=== PATIENT | female | born 1940 | race Caucasian/White ===

== ENCOUNTER → 2017-08-24 15:14 | Outpatient (CLI) | payer MEDICARE, MEDICAID, SELFPAY ==
--- NOTE | 2017-08-24 | DI.MG.S_ITS ---
BILATERAL DIGITAL SCREENING MAMMOGRAM 3D/2D WITH CAD: 08/24/2017 CLINICAL: Routine screening. Family history of breast cancer. Comparison is made to exams dated: 01/12/2016 mammogram, 09/20/2014 mammogram, and 02/19/2013 mammogram - [facility]. The tissue of both breasts is heterogeneously dense. This may lower the sensitivity of mammography. Current study was also evaluated with a Computer Aided Detection (CAD) system. No significant masses, calcifications, or other findings are seen in either breast. There has been no significant interval change. IMPRESSION: NEGATIVE There is no mammographic evidence of malignancy. A 1 year screening mammogram is recommended. This exam was interpreted at Station ID: [id number]. NOTE: For mammograms, a report in lay terms will be sent to the patient. Approximately 15% of breast malignancies will not be visualized mammographically. In the management of a palpable breast mass, a negative mammogram must not discourage biopsy of a clinically suspicious lesion. Electronically Signed By: Griffin mathis/willow:08/24/2017 16:36:49 letter sent: Normal Exam ACR BI-RADS Category 1: Negative [id number]
== END ==
PROVIDERS: Family Provider Internal Medicine; PCP Internal Medicine; Visit Provider Internal Medicine
DX: Z12.31 Encounter for screening mammogram for malignant neoplasm of breast (principal); Z80.3 Family history of malignant neoplasm of breast
CPT/HCPCS: 77063; 77067

== ENCOUNTER → 2017-09-15 15:04 | Outpatient (CLI) | payer MEDICARE, MEDICAID, SELFPAY ==
--- NOTE | 2017-09-15 | DI.RAD.S_ITS ---
PROCEDURE: XR CHEST 2V INDICATIONS: RHEUMATOID ARTHRITIS TECHNIQUE: 2 views of the chest were acquired. COMPARISON: [facility], , CHEST 2 VIEW, 07/17/2012, 10:45. FINDINGS: Surgical changes and devices: Surgical clips right upper quadrant. Lungs and pleura: No pleural effusions or pneumothorax. Lungs are clear. Mediastinum: Mediastinal contours are normal. Heart size is normal. Aortic calcification and mild tortuosity. Bones and chest wall: No suspicious bony abnormalities. Soft tissues appear unremarkable. IMPRESSION: No acute cardiopulmonary abnormality Dictated by: Tunde Hutton M.D. on 09/15/2017 at 15:32 Approved by: Tunde Hutton M.D. on 09/15/2017 at 15:33
== END ==
PROVIDERS: PCP Internal Medicine; Visit Provider Nurse Practitioner
DX: R06.9 Unspecified abnormalities of breathing (principal); R06.02 Shortness of breath
CPT/HCPCS: 71046

== ENCOUNTER 2017-10-04 13:58 | Emergency (ER) | payer MEDICARE, MEDICAID, SELFPAY ==
--- NOTE | 2017-10-04 14:08 | ED.CHESTPAIN ---
HPI - Chest Pain <Magaly King PA-C - Last Filed: 10/04/17 22:14> General Chief Complaint: Chest Pain Stated Complaint: CHEST PRESSURE Time Seen by Provider: 10/04/17 14:08 Source: patient Mode of arrival: ambulatory Limitations: no limitations History of Present Illness HPI narrative: This 77-year-old female comes to the ED today due to chest discomfort, which mainly occurred last weekend. She states that she felt like she had ?a fold in the middle? across her central chest and shoulders areas which worsened when she stood up straight. She describes this as a pressure sensation that caused her to have to make a lot of effort to stand but then she would feel it if she straightened up. She felt slightly short of breath when she stood straight. She has rheumatoid arthritis and thought this was secondary from changing her pain medication abruptly back from morphine to [place]. She states this persisted over the weekend but is better now, not present today. She denies dyspnea or chest pressure currently. She states she has her usual back and rib pain. She states that she has not had any new cough, fever, chills, or sweats. She has not had any new nausea or vomiting. She does have some long-term bloating and poor appetite. She states that she was up last night with some increased urinary frequency which is now resolved. She states that does occur with her Lasix. She states that the chest discomfort stayed the same whether she was walking or resting generally, could be instigated by the position change. She felt it in her shoulder and left side of her neck but not into her lower extremity or other areas. She denies any new trauma. She states that currently, the chest discomfort has resolved. She states maybe her chest feels slightly heavier than usual in general. She states she has her normal level of chronic pain. She states she came in due to calling her PCP for appointment but not able to see her until November. She was concerned that she should have this evaluated sooner Related Data Home Medications Medication Instructions Recorded Confirmed levothyroxine 0.088 mg PO QDAY #0 07/15/12 10/04/17 ascorbic acid (vitamin C) 500 mg PO QDAY #0 09/23/12 10/04/17 cholecalciferol (vitamin D3) 1,000 unit PO QDAY #0 09/23/12 10/04/17 [Vitamin D3] furosemide 40 mg PO QDAY #0 09/23/12 10/04/17 nitroglycerin [Nitrostat] 0.4 mg SUBLINGUAL PRN #0 09/23/12 10/04/17 Probiotic 1 cap PO DAILY 10/04/17 10/04/17 calcium carbonate [Calcium 500] 2 tab PO BID 10/04/17 10/04/17 cranberry 405 mg PO DAILY 10/04/17 10/04/17 metoprolol tartrate 50 mg PO BID 10/04/17 10/04/17 morphine 15 mg PO Q12H 10/04/17 10/04/17 potassium chloride 1 cap PO BID 10/04/17 10/04/17 ramipril 1 cap PO DAILY 10/04/17 10/04/17 ranitidine HCl 1 tab PO BID 10/04/17 10/04/17 Allergies Allergy/AdvReac Type Severity Reaction Status Date / Time Sulfa (Sulfonamide Allergy Mild Rash, hives Unverified 07/06/17 13:06 Antibiotics) [SULFA (SULFONAMIDE ANTIBIOTICS)] cortisone [CORTISONE] AdvReac Mild 'Shot BP Unverified 07/06/17 13:06 up' meperidine [MEPERIDINE] AdvReac Mild Confusion, Unverified 07/06/17 13:06 I get a little nutsy from it. propoxyphene [PROPOXYPHENE] AdvReac Mild Confusion, Unverified 07/06/17 13:06 I get a little nutsy. Review of Systems <Magaly King PA-C - Last Filed: 10/04/17 22:14> Review of Systems All systems reviewed & are unremarkable except as noted in HPI and below Exam <Magaly King PA-C - Last Filed: 10/04/17 22:14> Narrative Exam Narrative: GENERAL APPEARANCE: Patient sitting comfortably, in no distress. NECK/THYROID: Neck supple, no JVD. LUNGS: Clear to auscultation bilaterally. HEART: Regular rate and rhythm without murmur, normal S1, S2, no S3 or S4. ABDOMEN: Soft, NT, ND, + BS x 4 quadrants EXTREMITIES: No cyanosis or edema. No calf tenderness NEUROLOGIC: Alert and oriented, normal speech, and coordination. DERM: No exanthem Initial Vital Signs Initial Vital Signs: Vital Signs Pulse Rate 55 L 10/04/17 14:11 Respiratory Rate 11 L 10/04/17 14:11 Blood Pressure 177/91 H 10/04/17 14:11 Pulse Oximetry 100 10/04/17 14:11 <DO Rodney James Last Filed: 10/06/17 07:22> Initial Vital Signs Initial Vital Signs: Vital Signs Pulse Rate 55 L 10/04/17 14:11 Respiratory Rate 11 L 10/04/17 14:11 Blood Pressure 177/91 H 10/04/17 14:11 Pulse Oximetry 100 10/04/17 14:11 Course <COLLIN Navarrete Last Filed: 10/04/17 22:14> Orders Ordered: Discontinued Medications Sodium Chloride (Normal Saline 0.9%) 1,000 mls @ 150 mls/hr IV CONT [facility] Vital Signs - 8 hr 10/04/17 14:11 10/04/17 14:12 10/04/17 14:45 Temperature 97.8 F Pulse Rate 55 L 55 L 58 L Respiratory Rate 11 L 11 L 13 Blood Pressure 177/91 H Blood Pressure [Left Arm] 177/91 H 182/89 H Pulse Oximetry 100 100 99 10/04/17 15:23 10/04/17 16:07 Temperature Pulse Rate 53 L 65 Respiratory Rate 15 14 Blood Pressure 161/82 H Blood Pressure [Left Arm] 159/81 H Pulse Oximetry 98 100 <DO Rodney James Last Filed: 10/06/17 07:22> Orders Ordered: Discontinued Medications Sodium Chloride (Normal Saline 0.9%) 1,000 mls @ 150 mls/hr IV CONT [facility] Vital Signs - 8 hr 10/04/17 14:11 10/04/17 14:12 10/04/17 14:45 Temperature 97.8 F Pulse Rate 55 L 55 L 58 L Respiratory Rate 11 L 11 L 13 Blood Pressure 177/91 H Blood Pressure [Left Arm] 177/91 H 182/89 H Pulse Oximetry 100 100 99 10/04/17 15:23 10/04/17 16:07 Temperature Pulse Rate 53 L 65 Respiratory Rate 15 14 Blood Pressure 161/82 H Blood Pressure [Left Arm] 159/81 H Pulse Oximetry 98 100 MDM - Chest Pain <COLLIN Navarrete Last Filed: 10/04/17 22:14> Lab Data Result diagrams: 10/04/17 14:42 10/04/17 14:42 Lab Results 10/04/17 10/04/17 Range/Units 14:42 14:42 WBC 6.2 (4.5-11.0) X10^3/uL RBC 3.94 L (4.0-5.2) X10^6/uL Hgb 12.2 (12.0-16.0) g/dL Hct 36.5 (36-46) % MCV 92.6 (80-100) fL MCH 30.8 (26-34) PG MCHC 33.3 (30-36) % RDW 13.2 (11.6-14.8) % Plt Count 293 (150-400) X10^3/uL Neut % (Auto) 63.0 (50-75) % Lymph % (Auto) 21.2 L (25-40) % [place] % (Auto) 12.8 (3-14) % Eos % (Auto) 2.7 (2-4) % Baso % (Auto) 0.3 (0-2) % Neut # (Auto) 3900 (8704-7933) /uL Sodium 143 (137-145) mmol/L Potassium 4.7 (3.4-5.1) mmol/L Chloride 106 (98-107) mmol/L Carbon Dioxide 28 (22-32) mmol/L BUN 17 (7-17) mg/dL Creatinine 0.80 (0.52-1.04) mg/dL Estimated GFR > 60.0 (>60) mL/min BUN/Creatinine Ratio 21.3 (6-22) Glucose 86 (80-110) mg/dL Calcium 9.8 (8.4-10.2) mg/dL Total Bilirubin 0.8 (0.2-1.3) mg/dL AST 37 H (14-36) IU/L ALT 24 (9-52) IU/L Alkaline Phosphatase 75 (38-126) U/L Total Creatine Kinase 103 (30-135) U/L Troponin I < 0.012 (0.01-0.034) ng/mL Total Protein 8.0 (6.3-8.2) g/dL Albumin 4.3 (3.5-5.0) g/dL Globulin 3.7 (1.7-4.1) g/dL Albumin/Globulin Ratio 1.2 (1.0-2.8) Lipase 252 (23-300) U/L ECG Data Attestation: I personally reviewed and interpreted this ECG as follows: (Sinus bradycardia with rate 57, first-degree AV block, and left axis deviation. No acute change) Prior ECG tracings: available for review <Daljit Son DO - Last Filed: 10/06/17 07:22> Lab Data Lab Results 10/04/17 10/04/17 Range/Units 14:42 14:42 WBC 6.2 (4.5-11.0) X10^3/uL RBC 3.94 L (4.0-5.2) X10^6/uL Hgb 12.2 (12.0-16.0) g/dL Hct 36.5 (36-46) % MCV 92.6 (80-100) fL MCH 30.8 (26-34) PG MCHC 33.3 (30-36) % RDW 13.2 (11.6-14.8) % Plt Count 293 (150-400) X10^3/uL Neut % (Auto) 63.0 (50-75) % Lymph % (Auto) 21.2 L (25-40) % [place] % (Auto) 12.8 (3-14) % Eos % (Auto) 2.7 (2-4) % Baso % (Auto) 0.3 (0-2) % Neut # (Auto) 3900 (2771-4527) /uL Sodium 143 (137-145) mmol/L Potassium 4.7 (3.4-5.1) mmol/L Chloride 106 (98-107) mmol/L Carbon Dioxide 28 (22-32) mmol/L BUN 17 (7-17) mg/dL Creatinine 0.80 (0.52-1.04) mg/dL Estimated GFR > 60.0 (>60) mL/min BUN/Creatinine Ratio 21.3 (6-22) Glucose 86 (80-110) mg/dL Calcium 9.8 (8.4-10.2) mg/dL Total Bilirubin 0.8 (0.2-1.3) mg/dL AST 37 H (14-36) IU/L ALT 24 (9-52) IU/L Alkaline Phosphatase 75 (38-126) U/L Total Creatine Kinase 103 (30-135) U/L Troponin I < 0.012 (0.01-0.034) ng/mL Total Protein 8.0 (6.3-8.2) g/dL Albumin 4.3 (3.5-5.0) g/dL Globulin 3.7 (1.7-4.1) g/dL Albumin/Globulin Ratio 1.2 (1.0-2.8) Lipase 252 (23-300) U/L Discharge Plan Departure Patient Disposition: Home, Self-Care Clinical Impression: Atypical chest pain Discharge Date/Time: 10/04/17 16:07 Interventions: ED Discharge Assessment Last Done: 10/04/17 16:07 Instructions: DI for Atypical Chest Pain Activity Restrictions/Additional Instructions: Please return as we talked about if you have acutely worsening symptoms again. Your testing including her heart markers are normal today, but if you start having the acute symptoms again like you had over the weekend, you should return. Otherwise, please call your PCP office and let them know you were seen in the ED for chest pain and we advised you to follow up in the next week to talk about whether any further testing such as a stress test should be done. Prescriptions: No Action levothyroxine 88 MCG tablet 0.088 mg PO QDAY Qty: 0 RF: 0 ascorbic acid (vitamin C) 500 MG tablet 500 mg PO QDAY Qty: 0 RF: 0 cholecalciferol (vitamin D3) [Vitamin D3] 1,000 unit Tablet 1,000 unit PO QDAY Qty: 0 RF: 0 nitroglycerin [Nitrostat] 0.4 MG tablet, sublingual 0.4 mg Sublingual PRN Qty: 0 RF: 0 furosemide 40 MG tablet 40 mg PO QDAY Qty: 0 RF: 0 potassium chloride 10 mEq capsule, extended release 1 cap PO BID RF: 0 calcium carbonate [Calcium 500] 500 mg calcium (1,250 mg) Tablet 2 tab PO BID RF: 0 ranitidine HCl 150 mg tablet 1 tab PO BID RF: 0 ramipril 2.5 mg capsule 1 cap PO DAILY RF: 0 cranberry 405 mg Capsule 405 mg PO DAILY RF: 0 metoprolol tartrate 50 mg tablet 50 mg PO BID RF: 0 morphine 15 mg tablet extended release 15 mg PO Q12H RF: 0 Probiotic 1 cap PO DAILY RF: 0 Referrals: Francoise Yanes MD [Primary Care Provider] - <Daljit Son DO - Last Filed: 10/06/17 07:22> Cosign ED Attending Bala Attestation: I was available for consultation during this patient's emergency department encounter
--- NOTE | 2017-10-04 14:09 | DI.RAD.S_ITS ---
PROCEDURE: XR CHEST 1V INDICATIONS: chest pain TECHNIQUE: One view of the chest was acquired. COMPARISON: [facility], CR, XR CHEST 2V, 09/15/2017, 14:54. FINDINGS: Surgical changes and devices: None. Lungs and pleura: No pleural effusions or pneumothorax. Lungs are clear. Mediastinum: Mediastinal contours appear normal. Heart size is normal. Bones and chest wall: No suspicious bony lesions. Overlying soft tissues appear unremarkable. IMPRESSION: 1. No acute cardiopulmonary disease. Dictated by: Vlad Hernandez M.D. on 10/04/2017 at 14:34 Approved by: Vlad Hernandez M.D. on 10/04/2017 at 14:34
[2017-10-04 14:11] VITALS: BP 177/91; PULSE 55; RESP 11; O2SAT 100
[2017-10-04 14:12] VITALS: BP 177/91; PULSE 55; RESP 11; TEMP 36.6; O2SAT 100
[2017-10-04 14:45] VITALS: BP 182/89; PULSE 58; RESP 13; O2SAT 99
[2017-10-04 14:48] LABS: Add Manual Diff / Slide Review NO; Basophils Percent Auto 0.3 % (0-2); Eosinophils Percent Auto 2.7 % (2-4); Hematocrit 36.5 % (36-46); Hemoglobin 12.2 g/dL (12.0-16.0); Lymphocytes Percent Auto 21.2 % (25-40); Mean Corpuscular HGB Conc 33.3 % (30-36); Mean Corpuscular Hemoglobin 30.8 PG (26-34); Mean Corpuscular Volume 92.6 fL (80-100); Monocytes Percent Auto 12.8 % (3-14); Neutrophils Absolute Auto 3900 /uL (3000-5900); Platelet Count 293 X10^3/uL (150-400); Red Blood Cell Count 3.94 X10^6/uL (4.0-5.2); Red Cell Distribution Width 13.2 % (11.6-14.8); White Blood Cell Count 6.2 X10^3/uL (4.5-11.0)
[2017-10-04 14:57] LABS: Alanine Aminotransferase 24 IU/L (9-52); Albumin 4.3 g/dL (3.5-5.0); Albumin Globulin Ratio 1.2 (1.0-2.8); Alkaline Phosphatase 75 U/L (38-126); Aspartate Aminotransferase 37 IU/L (14-36); BUN Creatinine Ratio 21.3 (6-22); Bilirubin Total 0.8 mg/dL (0.2-1.3); Blood Urea Nitrogen 17 mg/dL (7-17); Calcium 9.8 mg/dL (8.4-10.2); Carbon Dioxide 28 mmol/L (22-32); Chloride 106 mmol/L (98-107); Creatine Kinase 103 U/L (30-135); Estimated Glomerular Filt Rate > 60.0 mL/min (>60); Globulin 3.7 g/dL (1.7-4.1); Glucose 86 mg/dL (80-110); HEMOLYSIS 26 (0-50); Lipase 252 U/L (23-300); Potassium 4.7 mmol/L (3.4-5.1); Sodium 143 mmol/L (137-145)
[2017-10-04 15:12] LABS: Troponin I < 0.012 ng/mL (0.01-0.034)
[2017-10-04 15:23] VITALS: BP 159/81; PULSE 53; RESP 15; O2SAT 98
[2017-10-04 16:07] VITALS: BP 161/82; PULSE 65; RESP 14; O2SAT 100
== END 2017-10-04 16:07 | disposition home or self-care (01) ==
PROVIDERS: Emergency Provider Internal Medicine; Family Provider Internal Medicine; PCP Internal Medicine
DX: R07.89 Other chest pain (principal)
CPT/HCPCS: 36591; 71045; 80053; 82550; 82553; 83690; 84484; 85025; 93005; 99283; 99285

== ENCOUNTER 2017-10-22 05:32 | Emergency (ER) | payer MEDICARE, MEDICAID, SELFPAY ==
[2017-10-22 05:35] VITALS: BP 168/100; PULSE 78; RESP 19; O2SAT 98
[2017-10-22 05:56] VITALS: BP 154/91; PULSE 78; RESP 19; TEMP 36.7; O2SAT 98; BMI 28.1
--- NOTE | 2017-10-22 06:04 | PC.NURSE ---
pt presents to er reporting she may be withdrawing from opioids. she has been taking hydrocodene for [address] michelle has switched her medicaions from hydrocodene to morphine. also she has been switched from enbril to yadi. Her medication regiment changes have not been working for her. her pain is increasing and she is very uncomfortable. Dr michelle has since changed her back to hydrocodone but she is still on enbril. she has an appointment with rhumatologist on tuesday to hopefully switch her back to yadi. she now reports having some tremmors and high blood pressure and is concerned she is withdrawing.
[2017-10-22] MEDS: OXYCODONE/APAP 5/325 PREPACK 1 BOTTLE MISC (06:33)
--- NOTE | 2017-10-22 06:35 | ED_ITS ---
HPI - Recheck/Abnormal Lab/Rx General Chief Complaint: Recheck/Abnormal Lab/Rx Stated Complaint: withdraw form medication Time Seen by Provider: 10/22/17 05:38 Source: patient Mode of arrival: ambulatory Limitations: no limitations History of Present Illness HPI narrative: Patient is a 77-year-old female with severe rheumatoid arthritis and a longstanding history of chronic pain. She has been on hydrocodone for a number of years. A few months ago her primary tried to change her over to extended-release morphine. She said that did not fit her. The morphine was stopped and she was changed back over to her original dose of 5/325 [place] around 09/28/2017. She has noticed since then that it just isn't working like it use to work. She used to be on 7.5 she has taken a couple of 7.5 and still did not get much relief. She has been taking the same amount 4-6 tablets every day she took them yesterday but is not working. She also is changing her rheumatoid arthritis medication. She was on Enbrel for number of years however that was changed to Humira of back in July. She does not feel like Humira is working either so in the process of changing that over to ronna all. However she missed a dose of Humira and has not taken any Enbrel. She has an appointment with her exhibition specialist on October 31. She was does not have any complaints no fevers chills nausea vomiting diarrhea abdominal pain. She has her chronic ongoing all rheumatoid arthritis pain. complaint: medication refill request Related Data Home Medications Medication Instructions Recorded Confirmed levothyroxine 0.088 mg PO QDAY #0 07/15/12 10/22/17 ascorbic acid (vitamin C) 500 mg PO QDAY #0 09/23/12 10/22/17 cholecalciferol (vitamin D3) 1,000 unit PO QDAY #0 09/23/12 10/22/17 [Vitamin D3] furosemide 40 mg PO QDAY #0 09/23/12 10/22/17 nitroglycerin [Nitrostat] 0.4 mg SUBLINGUAL PRN #0 09/23/12 10/22/17 Probiotic 1 cap PO DAILY 10/04/17 10/22/17 calcium carbonate [Calcium 500] 2 tab PO BID 10/04/17 10/22/17 cranberry 405 mg PO DAILY 10/04/17 10/22/17 metoprolol tartrate 50 mg PO BID 10/04/17 10/22/17 potassium chloride 1 cap PO BID 10/04/17 10/22/17 ramipril 1 cap PO DAILY 10/04/17 10/22/17 ranitidine HCl 1 tab PO BID 10/04/17 10/22/17 hydrocodone-acetaminophen 1 tab PO Q4-6H PRN MDD N 10/22/17 10/22/17 Previous Rx's Medication Instructions Recorded oxycodone-acetaminophen [Percocet] 1 tab PO Q4-6H PRN #10 tab 10/22/17 Allergies Allergy/AdvReac Type Severity Reaction Status Date / Time Sulfa (Sulfonamide Allergy Mild Rash, hives Unverified 10/22/17 06:01 Antibiotics) [SULFA (SULFONAMIDE ANTIBIOTICS)] cortisone [CORTISONE] AdvReac Mild 'Shot BP Unverified 10/22/17 06:01 up' meperidine [MEPERIDINE] AdvReac Mild Confusion, Unverified 10/22/17 06:01 I get a little nutsy from it. propoxyphene [PROPOXYPHENE] AdvReac Mild Confusion, Unverified 10/22/17 06:01 I get a little nutsy. Review of Systems Review of Systems All systems reviewed & are unremarkable except as noted in HPI and below Cardiovascular Denies chest pain, Denies rapid heart rate, Denies lightheadedness, Denies dyspnea and Denies dyspnea on exertion Respiratory Denies cough, Denies dyspnea and Denies dyspnea on exertion Gastrointestinal Gastrointestinal: Denies abdominal pain, Denies diarrhea, Denies loose stools and Denies nausea Musculoskeletal Denies back pain, Denies muscle weakness, Denies numbness and Denies tingling Integumentary/Breasts Denies erythema, Denies rash and Denies wounds Neurologic Denies numbness and Denies tingling [facility] Medical History Diverticulosis (Chronic) Goiter (Chronic) Labile hypertension (Chronic) Lumbar degenerative disc disease (Chronic) Osteoporosis (Chronic) Rectal bleeding (Chronic) Rheumatoid arthritis (Chronic) Social History Smoking Status: Never smoker alcohol intake: never substance use type: does not use Exam Initial Vital Signs Initial Vital Signs: Vital Signs Pulse Rate 78 10/22/17 05:35 Respiratory Rate 19 10/22/17 05:35 Blood Pressure 168/100 H 10/22/17 05:35 Pulse Oximetry 98 10/22/17 05:35 GENERAL: [Well-appearing, well-nourished] and in [no acute] distress. HEENT: Head atraumatic,EOMI, pupils reactive CARDIOVASCULAR: Regular rate and rhythm without murmurs, rubs or gallops. RESPIRATORY: Breath sounds equal bilaterally, no wheezes rales or rhonchi. ABDOMEN: Soft, nontender. Normoactive bowel sounds all 4 quadrants. No guarding or rebound. EXTREMITIES: arthritic joints NEUROLOGICAL: Alert and oriented x4.Normal gait and speech. SKIN: Warm, dry, no laceration, no petechiae, no rashes or lesions. Course Orders Ordered: Discontinued Medications Oxycodone/Acetaminophen (Endocet 5/325 [place]) 1 bottle MISC SEEINSTR ONE Stop: 10/22/17 06:29 Last Admin: 10/22/17 06:33 Dose: 1 bottle Vital Signs - 8 hr 10/22/17 05:35 10/22/17 05:56 Temperature 98.1 F Pulse Rate 78 78 Respiratory Rate 19 19 Blood Pressure 154/91 H Blood Pressure [Left Arm] 168/100 H Pulse Oximetry 98 98 MDM - Recheck/Abnormal Lab/Rx MDM Narrative Medical decision making narrative: Patient does not have signs or symptoms of opiate withdrawal more of opiate tolerance. It sounds as though after taking morphine and going back to hydrocodone hydrocodone is no longer working. However she also missed a dose of her Humira which may be why she is having increased pain. She says this is been ongoing even with the Humira. She does not appear toxic or in a severe amount of pain. At this point discussed plan of changing her opiate medication to Percocet. She will try Percocet over the weekend. We discussed she may also need a short course of steroids to help with the pain. She is in the process of changing back to Enbrel. She has appointment with exhibition specialist October 31. She is point with her PCP in 2 days. I discussed all findings with the patient and brother/caregiver. Education has been performed regarding treatment plan, diagnosis, warning signs and symptoms and all concerns have been addressed. Verbally agree with and understood all of the above. Discharge Plan Departure Patient Disposition: Home, Self-Care Clinical Impression: Rheumatoid arthritis, Chronic pain Discharge Date/Time: 10/22/17 06:48 Interventions: ED Discharge Assessment Last Done: 10/22/17 06:47 Instructions: DI for Chronic Pain -- Adult Activity Restrictions/Additional Instructions: *You have been diagnosed with rheumatoid arthritis, chronic pain *What to do: Try Percocet over the weekend to see if it helps her pain. Stop taking hydrocodone DO NOT combine these 2 medications. -if you still do not have relief, discussed with her primary care physician on Tuesday. This may also be because you have missed a dose of Humira. You may need a short course of prednisone as well. Please discuss all these options with your doctor *Continue to take medications as directed Percocet 1 tablet every 4 hr or 2 tablets every 6 hr *Follow up with your primary care provider as scheduled for Tuesday *Return to ER if you should have any new, worsening or concerning symptoms CONTROLLED SUBSTANCE DISCHARGE (Narcotoic/benzodiazepine/Flexeril/Phenergan) 1. You have been prescribed narcotic medications, it does have acetaminophen/ Tylenol/paracetamol in it so do not take extra Tylenol or Tylenol containing products 2. Please understand that we cannot provide further refills of narcotics, benzodiazepines or controlled substances through the ED and her pain management will need to be through your provider. 3. While on these medications you cannot drive or operate heavy machinery. 4. You cannot sign legal documents or perform any duties such as this. 5. As long as you're taking opiate pain medications he should also be taking a stool softener such as Colace, Dulcolax, MiraLAX or prune juice, to help avoid constipation. Prescriptions: New oxycodone-acetaminophen [Percocet] 5-325 mg tablet 1 tab PO Q4-6H PRN (Reason: pain) Qty: 10 RF: 0 No Action levothyroxine 88 MCG tablet 0.088 mg PO QDAY Qty: 0 RF: 0 ascorbic acid (vitamin C) 500 MG tablet 500 mg PO QDAY Qty: 0 RF: 0 cholecalciferol (vitamin D3) [Vitamin D3] 1,000 unit Tablet 1,000 unit PO QDAY Qty: 0 RF: 0 nitroglycerin [Nitrostat] 0.4 MG tablet, sublingual 0.4 mg Sublingual PRN Qty: 0 RF: 0 furosemide 40 MG tablet 40 mg PO QDAY Qty: 0 RF: 0 potassium chloride 10 mEq capsule, extended release 1 cap PO BID RF: 0 calcium carbonate [Calcium 500] 500 mg calcium (1,250 mg) Tablet 2 tab PO BID RF: 0 ranitidine HCl 150 mg tablet 1 tab PO BID RF: 0 ramipril 2.5 mg capsule 1 cap PO DAILY RF: 0 cranberry 405 mg Capsule 405 mg PO DAILY RF: 0 metoprolol tartrate 50 mg tablet 50 mg PO BID RF: 0 Probiotic 1 cap PO DAILY RF: 0 hydrocodone-acetaminophen 5-325 mg tablet 1 tab PO Q4-6H MDD N PRN (Reason: Pain, Moderate) RF: 0
[2017-10-22 06:47] VITALS: BP 138/87; PULSE 62; RESP 14; O2SAT 98
== END 2017-10-22 06:48 | disposition home or self-care (01) ==
PROVIDERS: Emergency Provider Emergency Medicine; Family Provider Internal Medicine; PCP Internal Medicine
DX: M06.9 Rheumatoid arthritis, unspecified (principal); G89.29 Other chronic pain
CPT/HCPCS: 99282; 99291

== ENCOUNTER 2017-11-24 00:58 | Emergency (ER) | payer MEDICARE, MEDICAID, SELFPAY ==
[2017-11-24 01:12] VITALS: BP 140/125; PULSE 66; RESP 16; TEMP 36.4; O2SAT 100; BMI 27.4
--- NOTE | 2017-11-24 01:54 | ED.CHESTPAIN ---
HPI - Chest Pain General Chief Complaint: Chest Pain Stated Complaint: CHEST HURTS, SQUEEZING Time Seen by Provider: 11/24/17 00:59 Source: patient and family Mode of arrival: ambulatory Limitations: no limitations History of Present Illness HPI narrative: 77-year-old female with many years of chronic chest pain presents to the emergency department with her in the chief complaint of chest pain not on like which she has dealt with for many years. For quite some time the patient's pain had been under control until few years ago when she was taken off opioids input on Neurontin. Since then her difficulty in controlling pain has been present if not increasing. She initially had been controlled well with hydrocodone and has gone through various trials of enbrel and Humira. She denies new pain, new symptoms such as SOB, fever, chills, or other MD complaint: chest pain Duration: constant Onset: during rest Pain location: substernal Severity: moderate Quality: tightness and aching Pain radiation: RUE and LUE Relieving factors: nothing Exacerbating factors: nothing Related Data Home Medications Medication Instructions Recorded Confirmed levothyroxine 0.088 mg PO QDAY #0 07/15/12 10/22/17 ascorbic acid (vitamin C) 500 mg PO QDAY #0 09/23/12 10/22/17 cholecalciferol (vitamin D3) 1,000 unit PO QDAY #0 09/23/12 10/22/17 [Vitamin D3] furosemide 40 mg PO QDAY #0 09/23/12 10/22/17 nitroglycerin [Nitrostat] 0.4 mg SUBLINGUAL PRN #0 09/23/12 10/22/17 Probiotic 1 cap PO DAILY 10/04/17 10/22/17 calcium carbonate [Calcium 500] 2 tab PO BID 10/04/17 10/22/17 cranberry 405 mg PO DAILY 10/04/17 10/22/17 metoprolol tartrate 50 mg PO BID 10/04/17 10/22/17 potassium chloride 1 cap PO BID 10/04/17 10/22/17 ramipril 1 cap PO DAILY 10/04/17 10/22/17 ranitidine HCl 1 tab PO BID 10/04/17 10/22/17 hydrocodone-acetaminophen 1 tab PO Q4-6H PRN MDD N 10/22/17 10/22/17 Previous Rx's Medication Instructions Recorded oxycodone-acetaminophen [Percocet] 1 tab PO Q4-6H PRN #10 tab 10/22/17 hydromorphone [Dilaudid] 2 mg PO Q6H PRN #14 tab 11/24/17 Allergies Allergy/AdvReac Type Severity Reaction Status Date / Time Sulfa (Sulfonamide Allergy Mild Rash, hives Unverified 10/22/17 06:01 Antibiotics) [SULFA (SULFONAMIDE ANTIBIOTICS)] cortisone [CORTISONE] AdvReac Mild 'Shot BP Unverified 10/22/17 06:01 up' meperidine [MEPERIDINE] AdvReac Mild Confusion, Unverified 10/22/17 06:01 I get a little nutsy from it. propoxyphene [PROPOXYPHENE] AdvReac Mild Confusion, Unverified 10/22/17 06:01 I get a little nutsy. Review of Systems Review of Systems All systems reviewed & are unremarkable except as noted in HPI and below Constitutional Denies chills, Denies fever(s), Denies lethargy and Denies weakness Eyes Denies change in vision, Denies eye discharge, Denies irritation and Denies loss of vision ENT Ears, Nose, Mouth, and Throat: Denies change in voice, Denies neck pain and Denies sore throat Cardiovascular Reports chest pain, Denies irregular heart rhythm, Denies lightheadedness, Denies palpitations, Denies dyspnea, Denies dyspnea on exertion and Denies orthopnea Respiratory Denies cough, Denies dyspnea, Denies dyspnea on exertion and Denies wheezing Gastrointestinal Gastrointestinal: Denies abdominal pain, Denies change in bowel habits, Denies diarrhea, Denies nausea and Denies vomiting Genitourinary Denies hematuria, Denies flank pain, Denies urinary incontinence and Denies urinary urgency Musculoskeletal Denies neck pain Integumentary/Breasts Denies pruritus, Denies erythema, Denies rash and Denies wounds Neurologic Denies confusion, Denies loss of vision and Denies weakness Psychiatric Denies anxiety, Denies confusion, Denies depression, Denies homicidal ideation and Denies suicidal ideation Endocrine Denies palpitations Hematologic/Lymphatic Denies easy bruising Allergic/Immunologic Denies wheezing [facility] Medical History Diverticulosis (Chronic) Goiter (Chronic) Labile hypertension (Chronic) Lumbar degenerative disc disease (Chronic) Osteoporosis (Chronic) Rectal bleeding (Chronic) Rheumatoid arthritis (Chronic) Social History Smoking Status: Never smoker alcohol intake: never substance use type: does not use Exam Narrative Exam Narrative: GENERAL: Patient is obviously uncomfortable but resting HEAD: Atraumatic. Normocephalic. No temporal or scalp tenderness. EYES: Pupils equal round and reactive. Extraocular motions intact. No scleral icterus. No injection or drainage. ENT: Nose without bleeding, purulent drainage or septal hematoma. Throat without erythema, tonsillar hypertrophy or exudate. Uvula midline. Airway patent. NECK: Trachea midline. No JVD or lymphadenopathy. Supple, nontender, no meningeal signs. CARDIOVASCULAR: Regular rate and rhythm without murmurs, gallops, or rubs. RESPIRATORY: Clear to auscultation. Breath sounds equal bilaterally. No wheezes, rales, or rhonchi. GASTROINTESTINAL: Abdomen soft, non-tender, nondistended. No hepato-splenomegaly, or palpable masses. No guarding. EXTREMITIES: No clubbing, cyanosis, or edema. No joint tenderness, effusion, or edema noted. BACK: Nontender without deformity or crepitance. No flank tenderness. NEURO: AOx3. SKIN: No rash or erythema. Initial Vital Signs Initial Vital Signs: Vital Signs Temperature 97.6 F 11/24/17 01:12 Pulse Rate 66 11/24/17 01:12 Respiratory Rate 16 11/24/17 01:12 Blood Pressure 140/125 H 11/24/17 01:12 Pulse Oximetry 100 11/24/17 01:12 Course Orders Ordered: ED Orders 11/24/17 EKG-12 Lead Stat 11/24/17 01:40 Basic Metabolic Panel Stat Complete Blood Count AUTO DIFF Stat Troponin I Stat Discontinued Medications Hydromorphone HCl (Dilaudid) 1 mg IV NOW ONE Stop: 11/24/17 03:16 Last Admin: 11/24/17 03:21 Dose: 1 mg Vital Signs - 8 hr 11/24/17 01:12 Temperature 97.6 F Pulse Rate 66 Respiratory Rate 16 Blood Pressure 140/125 H Pulse Oximetry 100 MDM - Chest Pain Lab Data Result diagrams: 11/24/17 01:40 11/24/17 01:40 Lab Results 11/24/17 11/24/17 11/24/17 Range/Units 01:40 01:40 01:40 WBC 7.4 (4.5-11.0) X10^3/uL RBC 3.92 L (4.0-5.2) X10^6/uL Hgb 12.4 (12.0-16.0) g/dL Hct 36.8 (36-46) % MCV 93.8 (80-100) fL MCH 31.5 (26-34) PG MCHC 33.6 (30-36) % RDW 14.4 (11.6-14.8) % Plt Count 278 (150-400) X10^3/uL Neut % (Auto) 58.9 (50-75) % Lymph % (Auto) 23.5 L (25-40) % Letcher % (Auto) 13.7 (3-14) % Eos % (Auto) 3.3 (2-4) % Baso % (Auto) 0.6 (0-2) % Neut # (Auto) 4300 (5077-2050) /uL Sodium 146 H (137-145) mmol/L Potassium 4.4 (3.4-5.1) mmol/L Chloride 108 H (98-107) mmol/L Carbon Dioxide 28 (22-32) mmol/L BUN 18 H (7-17) mg/dL Creatinine 0.80 (0.52-1.04) mg/dL Estimated GFR > 60.0 (>60) mL/min BUN/Creatinine Ratio 22.5 H (6-22) Glucose 109 (80-110) mg/dL Calcium 9.9 (8.4-10.2) mg/dL Troponin I < 0.012 (0.01-0.034) ng/mL Discharge Plan Departure Patient Disposition: Home Clinical Impression: Chest pain Instructions: DI for Chest Pain Activity Restrictions/Additional Instructions: *You have been diagnosed with [ chronic chest pain ] *What to do: *Take medications as directed *Follow up with your primary care provider in 2-3 days, call for an appointment. Let them know you were seen in the Emergency Department and that we ask that you be seen in follow up *Return to ER if you should have any new, worsening or concerning symptoms Prescriptions: New hydromorphone [Dilaudid] 2 mg tablet 2 mg PO Q6H PRN (Reason: pain) Qty: 14 RF: 0 No Action levothyroxine 88 MCG tablet 0.088 mg PO QDAY Qty: 0 RF: 0 ascorbic acid (vitamin C) 500 MG tablet 500 mg PO QDAY Qty: 0 RF: 0 cholecalciferol (vitamin D3) [Vitamin D3] 1,000 unit Tablet 1,000 unit PO QDAY Qty: 0 RF: 0 nitroglycerin [Nitrostat] 0.4 MG tablet, sublingual 0.4 mg Sublingual PRN Qty: 0 RF: 0 furosemide 40 MG tablet 40 mg PO QDAY Qty: 0 RF: 0 potassium chloride 10 mEq capsule, extended release 1 cap PO BID RF: 0 calcium carbonate [Calcium 500] 500 mg calcium (1,250 mg) Tablet 2 tab PO BID RF: 0 ranitidine HCl 150 mg tablet 1 tab PO BID RF: 0 ramipril 2.5 mg capsule 1 cap PO DAILY RF: 0 cranberry 405 mg Capsule 405 mg PO DAILY RF: 0 metoprolol tartrate 50 mg tablet 50 mg PO BID RF: 0 Probiotic 1 cap PO DAILY RF: 0 hydrocodone-acetaminophen 5-325 mg tablet 1 tab PO Q4-6H MDD N PRN (Reason: Pain, Moderate) RF: 0 oxycodone-acetaminophen [Percocet] 5-325 mg tablet 1 tab PO Q4-6H PRN (Reason: pain) Qty: 10 RF: 0
[2017-11-24 02:00] VITALS: BP 140/125; PULSE 66; RESP 16; TEMP 36.4; O2SAT 100; BMI 27.4
[2017-11-24 02:37] LABS: Add Manual Diff / Slide Review NO; Basophils Percent Auto 0.6 % (0-2); Eosinophils Percent Auto 3.3 % (2-4); Hematocrit 36.8 % (36-46); Hemoglobin 12.4 g/dL (12.0-16.0); Lymphocytes Percent Auto 23.5 % (25-40); Mean Corpuscular HGB Conc 33.6 % (30-36); Mean Corpuscular Hemoglobin 31.5 PG (26-34); Mean Corpuscular Volume 93.8 fL (80-100); Monocytes Percent Auto 13.7 % (3-14); Neutrophils Absolute Auto 4300 /uL (3000-5900); Neutrophils Percent Auto 58.9 % (50-75); Platelet Count 278 X10^3/uL (150-400); Red Blood Cell Count 3.92 X10^6/uL (4.0-5.2); Red Cell Distribution Width 14.4 % (11.6-14.8); White Blood Cell Count 7.4 X10^3/uL (4.5-11.0)
[2017-11-24 02:41] LABS: BUN Creatinine Ratio 22.5 (6-22); Blood Urea Nitrogen 18 mg/dL (7-17); Calcium 9.9 mg/dL (8.4-10.2); Carbon Dioxide 28 mmol/L (22-32); Chloride 108 mmol/L (98-107); Estimated Glomerular Filt Rate > 60.0 mL/min (>60); Glucose 109 mg/dL (80-110); HEMOLYSIS 30 (0-50); Potassium 4.4 mmol/L (3.4-5.1); Sodium 146 mmol/L (137-145)
[2017-11-24 02:54] LABS: Troponin I < 0.012 ng/mL (0.01-0.034)
[2017-11-24] MEDS: HYDROMORPHONE 1 MG INJ IV (03:21)
[2017-11-24 04:53] VITALS: BP 179/71; PULSE 56; RESP 14; O2SAT 97
== END 2017-11-24 04:56 | disposition home or self-care (01) ==
PROVIDERS: Emergency Provider Emergency Medicine; Family Provider Internal Medicine; PCP Internal Medicine
DX: R07.89 Other chest pain (principal)
CPT/HCPCS: 80048; 84484; 85025; 93005; 93010; 96374; 99282; 99284; J1170

== ENCOUNTER → 2017-12-02 15:14 | Outpatient (REF) | payer MEDICARE, MEDICAID, SELFPAY ==
[2017-12-02 15:22] LABS: Add Manual Diff / Slide Review NO; Basophils Percent Auto 0.5 % (0-2); Hematocrit 38.5 % (36-46); Lymphocytes Percent Auto 18.5 % (25-40); Mean Corpuscular HGB Conc 33.6 % (30-36); Mean Corpuscular Hemoglobin 31.9 PG (26-34); Mean Corpuscular Volume 94.7 fL (80-100); Monocytes Percent Auto 10.6 % (3-14); Neutrophils Absolute Auto 4800 /uL (3000-5900); Neutrophils Percent Auto 69.4 % (50-75); Platelet Count 301 X10^3/uL (150-400); Red Blood Cell Count 4.07 X10^6/uL (4.0-5.2); Red Cell Distribution Width 14.6 % (11.6-14.8); White Blood Cell Count 6.9 X10^3/uL (4.5-11.0)
[2017-12-02 15:26] LABS: Alanine Aminotransferase 40 IU/L (9-52); Albumin 4.2 g/dL (3.5-5.0); Albumin Globulin Ratio 1.2 (1.0-2.8); Alkaline Phosphatase 67 U/L (38-126); Aspartate Aminotransferase 31 IU/L (14-36); BUN Creatinine Ratio 22.5 (6-22); Bilirubin Total 0.8 mg/dL (0.2-1.3); Blood Urea Nitrogen 18 mg/dL (7-17); Calcium 9.9 mg/dL (8.4-10.2); Carbon Dioxide 27 mmol/L (22-32); Chloride 107 mmol/L (98-107); Estimated Glomerular Filt Rate > 60.0 mL/min (>60); Globulin 3.4 g/dL (1.7-4.1); Glucose 94 mg/dL (80-110); HEMOLYSIS < 15 (0-50); Lipase 148 U/L (23-300); Potassium 4.3 mmol/L (3.4-5.1); Sodium 144 mmol/L (137-145); Total Protein 7.6 g/dL (6.3-8.2)
== END ==
LOC: LAB 15:14
PROVIDERS: Family Provider Internal Medicine; PCP Internal Medicine; Visit Provider Internal Medicine
DX: R10.13 Epigastric pain (principal)
CPT/HCPCS: 80053; 83690; 85025

== ENCOUNTER → 2017-12-05 13:34 | Outpatient (CLI) | payer MEDICARE, MEDICAID, SELFPAY ==
--- NOTE | 2017-12-05 | DI.NM.S_ITS ---
PROCEDURE: NM TORSTEN PERF SPECT R&S PHARM Rest and pharmacological stress myocardial perfusion SPECT with gated imaging and ejection fraction RADIOPHARMACEUTICAL: 26.7 mCi Tc-99m tetrafosmin IV at rest and 25.7 mCi Tc-99m tetrafosmin IV at peak effect of pharmacological stress. [id number] was performed. INDICATIONS: CHEST PAIN TECHNIQUE: Radiopharmaceutical was injected at peak stress test, and also at rest. SPECT images were obtained. SPECT myocardial perfusion images were displayed in short axis, horizontal long axis, and vertical long axis views. Gated images were reviewed using TransferWise software. COMPARISON: None. CARDIAC STRESS: A pharmacologic stress test was performed under the supervision of an attending staff, using an infusion of lexiscan 0.4mg IV X1. Hemodynamic data: There is normal blood pressure and heart rate response to pharmacologic stress. Symptoms: The patient denied anginal chest pain. Aminophylline: none EKG: Resting ECG shows sinus rhythm with left axis deviation. No diagnostic changes of ischemia with lexiscan; no ectopy. FINDINGS: Raw data: There is good myocardial uptake of radiotracer. No significant motion artifacts. Left ventricle function: Gated images demonstrate normal left ventricular wall thickening. No segmental wall motion abnormalities. No transient ischemic dilation. Left ventricle resting end diastolic volume is 98 mL. Left ventricle stress ejection fraction is 80%; normal range is above 45%. Myocardial perfusion: There is normal distribution of activity in the right and left ventricular myocardium. No fixed or reversible perfusion defects. IMPRESSION: normal, low risk pharmaceutical nuclear stress test 1) Normal perfusion images, with no ischemia and no infarction. 2) Normal left ventricular size, wall motion, and systolic function (post stress EF 80%). 3) No ECG evidence of ischemia with lexiscan. 4) No angina during the study. 5) Compared to the prior nuclear stress test done 07/31/2012, no significant change. Dictated by: Eugene Sidhu MD on 12/06/2017 at 13:13 on 12/06/2017 Approved by: Eugene Sidhu MD on 12/06/2017 at 13:13
--- NOTE | 2017-12-05 14:50 | PM.TREADMILL ---
Cardiac Stress Test Report Referral & Results Date Patient Seen: 12/05/17 Requesting provider: Francoise Yanes Rest ECG: Unremarkable Procedure Note: After both written and verbal informed consent the patient had an IV started by the diagnostic imaging RN and then was hooked up to the treadmill monitoring system. The patient was then injected with the Charlene scan material. The Cardiolite was then immediately administered. Patient was monitored for additional 2-3 minutes The patient had a normal response to all infused materials. Impression: Normal response to materials Perfusion imaging will be reported separately Please note: Actual ECG tracings can be found in the PACS system.
== END ==
PROVIDERS: Family Provider Internal Medicine; PCP Internal Medicine; Visit Provider Internal Medicine
DX: R07.9 Chest pain, unspecified (principal)
CPT/HCPCS: 78452; 93016; 93017; 93018; A9502; J2785

== ENCOUNTER → 2017-12-08 16:16 | Outpatient (CLI) | payer MEDICARE, MEDICAID, SELFPAY ==
[2017-12-08 18:04] LABS: Adenovirus F 40/41 Not Detected (Not Detect); Astrovirus Not Detected (Not Detect); Campylobacter Not Detected (Not Detect); Clostridium difficile toxin AB Not Detected (Not Detect); Cryptosporidium Not Detected (Not Detect); Cyclospora cayetanensis Not Detected (Not Detect); Entamoeba histolytica Not Detected (Not Detect); Enteroaggregative E.coli Not Detected (Not Detect); Enteropathogenic E.coli Not Detected (Not Detect); Enterotoxigenic E.coli It/st Not Detected (Not Detect); Giardia lamblia Not Detected (Not Detect); Norovirus GI/GII Not Detected (Not Detect); Plesiomonsa shigelloides Not Detected (Not Detect); Rotavirus A Not Detected (Not Detect); Salmonella Not Detected (Not Detect); Shiga-like toxin-prod E.coli Not Detected (Not Detect); Shigella/Enteroinvasive E.coli Not Detected (Not Detect); Vibrio Not Detected (Not Detect); Vibrio cholerae Not Detected (Not Detect); Yersinia enterocolitica Not Detected (Not Detect)
== END ==
PROVIDERS: Family Provider Internal Medicine; PCP Internal Medicine; Visit Provider Internal Medicine
DX: R10.13 Epigastric pain (principal)
CPT/HCPCS: 87507

== ENCOUNTER → 2017-12-12 10:55 | Outpatient (CLI) | payer MEDICARE, MEDICAID, SELFPAY ==
--- NOTE | 2017-12-12 | DI.CT.S_ITS ---
PROCEDURE: CT ABDOMEN PELVIS W CON INDICATIONS: ABDOMINAL PAIN TECHNIQUE: After the administration of oral and intravenous contrast, 5 mm thick sections acquired from the diaphragms to the symphysis. 5 mm thick coronal and sagittal reformats were performed. For radiation dose reduction, the following was used: automated exposure control, adjustment of mA and/or kV according to patient size. COMPARISON: [facility], [place], ABDOMEN/PELVIS WITH CONTRAST, 09/27/2012, 13:28. FINDINGS: Image quality: Excellent. ABDOMEN: Lung bases: Lung bases are clear. Heart size is normal. Solid organs: Liver is normal in size and enhancement. Within the mid anterior liver, there is a water density cyst seen that measures 2.5 cm. Gallbladder has been removed. Biliary system is non-dilated for a post cholecystectomy patient. Pancreas enhances normally. Spleen is normal in size and enhancement. No adrenal nodules. Kidneys are normal in size and enhancement, without hydronephrosis. Peritoneum and bowel: There is thickening and irregularity seen involving the wall of the distal colon. Inflammatory changes are seen. No dilated loops of small bowel are seen. No free air or significant free fluid can be seen. Nodes and vessels: No retroperitoneal or mesenteric adenopathy. Aorta and inferior vena cava are normal in caliber. Miscellaneous: A mild periumbilical hernia is seen, containing fat. PELVIS: Genitourinary: Bladder wall thickness is normal. A 3.4 cm exophytic uterine fibroid is seen on the left. Miscellaneous: No inguinal hernias or adenopathy. Bones: No suspicious bony lesions. There is a stable remote compression deformity seen involving the right aspect of L2. No acute vertebral body compression fractures. IMPRESSION: Distal colitis, which is nonspecific. Please correlate with infectious inflammatory causes. Ischemic colitis is considered to be much less likely. No findings of perforation or abscess are seen. Incidental note is made of: Cholecystectomy Liver cyst Fat containing periumbilical hernia Exophytic left uterine fibroid. Remote L2 compression deformity on the right Dictated by: Anant Peña M.D. on 12/12/2017 at 13:24 Approved by: Anant Peña M.D. on 12/12/2017 at 13:29
== END ==
PROVIDERS: Family Provider Internal Medicine; PCP Internal Medicine; Visit Provider Internal Medicine
DX: R10.9 Unspecified abdominal pain (principal); K52.9 Noninfective gastroenteritis and colitis, unspecified
CPT/HCPCS: 74177; Q9967

== ENCOUNTER 2018-02-14 10:36 | Day surgery (SDC) | payer MEDICARE, MEDICAID, SELFPAY ==
--- NOTE | 2018-02-14 | PATH_ITS ---
[facility] Accession Number: [id number] . 01 Material submitted: . FUNDAL POLYPS . 02 Diagnosis: Fundal Polyps, Biopsies: Fragment of gastric oxyntic mucosa with features compatible with fundic gland polyp. Background gastric mucosa with chronic gastritis and features of reactive gastropathy. Negative for Helicobacter organisms by immunohistochemistry. Negative for intestinal metaplasia, dysplasia or malignancy. MRV/02/20/2018 . 02 Electronically signed: . Esau Martinez MD, PhD, Pathologist NPI- [id number] . 01 Gross description: . FUNDAL POLYPS: Received in formalin are multiple fragment(s) of hernandez, soft tissue measuring 0.7 x 0.6 x 0.2 cm in aggregate submitted entirely in 1 cassette(s) /CKI /CKI . 02 Microscopic: . An immunohistochemical stain was performed to evaluate for Helicobacter organisms and is negative. The control stain showed appropriate reactivity. . * This test was developed and its performance characteristics determined by [facility]. It has not been cleared or approved by the U.S. Food and Drug Administration. The FDA has determined that such clearance or approval is not necessary. This test is used for clinical purposes. It should not be regarded as investigational or for research. . 02 Pathologist provided ICD-10: K31.7, K29.70 . 02 CPT . 963490, Q11251 Performed at: 01 [facility] [address], [place], [place] [id number] MD Vlad Ferro MD Phone: [phone] Performed at: 02 [facility] [place] [address] [place], [place] [id number] MD Angelique Casas MD Phone: [phone]
--- NOTE | 2018-02-14 09:52 | PM.OP.ENDO ---
Operative Date/Time/Diagnoses Date of procedure: 02/14/18 Time of procedure: 09:53 Pre-op diagnosis: Screening examination. Last exam 16 years ago. Post-op diagnosis: same (Five polyps removed. Internal hemorrhoids.) Procedure & Clinicians Study performed: Colonoscopy with hot snare polypectomy, cold snare polypectomy and cold biopsy Same procedure as scheduled: Yes Indications: Screening Surgeon: Hugh Vasquez Procedure Notes SCOAP/Timeout: Performed Procedure in detail: The patient was placed in the left lateral decubitus position and underwent IV sedation directed by the surgeon consisting of fentanyl and Versed. Digital exam was remarkable for surgically absent prostate. The scope was inserted. There were 2 polyps at 15 cm from the anal verge which were biopsied and removed. The scope was then advanced through the rectum into the sigmoid, descending, transverse, and ascending colon. A stiffener was inserted in the scope reached the cecum.. The cecum was reached identified by the ileocecal valve the appendiceal opening. Two larger polyps both under cm and 1 small 1 were identified within the cecum. The largest of them will had a hot snare applied and was removed. The 2nd when the snare sliced right through the polyp and the 3rd 1 was removed with cold biopsy forcep. I cauterized the base of the larger two. The terminal ileum was normal in appearance. The scope was gradually brought out. No other Polyps were found. The scope ultimately was retroflexed in the rectum. The appearance was remarkable for internal hemorrhoids without ulceration. The scope was removed and the patient tolerated the procedure well Scope withdrawal time: Just over 7 min Sedation minutes: 29 Findings: internal hemorrhoids and polyp (Five removed) Specimen(s): none sent Complications: none Recommendations: Colonscopy in 5 years Follow up: as needed Disposition: PACU
[2018-02-14 10:53] VITALS: BP 162/82; PULSE 61; RESP 15; TEMP 36.2; O2SAT 98; BMI 27.0
[2018-02-14] MEDS: SODIUM CHLORIDE 0.9% 1,000 ML 200 ML IV (11:10)
--- NOTE | 2018-02-14 12:41 | PM.PREOP ---
Pre-operative Note Interval Note Pre-op Check: Yes History & Physical Reviewed by Physician and Yes Exam Performed Changes: No ASA Class (for procedural sedation): I
[2018-02-14] MEDS: fentaNYL 250 MCG/5 ML INJ IV (13:04)
[2018-02-14] MEDS: MIDAZOLAM 5 MG/5 ML VIAL IV (13:06)
--- NOTE | 2018-02-14 13:06 | PM.OP.ENDO ---
Operative Date/Time/Diagnoses Date of procedure: 02/14/18 Time of procedure: 13:07 Pre-op diagnosis: History H pylori. History of epigastric pain. Post-op diagnosis: same Procedure & Clinicians Study performed: EGD with cold biopsy Same procedure as scheduled: Yes Indications: Symptoms Surgeon: Hugh Vasquez Procedure Notes SCOAP/Timeout: Perform Procedure in detail: The patient had topical anesthetic applied to oropharynx. She was placed in left lateral decubitus position and underwent IV sedation directed by the surgeon consisting of fentanyl and Versed. A bite block was inserted and the scope was advanced through it into the esophagus. The cords were noted to be normal. The esophagus was unremarkable. GE junction was noted at 37 cm from the incisors. The stomach insufflated well. There were no lesions seen in the body, antrum or at the incisura. The pyloric channel was patent. There was no evidence of inflammation or edema.. The duodenum was unremarkable to the 4th part. The scope was brought back into the stomach and retroflexed. The proximal stomach had the appearance of a carpet of the small polyps suggesting a large number of gastric fundic polyps. Because of the patient's history of H pylori I took random biopsies throughout the stomach including the proximal part. The scope was then straightened and brought out through the esophagus again. No lesions were seen. The scope was removed and the patient tolerated the procedure well. Scope withdrawal time: Not applicable Sedation minutes: 13 Findings: other findings (Possible gastric fundic polyps) Specimen(s): other (Random gastric biopsies performed) Complications: none Recommendations: Other recommendation (Depends upon pathology) Follow up: as needed Disposition: same day surgery
[2018-02-14] MEDS: TETRACAINE/BENZOCAINE/BUTAMBEN (CETACAINE) BOTTLE 1 SPRAY TOP (13:07)
[2018-02-14] MEDS: LIDOCAINE 4% SOLN 50 ML 20 ML TOP (13:08)
[2018-02-14 13:16] VITALS: BP 170/86; PULSE 67; RESP 15; TEMP 36.6; O2SAT 98
[2018-02-14 13:32] VITALS: BP 150/83; PULSE 64; RESP 15; TEMP 36.3; O2SAT 95
[2018-02-14 13:49] VITALS: BP 161/90; PULSE 68; RESP 15; TEMP 36.4; O2SAT 96
--- NOTE | 2018-02-14 13:55 | SUR.PHASEII ---
pt observed to have no difficultly swallowing ice chips prior to discharge.
== END 2018-02-14 13:55 | disposition home or self-care (01) ==
PROVIDERS: Family Provider Internal Medicine; PCP Internal Medicine; Visit Provider Specialist
PROC: 0DJ08ZZ Inspection of Upper Intestinal Tract, Via Natural or Artificial Opening Endoscopic (ICD-10-PCS; CPT 43235; principal; 2018-02-14 11:45)
DX: K29.70 Gastritis, unspecified, without bleeding (principal); Z87.19 Personal history of other diseases of the digestive system; M06.9 Rheumatoid arthritis, unspecified; K31.7 Polyp of stomach and duodenum
CPT/HCPCS: 43239; 88305; 88342; 99152; J2250; J3010

== ENCOUNTER → 2018-02-28 15:45 | Outpatient (CLI) | payer MEDICARE, MEDICAID, SELFPAY ==
[2018-02-28 16:58] LABS: HEMOLYSIS < 15 (0-50); Potassium 4.9 mmol/L (3.4-5.1)
[2018-02-28 16:59] LABS: Blood Urea Nitrogen 21 mg/dL (7-17); Carbon Dioxide 28 mmol/L (22-32); Chloride 105 mmol/L (98-107); Cholesterol 171 mg/dL (140-199); Estimated Glomerular Filt Rate 53.8 mL/min (>60); Glucose 72 mg/dL (80-110); HDL Cholesterol 63 mg/dL (40-60); LDL Cholesterol Calculated 83 mg/dL (<100); Sodium 144 mmol/L (137-145); Triglycerides 126 mg/dL (35-150)
[2018-02-28 17:30] LABS: TSH w/ Reflex to FT4 0.96 uIU/mL (0.47-4.68)
== END ==
PROVIDERS: Family Provider Internal Medicine; PCP Internal Medicine; Visit Provider Internal Medicine
DX: I10 Essential (primary) hypertension (principal); E03.9 Hypothyroidism, unspecified; Z00.00 Encounter for general adult medical examination without abnormal findings
CPT/HCPCS: 36415; 80048; 80061; 84443

== ENCOUNTER → 2018-07-21 16:45 | Outpatient (CLI) | payer MEDICARE, MEDICAID, SELFPAY ==
[2018-07-21 18:44] LABS: HEMOLYSIS < 15 (0-50); Iron 126 ug/dL (37-170)
[2018-07-21 18:54] LABS: Percent Iron Saturation 39 % (15-50); Total Iron Binding Capacity 327 ug/dL (265-497); Transferrin 263 mg/dL (206-381)
[2018-07-21 19:02] LABS: Free T4, Direct Thyroxine 1.52 ng/dL (0.78-2.19)
[2018-07-21 19:03] LABS: Vitamin D 25 Hydroxy (D3) 53.4 ng/mL (30.0-100.0)
[2018-07-21 19:21] LABS: Ferritin 48.8 ng/mL (11.1-264)
[2018-07-26 14:17] LABS: Triiodothyronine T3 Total 87 ng/dL (76-181)
== END ==
PROVIDERS: PCP Internal Medicine; Visit Provider Internal Medicine
DX: L65.9 Nonscarring hair loss, unspecified (principal); E03.9 Hypothyroidism, unspecified
CPT/HCPCS: 36415; 82306; 82728; 83540; 83550; 84439; 84480

== ENCOUNTER → 2018-09-02 12:37 | Outpatient (CLI) | payer MEDICARE, MEDICAID, SELFPAY ==
--- NOTE | 2018-09-02 12:40 | DI.MRI.S_ITS ---
PROCEDURE: MR CERVICAL SPINE WO CON INDICATIONS: INCONTINENCE OF URINE TECHNIQUE: Noncontrast sagittal T1 spin echo and T2 fast spin echo, sagittal STIR, foraminal oblique sagittal T2 fast spin echo, and axial gradient echo or T2 fast spin echo through the cervical spine. COMPARISON: [facility], CERVICAL SPINE 2 OR 3 VIEWS, 04/11/2013, 13:31. FINDINGS: Image quality: Excellent. Alignment and Curvature: There is normal bony alignment. Bone Marrow: Marrow demonstrates normal overall signal. Spinal Cord: Visualized spinal cord has normal size and signal. No cerebellar tonsillar herniation. Paraspinous Soft Tissues: No paravertebral masses. Prevertebral soft tissues are normal in thickness. C2-C3: Normal appearance. C3-C4: Normal appearance. C4-C5: Normal appearance for a slight degree of disc desiccation and facet osteoarthritis that is mild to moderate on the right but absent on the left with potential for asymmetric C5 right-sided nerve root impingement. C5-C6: Moderate to moderately severe degenerative disc disease at this level with a broad-based transverse disc bulge, and facet osteoarthritis is symmetric, with a mild to moderate degree of foraminal stenosis. There is a mild anterior spinal stenosis as a result, effacing CSF from the anterior thecal sac at this level. C6-C7: Moderate to moderately severe degenerative disc disease with disc height reduction, disc desiccation and a broad-based posterior transverse disc bulge which effaces CSF from the anterior thecal sac to a slightly greater degree on the left than the right. Facet osteoarthritis results in mild to moderate left and mild right foraminal stenosis with potential for asymmetric left greater than right nerve root impingement on C7. C7-T1: Normal appearance except for a slight posterior disc bulge which does not significantly efface CSF from the anterior thecal sac. IMPRESSION: Mild to moderate degenerative disc disease most prominent at C5-6 and C6-7 with foraminal stenosis that is relatively mild overall, both symmetric and asymmetric as discussed in detail by level in the body of the report above. No disc herniation or recent trauma is found. Source of urinary incontinence at the level of the cervical spine is not present. Dictated by: Teodoro Oshea M.D. on 09/04/2018 at 12:58 Approved by: Teodoro Oshea M.D. on 09/04/2018 at 13:17
== END ==
PROVIDERS: PCP Internal Medicine; Visit Provider Internal Medicine
DX: N39.41 Urge incontinence (principal); M50.322 Other cervical disc degeneration at C5-C6 level; M48.02 Spinal stenosis, cervical region
CPT/HCPCS: 72141

== ENCOUNTER → 2018-10-19 14:07 | Outpatient (CLI) | payer MEDICARE, MEDICAID, SELFPAY ==
[2018-10-19 15:53] LABS: Blood Urea Nitrogen 32 mg/dL (7-17); Carbon Dioxide 30 mmol/L (22-32); Chloride 103 mmol/L (98-107); Estimated Glomerular Filt Rate 53.8 mL/min (>60); Glucose 76 mg/dL (80-110); HEMOLYSIS < 15 (0-50); Potassium 4.2 mmol/L (3.4-5.1); Sodium 142 mmol/L (137-145)
== END ==
PROVIDERS: PCP Internal Medicine; Visit Provider Internal Medicine
DX: I10 Essential (primary) hypertension (principal)
CPT/HCPCS: 36415; 80048

== ENCOUNTER → 2018-12-05 16:03 | Outpatient (CLI) | payer MEDICARE, MEDICAID, SELFPAY ==
[2018-12-05 17:15] LABS: BUN Creatinine Ratio 31.1 (6-22); Blood Urea Nitrogen 28 mg/dL (7-17); Calcium 9.8 mg/dL (8.4-10.2); Carbon Dioxide 27 mmol/L (22-32); Chloride 103 mmol/L (98-107); Estimated Glomerular Filt Rate > 60.0 mL/min (>60); Glucose 81 mg/dL (80-110); HEMOLYSIS < 15 (0-50); Potassium 4.3 mmol/L (3.4-5.1); Sodium 141 mmol/L (137-145)
== END ==
PROVIDERS: PCP Internal Medicine; Visit Provider Internal Medicine
DX: I10 Essential (primary) hypertension (principal)
CPT/HCPCS: 36415; 80048

== ENCOUNTER → 2019-01-12 12:43 | Outpatient (CLI) | payer MEDICARE, MEDICAID, SELFPAY ==
--- NOTE | 2019-01-12 | DI.MG.S_ITS ---
BILATERAL DIGITAL SCREENING MAMMOGRAM 3D/2D WITH CAD: 01/12/2019 CLINICAL: Routine screening. Comparison is made to exams dated: 08/24/2017 mammogram, 01/12/2016 mammogram, and 09/20/2014 mammogram - [facility]. The tissue of both breasts is heterogeneously dense. This may lower the sensitivity of mammography. Current study was also evaluated with a Computer Aided Detection (CAD) system. No significant masses, calcifications, or other findings are seen in either breast. There has been no significant interval change. IMPRESSION: NEGATIVE There is no mammographic evidence of malignancy. A 1 year screening mammogram is recommended. This exam was interpreted at Station ID: [id number]. NOTE: For mammograms, a report in lay terms will be sent to the patient. Approximately 15% of breast malignancies will not be visualized mammographically. In the management of a palpable breast mass, a negative mammogram must not discourage biopsy of a clinically suspicious lesion. Electronically Signed By: Brielle james/willow:01/12/2019 13:34:38 letter sent: Normal Exam ACR BI-RADS Category 1: Negative [id number]
== END ==
PROVIDERS: PCP Internal Medicine; Visit Provider Internal Medicine
DX: Z12.31 Encounter for screening mammogram for malignant neoplasm of breast (principal)
CPT/HCPCS: 77063; 77067

== ENCOUNTER 2019-02-07 07:37 | Day surgery (SDC) | payer MEDICARE, MEDICAID, SELFPAY ==
--- NOTE | 2019-02-02 18:38 | PM.PREOP ---
Pre-operative Note Interval Note History & Physical reviewed/Exam performed by Physician: Yes Changes to H&P: No
--- NOTE | 2019-02-07 07:40 | P.OP_ITS ---
Operative Date/Time/Diagnoses Date of procedure: 02/07/19 Time of procedure: 08:45 Procedure & Clinicians Procedure: Preoperative diagnoses: 1. Left complex surgery with use of capsular dye. 2. Mature or advanced nuclear sclerotic and cortical cataract with poor visibility of the anterior capsule increasing surgical risks of complications. 3. High risk due to ongoing intravitreal injections and rheumatoid arthritis. 4. Rheumatoid arthritis Enbrel dependent. 5. 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 6. Recent intravitreal Avastin left. 7. Arrhythmia Postoperative diagnoses: 1. Left complex surgery with use of capsular dye, 2. Placement of a posterior chamber intraocular lens implant. Surgeon: Ann Pena MD Complications: none Specimen: None Implant: ZCBOO+21.5 Blood loss: None Anesthesia: Retrobulbar with monitored standby. Description of procedure: Dictated by: Ann Pena MD Copy to: [facility] Post operative diagnoses: 1. Left complex cataract removed with use of capsular dye with placement of a posterior chamber intraocular lens. 2. Rheumatoid arthritis with severe joint deformity on Enbrel. 3. Arrhythmia Procedure: Phacoemulsification with posterior chamber intraocular lens implant IOL:ZCBOO +21.5 Surgeon: Ann Pena MD Blood loss: None Anesthesia: Retrobulbar with monitored standby Description of procedure: Patient has presented with decreased vision due to cataract which is affecting activities of daily living. The patient wants surgery to improve vision. She has higher risk due to central retinal vein occlusion with macular edema stabilized with intravitreal Avastin prior to surgery as well as rheumatoid arthritis with higher risk of corneal melt. She has severe joint deformities. The patient was taken to the operating room and given IV sedation. A retrobulbar block consisting of 6 cc of 2% xylocaine without epinephrine mixed half and half with 0.5% Marcaine with 1 cc of hyaluronidase added is placed between the medial and lateral 1/3 of the inferior orbital rim. Lid akinesia is obtain with 1% xylocaine with epinephrine infiltrated along the lid margin. The eye is manually massaged for 30 sec, prepped using Betadine solution, and draped in the usual sterile fashion. Temporal approach was made, a 1 mm side-port incision was performed 90 degrees from the planned corneal wound. Phenylephrine 1.5% mixed with 1% xylocaine 0.2 cc was placed into the anterior chamber. [An air bubble was placed and Visudyne dye was placed to improve visibility of the anterior capsule. The dye was irrigated out to reduce bubbles.] Viscoat followed by Healon was then placed. A 2.6 mm clear incision with a 2.6 mm blade was placed. A 360 degree capsulorrhexis style capsulotomy was then performed with a cystitome needle on a Healon. Hydrodelineation and hydrodissection were performed. The phacoemulsification unit is introduced, and sculpting used to groove the central lens. It is then removed in chopping mode. Epi nucleus is removed with epinuclear mode and irrigation aspiration was used to remove the peripheral cortex. Due to slight zonular weakness a small amount of subincisional cortex was left for after intra-ocular lens insertion when it was then totally removed. The posterior capsule was polished. The intraocular lens is selected, inspected, power confirmed, and placed in the posterior chamber. The zonules were slightly loose inferiorly but held during the procedure. The pupil was constricted with Miostat. The wound was stromally hydrated and tested for leaks, there was none and was left sutureless. Vigamox 0.1 cc was placed into the anterior chamber. Kenalog 0.2 cc was placed in the superior subconjunctival space. A drop of antibiotic and was placed and the eye was patched and sh ielded. The patient was stable and returned to the recovery room in excellent condition. Dictated by: Ann Pena MD Copy to: [facility]
[2019-02-07 08:00] VITALS: BP 143/77; PULSE 49; RESP 18; TEMP 36.6; O2SAT 98
[2019-02-07] MEDS: PROPARACAINE 0.5% OPHTH SOL 2 DROPS EYE-OP (08:08)
[2019-02-07] MEDS: CATARACT EYE COMPOUND (10 DROPS/SYRINGE) 3 DROPS EYE-OP (08:12)
[2019-02-07 08:22] VITALS: BMI 27.8
[2019-02-07] MEDS: HYALURONATE SODIUM 10 MG/ML SYRINGE INJ (09:11)
[2019-02-07] MEDS: ERYTHROMYCIN OPHTH 1 GM OINT 1 APPLIC EYE-LEFT (09:11)
[2019-02-07] MEDS: MOXIFLOXACIN INJ 5 MG/ML VIAL EYE-OP (09:12)
[2019-02-07] MEDS: TRIAMCINOLONE 50 MG/5 ML VIAL INJ (09:12)
[2019-02-07] MEDS: TRYPAN BLUE 0.5 ML SYRINGE INJ (09:12)
[2019-02-07] MEDS: PHENYLEPHRINE/LIDOCAINE VIAL (OR) 0.2 ML EYE-OP (09:12)
[2019-02-07] MEDS: LIDOCAINE 2% 4 ML, BUPIVACAINE 0.5% (PF) 4 ML, HYALURONIDASE 150 UNIT INJ (09:13)
[2019-02-07] MEDS: CHONDROIDTIN/SOD HYALURONATE 1.05 ML SYRINGE INTRAOCULA (09:14)
[2019-02-07] MEDS: BALANCED SALT IRRIG SOLN NO.2 500 ML, EPINEPHrine 1 MG IRR (09:17)
[2019-02-07 09:40] VITALS: BP 138/82; PULSE 55; RESP 15; TEMP 36.1; O2SAT 99
--- NOTE | 2019-02-07 09:56 | SUR.PHASEII ---
Post procedure arrival note: patient arrived to Phase II. AA/O x 3. VSS, O2 Sat WNL on RA. No complaints of pain. Tolerating po without nausea. Discharge instructions reviewed with good understanding. Stable for discharge to home.
== END 2019-02-07 10:00 | disposition home or self-care (01) ==
LOC: OR 07:39
PROVIDERS: PCP Internal Medicine; Visit Provider Ophthalmology
PROC: (CPT 66982; principal; 2019-02-07 08:45)
DX: H25.812 Combined forms of age-related cataract, left eye (principal); H35.81 Retinal edema; H34.8122 Central retinal vein occlusion, left eye, stable; M06.9 Rheumatoid arthritis, unspecified
CPT/HCPCS: 66982; J0171; J2704; J3301; J3470

== ENCOUNTER → 2019-03-08 11:34 | Outpatient (CLI) | payer MEDICARE, MEDICAID, SELFPAY ==
[2019-03-08 11:58] LABS: Add Manual Diff / Slide Review NO; Basophils Absolute Auto 100 /uL (0-100); Eosinophils Absolute Auto 400 /uL (0-450); Eosinophils Percent Auto 6.8 % (2-4); Hematocrit 39.2 % (36-46); Hemoglobin 13.3 g/dL (12.0-16.0); Lymphocytes Absolute Auto 1700 /uL (1100-4500); Lymphocytes Percent Auto 27.3 % (25-40); Mean Corpuscular HGB Conc 33.8 % (30-36); Mean Corpuscular Hemoglobin 31.6 PG (26-34); Mean Corpuscular Volume 93.4 fL (80-100); Monocytes Absolute Auto 800 /uL (0-900); Monocytes Percent Auto 12.4 % (3-14); Neutrophils Absolute Auto 3200 /uL (1500-7000); Neutrophils Percent Auto 52.5 % (50-75); Platelet Count 292 X10^3/uL (150-400); Red Blood Cell Count 4.19 X10^6/uL (4.0-5.2); Red Cell Distribution Width 13.2 % (11.6-14.8); White Blood Cell Count 6.1 X10^3/uL (4.5-11.0)
[2019-03-08 12:25] LABS: Erythrocyte Sedimentation Rate 33 MM/HR (0-20)
[2019-03-08 12:35] LABS: Alanine Aminotransferase 16 IU/L (<35); Albumin 4.5 g/dL (3.5-5.0); Albumin Globulin Ratio 1.3 (1.0-2.8); Alkaline Phosphatase 68 U/L (38-126); Aspartate Aminotransferase 30 IU/L (14-36); BUN Creatinine Ratio 28.9 (6-22); Bilirubin Total 0.8 mg/dL (0.2-1.3); Blood Urea Nitrogen 26 mg/dL (7-17); Calcium 10.3 mg/dL (8.4-10.2); Carbon Dioxide 30 mmol/L (22-32); Chloride 103 mmol/L (98-107); Estimated Glomerular Filt Rate > 60.0 mL/min (>60); Globulin 3.6 g/dL (1.7-4.1); Glucose 83 mg/dL (80-110); HEMOLYSIS < 15 (0-50); Sodium 143 mmol/L (137-145); Total Protein 8.1 g/dL (6.3-8.2)
[2019-03-08 12:38] LABS: C-Reactive Protein Quant < 0.5 mg/dL (<1.0)
== END ==
PROVIDERS: PCP Internal Medicine; Visit Provider Nurse Practitioner
DX: M05.79 Rheumatoid arthritis with rheumatoid factor of multiple sites without organ or systems involvement (principal)
CPT/HCPCS: 36415; 80053; 85025; 85651; 86140

== ENCOUNTER → 2019-04-03 13:31 | Outpatient (CLI) | payer MEDICARE, MEDICAID, SELFPAY ==
--- NOTE | 2019-04-03 | DI.ECHO.S_ITS ---
[facility] +---------+ [facility] +---------+ : : [address] : : : [place], [place] : : : : [phone] : : : : Phone: [phone]+ Echocardiogram Report + + :Name: FLORENTIN BUCK Study Date: 04/03/2019 Height: 62 in : :[facility] Weight: 152 lb : : Gender: Female BSA: 1.7 m2 : :: 1940 Age: 79 yrs BP: 152/84 mmHg: :Reason For Study: Hypertension : : Performed By: Reginald Patel : :Referring: TYRONE MAE L : + + Interpretation Summary The left ventricle is normal in size. The ejection fraction is estimated to be 55-60%. There is septal wall hypokinesis. Septal motion is consistent with conduction abnormality. Compared to the prior exam, the septal wall motion abnormality has increased in severity. The right ventricle is normal in size and function. There is mild to moderate aortic regurgitation. Compared to the prior echo study, there has been an increase in the severity of aortic regurgitation. The ascending aorta is mildly enlarged. Procedure: A two-dimensional transthoracic echocardiogram with color flow and Doppler was performed. The study quality was technically adequate. Prior echo performed on 03/12/09. The patient was in normal sinus rhythm during the exam. The patient had a bundle branch block rhythm during the exam. Left Ventricle: The left ventricle is normal in size. Left ventricular wall thickness is mildly increased. There is no thrombus. The ejection fraction is estimated to be 55-60%. There is septal wall hypokinesis. Compared to the prior exam, the septal wall motion abnormality has increased in severity. Septal motion is consistent with conduction abnormality. MV E/A: 0.67 Med [place] E' Francis: 5.3 cm/sec E/E' med: 15.1. Right Ventricle: The right ventricle is normal in size and function. Atria: The left atrium is severely dilated. The left atrium has significantly increased in size since the prior echo exam. Right atrial size is normal. The interatrial septum is intact with no evidence for an atrial septal defect. Mitral Valve: The mitral valve leaflets appear mildly thickened, but open well. The mitral valve leaflets are mildly calcified. There is mild mitral annular calcification. Redundant elongated chordae are noted. There is trace mitral regurgitation. Aortic Valve: The aortic valve is trileaflet. The aortic valve opens well. The aortic valve is mildly calcified. There is no aortic valve stenosis. There is mild to moderate aortic regurgitation. Compared to the prior echo study, there has been an increase in the severity of aortic regurgitation. Tricuspid Valve: The tricuspid valve is normal in structure and function. There is trace tricuspid regurgitation. Pulmonary artery pressures cannot be estimated because of the lack of a measurable TR jet velocity. Pulmonic Valve: The pulmonic valve is not well visualized. There is trace pulmonic regurgitation. Great Vessels: The aortic root is normal size. The ascending aorta is mildly enlarged. The pulmonary artery is normal size. The IVC is of normal diameter and collapses less than 50% with a sniff. This suggests a right atrial pressure of 8 mm Hg. Pericardium/ Pleura There is a trivial pericardial effusion noted. There are no echocardiographic indications of cardiac tamponade. There is no pleural effusion. MMode/2D Measurements & Calculations LVIDd: 4.2 cm LVOT diam: 2.0 cm LVIDs: 2.8 cm Ao root diam: 3.1 cm FS: 33.9 % Aortic Jxn: 2.7 cm EPSS: 0.70 cm asc Aorta Diam: 3.7 cm IVSd: 1.0 cm LVPWd: 1.1 cm LV astorga. diameter/BSA (cm/m^2): 2.5 LV sys. diameter/BSA (cm/m^2): 1.6 LA A2 area: 26.0 cm2 RA long axis: 5.6 cm LA A4 area: 22.6 cm2 RA area: 14.6 cm2 LA length (vol): 5.3 cm RA vol: 32.0 ml LA vol: 93.9 ml RA : 18.8 ml/m2 LA vol index: 55.2 ml/m2 TAPSE: 2.0 cm Doppler Measurements & Calculations Ao V2 max: 116.8 cm/sec LVOT Max Francis: 117.1 cm/sec Ao V2 mean: 88.4 cm/sec LV V1 max P.5 mmHg Ao max P.5 mmHg LV V1 VTI: 28.7 cm Ao mean P.4 mmHg UMESH(I,D): 3.3 cm2 Ao V2 VTI: 27.4 cm UMESH(V,D): 3.2 cm2 sev ratio: 1.0 UMESH indexed to BSA (cm^2/m^2): 1.9 AI P1/2t: 558.9 msec AI dec slope: 223.3 cm/sec2 MV E max francis: 79.4 cm/sec SV(LVOT): 90.5 ml MV A max francis: 119.0 cm/sec MV E/A: 0.67 Med [place] E' Francis: 5.3 cm/sec E/E' med: 15.1 Lat [place] E' Francis: 6.6 cm/sec E/E' lat: 12.0 E/e' average: 13.5 MV dec time: 0.23 sec Reading Physician:03:57 PM
== END ==
PROVIDERS: PCP Internal Medicine; Visit Provider Internal Medicine
DX: I35.1 Nonrheumatic aortic (valve) insufficiency (principal); I77.89 Other specified disorders of arteries and arterioles; I10 Essential (primary) hypertension
CPT/HCPCS: 93306

== ENCOUNTER → 2019-08-30 15:56 | Outpatient (CLI) | payer MEDICARE, MEDICAID, SELFPAY ==
[2019-08-30 16:44] LABS: Add Manual Diff / Slide Review NO; Basophils Absolute Auto 100 /uL (0-100); Basophils Percent Auto 1.2 % (0-2); Eosinophils Absolute Auto 200 /uL (0-450); Eosinophils Percent Auto 3.5 % (2-4); Hematocrit 37.8 % (36-46); Hemoglobin 12.8 g/dL (12.0-16.0); Lymphocytes Absolute Auto 1100 /uL (1100-4500); Lymphocytes Percent Auto 16.6 % (25-40); Mean Corpuscular HGB Conc 33.8 % (30-36); Mean Corpuscular Hemoglobin 31.5 PG (26-34); Mean Corpuscular Volume 93.2 fL (80-100); Monocytes Absolute Auto 900 /uL (0-900); Monocytes Percent Auto 12.8 % (3-14); Neutrophils Absolute Auto 4400 /uL (1500-7000); Neutrophils Percent Auto 65.9 % (50-75); Platelet Count 254 X10^3/uL (150-400); Red Blood Cell Count 4.06 X10^6/uL (4.0-5.2); Red Cell Distribution Width 13.6 % (11.6-14.8); White Blood Cell Count 6.7 X10^3/uL (4.5-11.0)
[2019-08-30 17:00] LABS: BUN Creatinine Ratio 24.8 (6-22); Blood Urea Nitrogen 27 mg/dL (7-17); Calcium 10.1 mg/dL (8.4-10.2); Carbon Dioxide 25 mmol/L (22-32); Chloride 105 mmol/L (98-107); Cholesterol 183 mg/dL (140-199); Estimated Glomerular Filt Rate 48.5 mL/min (>60); Glucose 93 mg/dL (80-110); HDL Cholesterol 55 mg/dL (40-60); HEMOLYSIS < 15 (0-50); LDL Cholesterol Calculated 101 mg/dL (<100); Sodium 140 mmol/L (137-145); Triglycerides 134 mg/dL (35-150)
== END ==
PROVIDERS: PCP Internal Medicine; Referring Provider Internal Medicine Cardiovascular Disease; Visit Provider Internal Medicine Cardiovascular Disease
DX: I10 Essential (primary) hypertension (principal)
CPT/HCPCS: 36415; 80048; 80061; 85025

== ENCOUNTER → 2020-04-23 14:07 | Outpatient (CLI) | payer MEDICARE, MEDICAID, SELFPAY ==
[2020-04-23] MEDS: COVID-19 VACC #1, MRNA(MOD) 100 MCG/0.5 ML VIAL IM (14:16)
== END ==
PROVIDERS: PCP Internal Medicine; Visit Provider Internal Medicine
DX: Z23 Encounter for immunization (principal)
CPT/HCPCS: 0011A; 91301

== ENCOUNTER → 2020-05-21 14:12 | Outpatient (CLI) | payer MEDICARE, MEDICAID, SELFPAY ==
[2020-05-21] MEDS: COVID-19 VACC #2, MRNA(MOD) 100 MCG/0.5 ML VIAL IM (14:19)
== END ==
PROVIDERS: PCP Internal Medicine; Visit Provider Internal Medicine
DX: Z23 Encounter for immunization (principal)
CPT/HCPCS: 0012A; 91301

== ENCOUNTER → 2020-06-11 19:36 | Outpatient (ROUT) | payer MEDICARE, MEDICAID, SELFPAY ==
[2020-06-11 20:01] LABS: Alanine Aminotransferase 20 IU/L (<35); Albumin Globulin Ratio 1.3 (1.0-2.8); Alkaline Phosphatase 69 U/L (38-126); Aspartate Aminotransferase 29 IU/L (14-36); BUN Creatinine Ratio 27.1 (6-22); Bilirubin Total 0.5 mg/dL (0.2-1.3); Blood Urea Nitrogen 26 mg/dL (7-17); Calcium 9.9 mg/dL (8.4-10.2); Carbon Dioxide 31 mmol/L (22-32); Chloride 107 mmol/L (98-107); Cholesterol 168 mg/dL (140-199); Estimated Glomerular Filt Rate 56.1 mL/min (>60); Globulin 3.2 g/dL (1.7-4.1); Glucose 90 mg/dL (80-110); HDL Cholesterol 56 mg/dL (40-60); HEMOLYSIS < 15 (0-50); LDL Cholesterol Calculated 91 mg/dL (<100); Potassium 4.1 mmol/L (3.4-5.1); Sodium 141 mmol/L (137-145); Total Protein 7.2 g/dL (6.3-8.2); Triglycerides 105 mg/dL (35-150)
[2020-06-11 20:31] LABS: TSH w/ Reflex to FT4 2.14 uIU/mL (0.47-4.68)
== END ==
PROVIDERS: PCP Internal Medicine; Visit Provider Internal Medicine
DX: E03.9 Hypothyroidism, unspecified (principal); I10 Essential (primary) hypertension; E78.2 Mixed hyperlipidemia
CPT/HCPCS: 80053; 80061; 84443

== ENCOUNTER → 2020-07-03 14:55 | Outpatient (CLI) | payer MEDICARE, MEDICAID, SELFPAY ==
--- NOTE | 2020-07-03 14:57 | DI.MG.S_ITS ---
BILATERAL DIGITAL SCREENING MAMMOGRAM 3D/2D WITH CAD: 07/03/2020 CLINICAL: Routine screening. Comparison is made to exams dated: 01/12/2019 mammogram, 08/24/2017 mammogram, and 01/12/2016 mammogram - [facility]. The tissue of both breasts is heterogeneously dense. This may lower the sensitivity of mammography. Current study was also evaluated with a Computer Aided Detection (CAD) system. No significant masses, calcifications, or other findings are seen in either breast. There has been no significant interval change. IMPRESSION: NEGATIVE There is no mammographic evidence of malignancy. A 1 year screening mammogram is recommended. This exam was interpreted at Station ID: [id number]. NOTE: For mammograms, a report in lay terms will be sent to the patient. Approximately 15% of breast malignancies will not be visualized mammographically. In the management of a palpable breast mass, a negative mammogram must not discourage biopsy of a clinically suspicious lesion. Electronically Signed By: Vlad frederick/willow:07/03/2020 15:43:52 letter sent: Normal Exam ACR BI-RADS Category 1: Negative [id number]
== END ==
PROVIDERS: PCP Internal Medicine; Referring Provider Internal Medicine; Visit Provider Internal Medicine
DX: Z12.31 Encounter for screening mammogram for malignant neoplasm of breast (principal)
CPT/HCPCS: 77063; 77067

== ENCOUNTER → 2020-07-11 14:02 | Outpatient (CLI) | payer MEDICARE, MEDICAID, SELFPAY | PROVIDERS: PCP Internal Medicine; Referring Provider Internal Medicine; Visit Provider Internal Medicine | DX: M81.0 Age-related osteoporosis without current pathological fracture (principal); Z78.0 Asymptomatic menopausal state; M06.9 Rheumatoid arthritis, unspecified; E07.9 Disorder of thyroid, unspecified; E21.3 Hyperparathyroidism, unspecified; Z82.62 Family history of osteoporosis | CPT/HCPCS: 77080 ==

== ENCOUNTER → 2020-08-01 14:56 | Outpatient (CLI) | payer MEDICARE, MEDICAID, SELFPAY ==
[2020-08-01 15:35] LABS: Add Manual Diff / Slide Review NO; Basophils Absolute Auto 100 /uL (0-100); Basophils Percent Auto 1.1 % (0-2); Eosinophils Absolute Auto 300 /uL (0-450); Hematocrit 37.5 % (36-46); Hemoglobin 12.6 g/dL (12.0-16.0); Lymphocytes Absolute Auto 1300 /uL (1100-4500); Lymphocytes Percent Auto 22.8 % (25-40); Mean Corpuscular HGB Conc 33.7 % (30-36); Mean Corpuscular Hemoglobin 31.2 PG (26-34); Mean Corpuscular Volume 92.7 fL (80-100); Monocytes Absolute Auto 600 /uL (0-900); Monocytes Percent Auto 10.3 % (3-14); Neutrophils Absolute Auto 3600 /uL (1500-7000); Neutrophils Percent Auto 60.8 % (50-75); Platelet Count 252 X10^3/uL (150-400); Red Blood Cell Count 4.05 X10^6/uL (4.0-5.2); White Blood Cell Count 5.9 X10^3/uL (4.5-11.0)
[2020-08-01 15:48] LABS: Erythrocyte Sedimentation Rate 24 MM/HR (0-20)
[2020-08-01 15:52] LABS: Alanine Aminotransferase 15 IU/L (<35); Alkaline Phosphatase 58 U/L (38-126); Aspartate Aminotransferase 29 IU/L (14-36); BUN Creatinine Ratio 25.2 (6-22); Bilirubin Total 0.6 mg/dL (0.2-1.3); Blood Urea Nitrogen 30 mg/dL (7-17); C-Reactive Protein Quant < 0.5 mg/dL (<1.0); Calcium 9.8 mg/dL (8.4-10.2); Carbon Dioxide 28 mmol/L (22-32); Chloride 106 mmol/L (98-107); Estimated Glomerular Filt Rate 43.8 mL/min (>60); Globulin 3.9 g/dL (1.7-4.1); Glucose 93 mg/dL (80-110); HEMOLYSIS < 15 (0-50); Potassium 4.1 mmol/L (3.4-5.1); Sodium 141 mmol/L (137-145); Total Protein 7.9 g/dL (6.3-8.2)
== END ==
PROVIDERS: PCP Internal Medicine; Referring Provider Physician Assistant Medical; Visit Provider Physician Assistant Medical
DX: M05.79 Rheumatoid arthritis with rheumatoid factor of multiple sites without organ or systems involvement (principal)
CPT/HCPCS: 36415; 80053; 85025; 85651; 86140

== ENCOUNTER → 2020-08-13 15:41 | Outpatient (CLI) | payer MEDICARE, MEDICAID, SELFPAY ==
[2020-08-13 18:20] LABS: Vitamin D 25 Hydroxy (D3) 42.7 ng/mL (30.0-100.0)
== END ==
PROVIDERS: PCP Internal Medicine; Referring Provider Internal Medicine; Visit Provider Internal Medicine
DX: M81.0 Age-related osteoporosis without current pathological fracture (principal)
CPT/HCPCS: 36415; 82306

== ENCOUNTER → 2020-11-24 12:22 | Outpatient (CLI) | payer MEDICARE, MEDICAID, SELFPAY ==
--- NOTE | 2020-11-24 | DI.ECHO.S_ITS ---
[facility] +---------+ [facility] +---------+ : : [address] : : [place] : : : : [phone] : : : : Phone: [phone]---------+ Echocardiogram Report + + :Name: FLORENTIN BUCK Study Date: 11/24/2020 Height: 62 in : :[facility] ReadingLocation: Weight: 158 lb : : Gender: Female BSA: 1.7 m2 : :: 1940 Age: 80 yrs BP: 159/97 mmHg: :Reason For Study: Aortic, Ascending Aneurysm : :Ordering Physician: Katelynn : :Thomas Sihdu Performed By: Elvis Guardado : :Referring: KATELYNN SIDHU : + + Interpretation Summary 1) Normal left ventricular thickness, size, and systolic function (EF 55-60%). 2) Normal right ventricular size with low normal function. 3) Mild aortic regurgitation present. 4) The ascending aorta is mildly enlarged at 4.1cm. 5) Trace/physiological pericardial effusion present. 6) Hypertension present during the study (BP 159/97mmHg). 7) Compared to the Echo done 04/03/2019, no significant change. Procedure: A two-dimensional transthoracic echocardiogram with color flow and Doppler was performed. The study quality was technically adequate. Comparison is made with the echocardiogram of 04/03/2019. The patient was in sinus rhythm with heart rates between 50-58 bpm during the exam. Left Ventricle: The left ventricle is normal in size and wall thickness. Left ventricular systolic function is normal. The ejection fraction is estimated to be 55-60%. There are no focal wall motion abnormalities. Septal motion is consistent with conduction abnormality. Diastolic function could not be accurately assessed due to unobtainable data. Right Ventricle: The right ventricle is normal size. Right ventricular systolic function is at the lower limits of normal. Atria: Both atria are normal in size. There is no Doppler evidence for an interatrial shunt. Mitral Valve: The mitral valve is normal in structure and function. There is mild mitral regurgitation. Aortic Valve: The aortic valve is normal in structure and function. There is no aortic valve stenosis. There is mild aortic regurgitation. Tricuspid Valve: The tricuspid valve is normal in structure and function. There is trace tricuspid regurgitation. Pulmonary artery pressures cannot be estimated because of the lack of a measurable TR jet velocity but the IVC suggests a CVP of around 3 mmHg. Pulmonic Valve: The pulmonic valve is normal in structure and function. There is trace pulmonic regurgitation. Great Vessels: The aortic root is normal size. The ascending aorta is mildly enlarged. The IVC is of normal diameter and collapses greater than 50% with a sniff. This suggests a low right atrial pressure of 3 mm Hg. Pericardium/ Pleura There is a trivial pericardial effusion noted. There is no pleural effusion. MMode/2D Measurements & Calculations LVIDd: 4.8 cm LVOT diam: 2.1 cm LVIDs: 3.2 cm Ao root diam: 3.2 cm FS: 33.3 % asc Aorta Diam: 4.1 cm IVSd: 0.90 cm LVPWd: 0.80 cm LV astorga. diameter/BSA (cm/m^2): 2.8 LV sys. diameter/BSA (cm/m^2): 1.9 LA dimension: 3.5 cm RA long axis: 5.7 cm LA A2 area: 19.3 cm2 LA A4 area: 18.1 cm2 LA length (vol): 5.7 cm LA vol: 52.2 ml LA vol index: 30.2 ml/m2 TAPSE_phl: 2.3 cm Doppler Measurements & Calculations Ao V2 max: 144.0 cm/sec LVOT Max Asif: 113.0 cm/sec Ao V2 mean: 101.0 cm/sec LV V1 max P.1 mmHg Ao max P.0 mmHg LV V1 VTI: 27.8 cm Ao mean P.0 mmHg UMESH(I,D): 2.7 cm2 Ao V2 VTI: 35.2 cm UMESH(V,D): 2.7 cm2 sev ratio: 0.79 UMESH indexed to BSA (cm^2/m^2): 1.6 AI P1/2t: 567.4 msec AI dec slope: 255.0 cm/sec2 MV E max asif: 94.7 cm/sec PA V2 max: 84.1 cm/sec MV A max asif: 93.4 cm/sec PA V2 mean: 66.3 cm/sec MV E/A: 1.0 PA mean P.0 mmHg Med [place] E' Asif: 4.3 cm/sec PA pr(Accel): -7.9 mmHg E/E' med: 22.3 Lat [place] E' Asif: 6.5 cm/sec E/E' lat: 14.6 E/e' average: 18.4 MV dec time: 0.17 sec SV(LVOT): 96.3 ml AV P1/2t-pr_phl: 569.0 msec AV VR_phl: 0.78 UMESH(VTI)/BSA_phl: 1.6 MV P1/2t-pr_phl: 48.0 msec Reading Physician:06:57 PM
== END ==
PROVIDERS: PCP Internal Medicine; Referring Provider Internal Medicine Cardiovascular Disease; Visit Provider Internal Medicine Cardiovascular Disease
DX: I08.0 Rheumatic disorders of both mitral and aortic valves (principal); I77.89 Other specified disorders of arteries and arterioles; I71.2 Thoracic aortic aneurysm, without rupture; I10 Essential (primary) hypertension
CPT/HCPCS: 36415; 80048; 80061; 85025; 93306

== ENCOUNTER → 2020-11-24 13:13 | Outpatient (CLI) | payer MEDICARE, MEDICAID, SELFPAY ==
[2020-11-24 13:51] LABS: Add Manual Diff / Slide Review NO; Basophils Absolute Auto 100 /uL (0-100); Basophils Percent Auto 1.4 % (0-2); Eosinophils Absolute Auto 400 /uL (0-450); Eosinophils Percent Auto 7.4 % (2-4); Hematocrit 39.1 % (36-46); Lymphocytes Absolute Auto 1300 /uL (1100-4500); Lymphocytes Percent Auto 23.8 % (25-40); Mean Corpuscular HGB Conc 33.3 % (30-36); Mean Corpuscular Hemoglobin 31.3 PG (26-34); Mean Corpuscular Volume 93.9 fL (80-100); Monocytes Absolute Auto 700 /uL (0-900); Monocytes Percent Auto 11.9 % (3-14); Neutrophils Absolute Auto 3100 /uL (1500-7000); Neutrophils Percent Auto 55.5 % (50-75); Platelet Count 282 X10^3/uL (150-400); Red Blood Cell Count 4.16 X10^6/uL (4.0-5.2); Red Cell Distribution Width 13.6 % (11.6-14.8); White Blood Cell Count 5.6 X10^3/uL (4.5-11.0)
[2020-11-24 13:58] LABS: BUN Creatinine Ratio 26.1 (6-22); Blood Urea Nitrogen 24 mg/dL (7-17); Calcium 10.3 mg/dL (8.4-10.2); Carbon Dioxide 30 mmol/L (22-32); Chloride 106 mmol/L (98-107); Cholesterol 189 mg/dL (140-199); Estimated Glomerular Filt Rate 58.9 mL/min (>60); Glucose 87 mg/dL (80-110); HDL Cholesterol 64 mg/dL (40-60); HEMOLYSIS < 15 (0-50); LDL Cholesterol Calculated 103 mg/dL (<100); Sodium 141 mmol/L (137-145); Triglycerides 108 mg/dL (35-150)
== END ==
PROVIDERS: PCP Internal Medicine; Referring Provider Internal Medicine Cardiovascular Disease; Visit Provider Internal Medicine Cardiovascular Disease
DX: I10 Essential (primary) hypertension (principal)
CPT/HCPCS: 36415; 80048; 80061; 85025

== ENCOUNTER → 2021-04-24 16:21 | Outpatient (CLI) | payer MEDICARE, MEDICAID, SELFPAY ==
--- NOTE | 2021-04-24 16:24 | DI.RAD.S_ITS ---
PROCEDURE: XR FEMUR LT MIN 2V INDICATIONS: left leg pain TECHNIQUE: 2 views of the femur were acquired. COMPARISON: None. FINDINGS: Bones: No fractures or dislocations. No suspicious bony lesions. Severe joint space narrowing and small marginal osteophytes noted at the knee. Soft tissues: No suspicious soft tissue calcifications or masses. Diffuse atherosclerotic vascular calcification noted. IMPRESSION: Unremarkable femoral radiographs without lytic or blastic lesion. No fracture. Advanced knee osteoarthritis. Approved by: Prudencio Hobson M.D. on 04/24/2021 at 16:39
== END ==
PROVIDERS: PCP Internal Medicine; Referring Provider Internal Medicine; Visit Provider Internal Medicine
DX: M17.12 Unilateral primary osteoarthritis, left knee (principal); M79.605 Pain in left leg
CPT/HCPCS: 73552

== ENCOUNTER 2021-05-11 09:17 | Emergency (ER) | payer MEDICARE, MEDICAID, SELFPAY ==
[2021-05-11] VITALS (34 sets, daily range): BP systolic 134–205; BP diastolic 71–102; PULSE 59–71; RESP 13–23; TEMP 36.6; O2SAT 90–99; BMI 26.9
--- NOTE | 2021-05-11 09:25 | ED_ITS ---
HPI - Extremity Injury (Lower) General Chief Complaint: Extremity Injury, Lower Stated Complaint: left leg pain Time Seen by Provider: 05/11/21 09:24 History of Present Illness HPI Narrative: Patient is an 81-year-old female history of rheumatoid arthritis, degenerative disc disease, who has recently began using a wheelchair. She apparently went to sit down in her wheelchair in heard a pop. She was getting up from the toliet, turned, sat down heard a pop. Taking Prolia for osteoprosis. She has obvious swelling and pain in her mid left thigh. She denies any other injury. She was given ketamine 30 mg and fentanyl by EMS. sHe is in position of comfort. No hip pain. Brother--Be Agrawal [phone] Related Data Home Medications Medication Instructions Recorded Confirmed levothyroxine 88 mcg tablet 0.088 mg PO QDAY #0 07/15/12 02/07/19 ascorbic acid (vitamin C) 500 mg 500 mg PO QDAY #0 09/23/12 02/07/19 tablet cholecalciferol (vitamin D3) 25 1,000 unit PO QDAY #0 09/23/12 02/07/19 mcg (1,000 unit) tablet (Vitamin D3) nitroglycerin 0.4 mg sublingual 0.4 mg SUBLINGUAL PRN #0 09/23/12 02/07/19 tablet (Nitrostat) Probiotic 1 cap PO DAILY 10/04/17 02/07/19 calcium carbonate 500 mg calcium 2 tab PO BID 10/04/17 02/07/19 (1,250 mg) tablet (Calcium 500) cranberry 405 mg capsule 405 mg PO DAILY 10/04/17 02/07/19 metoprolol tartrate 50 mg tablet 50 mg PO BID 10/04/17 02/07/19 potassium chloride 10 mEq 1 cap PO BID 10/04/17 02/07/19 capsule,extended release ramipril 2.5 mg capsule 1 cap PO DAILY 10/04/17 02/07/19 hydrocodone 5 mg-acetaminophen 325 1 tab PO Q4-6H PRN MDD N 10/22/17 02/07/19 mg tablet chlorthalidone 25 mg tablet 25 mg PO DAILY 02/07/19 02/07/19 pantoprazole 40 mg tablet,delayed 40 mg PO DAILY 02/07/19 02/07/19 release (Protonix) Previous Rx's Medication Instructions Recorded oxycodone-acetaminophen 5 mg-325 1 tab PO Q4-6H PRN #10 tab 10/22/18 mg tablet (Percocet) Allergies Allergy/AdvReac Type Severity Reaction Status Date / Time Sulfa (Sulfonamide Allergy Mild Rash, hives Verified 05/11/21 09:24 Antibiotics) [SULFA (SULFONAMIDE ANTIBIOTICS)] cortisone [CORTISONE] AdvReac Mild 'Shot BP Verified 05/11/21 09:24 up' meperidine [MEPERIDINE] AdvReac Mild Confusion, Verified 05/11/21 09:24 I get a little nutsy from it. propoxyphene [PROPOXYPHENE] AdvReac Mild Confusion, Verified 05/11/21 09:24 I get a little nutsy. Review of Systems Review of Systems Narrative: GENERAL: Denies chills,fever HEENT: Denies throat pain RESPIRATORY: Denies dyspnea, cough, wheezing CARDIOVASCULAR: Denies chest pain, palpitations GASTROINTESTINAL: Denies nausea, vomiting MUSCULOSKELETAL: See HPI SKIN: No rash, no laceration, no pruritus NEUROLOGIC: Denies weakness, dizziness, headache, numbness 8 point review of systems is negative except for those stated above and HPI Patient History Medical History Diverticulosis Goiter Labile hypertension Lumbar degenerative disc disease Osteoporosis Rectal bleeding Rheumatoid arthritis Surgical History Hx laparoscopic cholecystectomy Social History household members: family Smoking Status: Never smoker alcohol intake: never substance use type: does not use Smoking Status: Never smoker Substance Use Type: does not use Exam Initial Vital Signs Initial Vital Signs: Vital Signs Temperature 97.9 F 05/11/21 09:24 Pulse Rate 69 05/11/21 09:24 Respiratory Rate 18 05/11/21 09:24 Blood Pressure 205/102 H 05/11/21 09:24 Pulse Oximetry 97 05/11/21 09:24 GENERAL: Alert 81-year-old female and in no acute distress. HEENT: Head atraumatic,EOMI, pupils reactive, face symmetric, moist mucous membranes CARDIOVASCULAR: Regular rate and rhythm without murmurs, rubs or gallops. RESPIRATORY: Breath sounds equal bilaterally, no wheezes rales or rhonchi. ABDOMEN: Soft, nontender. Normoactive bowel sounds all 4 quadrants. No guarding or rebound. EXTREMITIES: Normal range of motion, no clubbing or edema. Neurovascularly intact Left leg swelling mid thigh pelvis stable distal pedal pulse intact knee slightl y flexed. NEUROLOGICAL: Alert and oriented x4. SKIN: Warm, dry, no laceration, no petechiae, no rashes or lesions. Course Orders Ordered: ED Orders 05/11/21 11:00 XR femur LT min 2V Stat 05/11/21 12:06 Urinalysis and Microscopic Stat Discontinued Medications Hydromorphone HCl (Hydromorphone 0.5 Mg Inj) 0.5 mg IV NOW ONE Stop: 05/11/21 09:58 Last Admin: 05/11/21 10:03 Dose: 0.5 mg Documented by: GASTON Hydromorphone HCl (Hydromorphone 1 Mg Inj) 1 mg IV NOW ONE Stop: 05/11/21 10:21 Last Admin: 05/11/21 10:26 Dose: 1 mg Documented by: GASTON Hydromorphone HCl (Hydromorphone 1 Mg Inj) 1 mg IV NOW ONE Stop: 05/11/21 11:22 Last Admin: 05/11/21 10:30 Dose: 1 mg Documented by: RENNY Hydromorphone HCl (Hydromorphone 0.5 Mg Inj) 0.5 mg IV NOW ONE Stop: 05/11/21 15:28 Last Admin: 05/11/21 15:31 Dose: 0.5 mg Documented by: RAKESH Hydromorphone HCl (Hydromorphone 0.5 Mg Inj) 0.5 mg IV Q3H PRN PRN Reason: Pain, Moderate (4-6) Last Admin: 05/11/21 16:06 Dose: 0.5 mg Documented by: RAKESH Sodium Chloride (Normal Saline 0.9%) 1,000 mls @ 125 mls/hr IV CONT ONE Stop: 05/11/21 22:41 Last Admin: 05/11/21 14:56 Dose: 125 mls/hr Documented by: RAKESH Vital Signs Vital signs: Vital Signs - 8 hr 05/11/21 11:30 05/11/21 11:45 05/11/21 12:00 Pulse Rate 61 60 59 L Respiratory Rate 14 14 13 Blood Pressure 141/73 H 137/74 139/71 Pulse Oximetry 97 97 98 05/11/21 12:15 05/11/21 12:30 05/11/21 12:45 Pulse Rate 62 61 62 Respiratory Rate 15 14 13 Blood Pressure 143/77 H 138/77 134/73 Pulse Oximetry 93 92 92 05/11/21 13:00 05/11/21 13:15 05/11/21 13:30 Pulse Rate 65 63 65 Respiratory Rate 15 14 13 Blood Pressure 146/76 H 140/72 140/72 Pulse Oximetry 93 92 93 05/11/21 13:45 05/11/21 14:00 05/11/21 14:15 Pulse Rate 66 69 67 Respiratory Rate 14 17 14 Blood Pressure 138/73 156/80 H 155/79 H Pulse Oximetry 92 95 94 05/11/21 14:30 05/11/21 14:45 05/11/21 15:00 Pulse Rate 66 65 69 Respiratory Rate 13 13 15 Blood Pressure 146/72 H 147/74 H 169/78 H Pulse Oximetry 93 93 94 05/11/21 15:15 05/11/21 15:30 05/11/21 15:45 Pulse Rate 71 71 70 Respiratory Rate 16 15 19 Blood Pressure 168/79 H 163/74 H Pulse Oximetry 96 97 98 05/11/21 15:52 05/11/21 16:00 05/11/21 16:15 Pulse Rate 69 68 68 Respiratory Rate 23 13 15 Blood Pressure 163/77 H 159/78 H 157/76 H Pulse Oximetry 98 97 97 MDM - Extremity Injury (Lower) Lab Data Result diagrams: 05/11/21 09:30 05/11/21 09:30 Labs: Lab Results 05/11/21 05/11/21 05/11/21 Range/Units 09:30 09:30 10:06 WBC 8.8 (4.5-11.0) X10^3/uL RBC 3.85 L (4.0-5.2) X10^6/uL Hgb 12.5 (12.0-16.0) g/dL Hct 36.9 (36-46) % MCV 96.0 (80-100) fL MCH 32.5 (26-34) PG MCHC 33.8 (30-36) % RDW 13.3 (11.6-14.8) % Plt Count 276 (150-400) X10^3/uL Neut % (Auto) 67.6 (50-75) % Lymph % (Auto) 13.5 L (25-40) % [place] % (Auto) 15.1 H (3-14) % Eos % (Auto) 3.0 (2-4) % Baso % (Auto) 0.8 (0-2) % Neut # (Auto) 5900 (4672-1146) /uL Lymph # (Auto) 1200 (3069-4312) /uL [place] # (Auto) 1300 H (0-900) /uL Eos # (Auto) 300 (0-450) /uL Baso # (Auto) 100 (0-100) /uL Sodium 141 (137-145) mmol/L Potassium 3.7 (3.4-5.1) mmol/L Chloride 104 (98-107) mmol/L Carbon Dioxide 31 (22-32) mmol/L BUN 32 H (7-17) mg/dL Creatinine 1.09 H (0.52-1.04) mg/dL Estimated GFR 48.3 L (>60) mL/min BUN/Creatinine Ratio 29.4 H (6-22) Glucose 105 (80-110) mg/dL Calcium 10.1 (8.4-10.2) mg/dL Total Bilirubin 0.7 (0.2-1.3) mg/dL AST 32 (14-36) IU/L ALT 27 (<35) IU/L Alkaline Phosphatase 71 (38-126) U/L Total Protein 8.0 (6.3-8.2) g/dL Albumin 4.3 (3.5-5.0) g/dL Globulin 3.7 (1.7-4.1) g/dL Albumin/Globulin Ratio 1.2 (1.0-2.8) Urine Color Urine Appearance Urine pH (4.5-8.0) Ur Specific [place] (1.000-1.035) Urine Protein (Negative) Urine Glucose (UA) (Negative) g/dL Urine Ketones (NEGATIVE) Urine Occult Blood (Negative) Urine Nitrate (Negative) Urine Bilirubin (NEGATIVE) Urine Urobilinogen (0.2) E.U./dL Ur Leukocyte Esterase (NEGATIVE) Urine RBC (0-5/HPF) Urine WBC (0-5/HPF) Ur Squamous Epith Cells (0-5/HPF) Ur Transition Epith Cell (0-5/HPF) Urine Bacteria (None) Hyaline Casts (None) Ur Culture Indicated? SARS-CoV-2 (PCR) Negative (Negative) 05/11/21 Range/Units 12:06 WBC (4.5-11.0) X10^3/uL RBC (4.0-5.2) X10^6/uL Hgb (12.0-16.0) g/dL Hct (36-46) % MCV (80-100) fL MCH (26-34) PG MCHC (30-36) % RDW (11.6-14.8) % Plt Count (150-400) X10^3/uL Neut % (Auto) (50-75) % Lymph % (Auto) (25-40) % [place] % (Auto) (3-14) % Eos % (Auto) (2-4) % Baso % (Auto) (0-2) % Neut # (Auto) (0487-7670) /uL Lymph # (Auto) (0178-0309) /uL [place] # (Auto) (0-900) /uL Eos # (Auto) (0-450) /uL Baso # (Auto) (0-100) /uL Sodium (137-145) mmol/L Potassium (3.4-5.1) mmol/L Chloride (98-107) mmol/L Carbon Dioxide (22-32) mmol/L BUN (7-17) mg/dL Creatinine (0.52-1.04) mg/dL Estimated GFR (>60) mL/min BUN/Creatinine Ratio (6-22) Glucose (80-110) mg/dL Calcium (8.4-10.2) mg/dL Total Bilirubin (0.2-1.3) mg/dL AST (14-36) IU/L ALT (<35) IU/L Alkaline Phosphatase (38-126) U/L Total Protein (6.3-8.2) g/dL Albumin (3.5-5.0) g/dL Globulin (1.7-4.1) g/dL Albumin/Globulin Ratio (1.0-2.8) Urine Color Yellow Urine Appearance Sl cloudy Urine pH 5.0 (4.5-8.0) Ur Specific [place] 1.020 (1.000-1.035) Urine Protein Negative (Negative) Urine Glucose (UA) Negative (Negative) g/dL Urine Ketones Negative (NEGATIVE) Urine Occult Blood Negative (Negative) Urine Nitrate Negative (Negative) Urine Bilirubin Negative (NEGATIVE) Urine Urobilinogen 0.2 (0.2) E.U./dL Ur Leukocyte Esterase Negative (NEGATIVE) Urine RBC 0-1/hpf (0-5/HPF) Urine WBC 0-1/hpf (0-5/HPF) Ur Squamous Epith Cells 0-1 /hpf (0-5/HPF) Ur Transition Epith Cell 0-1/hpf (0-5/HPF) Urine Bacteria None seen (None) Hyaline Casts 1-5/lpf (None) Ur Culture Indicated? Cult not indicated SARS-CoV-2 (PCR) (Negative) Imaging Data Extremity x-ray #1: Radiologist's Impression: PROCEDURE:? XR FEMUR LT MIN 2V ? INDICATIONS:? deformity ? TECHNIQUE:? 4 views of the femur were acquired.? ? COMPARISON:? [facility], CR, XR FEMUR LT MIN 2V, 04/24/2021, 16:31. ? FINDINGS:? ? Bones:? There is a fracture of the left femoral shaft with moderate medial, posterior, proximal displacement as well as moderate varus angulation and internal rotation.? There is moderate degeneration of the visualized left knee. ? Soft tissues:? No suspicious soft tissue calcifications or masses.? ? IMPRESSION:? ? 1. Moderately displaced and angulated fracture of the left femoral shaft.? ? ? Dictated by: Vlad Hernandez M.D. on 05/11/2021 at 11:15 ? ? Approved by: Vlad Hernandez M.D. on 05/11/2021 at 11:17 ? Extremity x-ray #2: Radiologist's Impression: PROCEDURE:? XR HIP W PEL IF DONE LT 2V ? INDICATIONS:? pain deformity in mid femur ? TECHNIQUE:? AP pelvis with lateral view of the left hip. ? COMPARISON:? [facility], CR, XR FEMUR LT MIN 2V, 05/11/2021, 10:59.? [facility], CR, HIP 2V LEFT, 06/04/2009, 12:56. ? FINDINGS:? ? Bones:? No fractures or dislocations in the proximal femur.? The left femoral shaft fracture is not included on the current study.? Pelvic ring appears intact.? No suspicious bony lesions.? ? Soft tissues:? The visualized bowel gas pattern is normal.? No suspicious soft tissue calcifications.? ? IMPRESSION:? ? 1. No fracture or dislocation of the left hip. ? 2. Left femoral shaft fracture not included on the current study. ? ? ? Dictated by: Vlad Hernandez M.D. on 05/11/2021 at 11:14 ? ? Extremity x-ray #3: Radiologist's Impression: PROCEDURE:? XR FEMUR LT MIN 2V ? INDICATIONS:? post traction application ? TECHNIQUE:? 2 views of the femur were acquired.? ? COMPARISON:? [facility], , XR FEMUR LT MIN 2V, 05/11/2021, 10:04. ? FINDINGS:? ? Bones:? There is interval reduction of earlier noted displaced left mid femoral shaft fracture with improved alignment.? No suspicious bony lesions.? ? Soft tissues:? No suspicious soft tissue calcifications or masses.? ? IMPRESSION:? Interval reduction of earlier noted left mid femoral shaft fracture with improved femoral alignment.? No new fracture is seen. ? ? Dictated by: Christian Kearney M.D. on 05/11/2021 at 11:18 ? ? [facility] Narrative Medical decision making narrative: Patient is found to have a midshaft femur fracture with low mechanism. I suspect that this from her medication. She is placed in traction splint which seems to help her pain. Pain is also controlled with dilaudid. 1030am-attempted to call Dr. Hodges [facility] 1pm Dr. Garcia, orthopedic has reviewed x-ray agrees with transfer I spoken with her brother is aware of her transfer. She remains hemodynamically stable blood pressure and heart rate within normal limits. Discharge Plan Departure Patient Disposition: [facility] Clinical Impression: Fracture of femur Prescriptions: No Action levothyroxine 88 MCG tablet 0.088 mg PO QDAY Qty: 0 0RF ascorbic acid (vitamin C) 500 MG tablet 500 mg PO QDAY Qty: 0 0RF cholecalciferol (vitamin D3) [Vitamin D3] 1,000 unit Tablet 1,000 unit PO QDAY Qty: 0 0RF nitroglycerin [Nitrostat] 0.4 MG tablet, sublingual 0.4 mg Sublingual PRN Qty: 0 0RF potassium chloride 10 mEq capsule, extended release 1 cap PO BID 0RF Label Comments: take 1 capsule by mouth twice a day calcium carbonate [Calcium 500] 500 mg calcium (1,250 mg) Tablet 2 tab PO BID 0RF ramipril 2.5 mg capsule 1 cap PO DAILY 0RF Label Comments: 1 capsule Once a day Orally cranberry 405 mg Capsule 405 mg PO DAILY 0RF metoprolol tartrate 50 mg tablet 50 mg PO BID 0RF Label Comments: take 1 tablet by mouth twice a day Probiotic 1 cap PO DAILY 0RF hydrocodone-acetaminophen 5-325 mg tablet 1 tab PO Q4-6H MDD N PRN (Reason: Pain, Moderate) 0RF Label Comments: take 1 tablet by mouth every 6 hours if needed oxycodone-acetaminophen [Percocet] 5-325 mg tablet 1 tab PO Q4-6H PRN (Reason: pain) Qty: 10 0RF chlorthalidone 25 mg Tablet 25 mg PO DAILY 0RF pantoprazole [Protonix] 40 mg Tablet,Delayed Release (Dr/Ec) 40 mg PO DAILY 0RF Referrals: Francoise Yanes MD [Primary Care Provider] -
--- NOTE | 2021-05-11 09:25 | DI.RAD.S_ITS ---
PROCEDURE: XR FEMUR LT MIN 2V INDICATIONS: deformity TECHNIQUE: 4 views of the femur were acquired. COMPARISON: [facility], CR, XR FEMUR LT MIN 2V, 04/24/2021, 16:31. FINDINGS: Bones: There is a fracture of the left femoral shaft with moderate medial, posterior, proximal displacement as well as moderate varus angulation and internal rotation. There is moderate degeneration of the visualized left knee. Soft tissues: No suspicious soft tissue calcifications or masses. IMPRESSION: 1. Moderately displaced and angulated fracture of the left femoral shaft. Dictated by: Vlad Hernandez M.D. on 05/11/2021 at 11:15 Approved by: Vlad Hernandez M.D. on 05/11/2021 at 11:17
--- NOTE | 2021-05-11 09:25 | DI.RAD.S_ITS ---
PROCEDURE: XR HIP W PEL IF DONE LT 2V INDICATIONS: pain deformity in mid femur TECHNIQUE: AP pelvis with lateral view of the left hip. COMPARISON: [facility], ABBEY, XR FEMUR LT MIN 2V, 05/11/2021, 10:59. [facility], [facility], HIP 2V LEFT, 06/04/2009, 12:56. FINDINGS: Bones: No fractures or dislocations in the proximal femur. The left femoral shaft fracture is not included on the current study. Pelvic ring appears intact. No suspicious bony lesions. Soft tissues: The visualized bowel gas pattern is normal. No suspicious soft tissue calcifications. IMPRESSION: 1. No fracture or dislocation of the left hip. 2. Left femoral shaft fracture not included on the current study. Dictated by: Vlad Hernandez M.D. on 05/11/2021 at 11:14 Approved by: Vlad Hernadnez M.D. on 05/11/2021 at 11:15
[2021-05-11 09:39] LABS: Add Manual Diff / Slide Review NO; Basophils Absolute Auto 100 /uL (0-100); Basophils Percent Auto 0.8 % (0-2); Eosinophils Absolute Auto 300 /uL (0-450); Hematocrit 36.9 % (36-46); Hemoglobin 12.5 g/dL (12.0-16.0); Lymphocytes Absolute Auto 1200 /uL (1100-4500); Lymphocytes Percent Auto 13.5 % (25-40); Mean Corpuscular HGB Conc 33.8 % (30-36); Mean Corpuscular Hemoglobin 32.5 PG (26-34); Monocytes Absolute Auto 1300 /uL (0-900); Monocytes Percent Auto 15.1 % (3-14); Neutrophils Absolute Auto 5900 /uL (1500-7000); Neutrophils Percent Auto 67.6 % (50-75); Platelet Count 276 X10^3/uL (150-400); Red Blood Cell Count 3.85 X10^6/uL (4.0-5.2); Red Cell Distribution Width 13.3 % (11.6-14.8); White Blood Cell Count 8.8 X10^3/uL (4.5-11.0)
[2021-05-11 09:51] LABS: Alanine Aminotransferase 27 IU/L (<35); Albumin 4.3 g/dL (3.5-5.0); Albumin Globulin Ratio 1.2 (1.0-2.8); Alkaline Phosphatase 71 U/L (38-126); Aspartate Aminotransferase 32 IU/L (14-36); BUN Creatinine Ratio 29.4 (6-22); Bilirubin Total 0.7 mg/dL (0.2-1.3); Blood Urea Nitrogen 32 mg/dL (7-17); Calcium 10.1 mg/dL (8.4-10.2); Carbon Dioxide 31 mmol/L (22-32); Chloride 104 mmol/L (98-107); Estimated Glomerular Filt Rate 48.3 mL/min (>60); Globulin 3.7 g/dL (1.7-4.1); Glucose 105 mg/dL (80-110); HEMOLYSIS < 15 (0-50); Potassium 3.7 mmol/L (3.4-5.1); Sodium 141 mmol/L (137-145)
[2021-05-11] MEDS: HYDROMORPHONE 0.5 MG INJ IV ×3 (10:03→16:06)
[2021-05-11] MEDS: HYDROMORPHONE 1 MG INJ IV ×2 (10:26→10:30)
[2021-05-11] MEDS: MIDAZOLAM 2 MG/2 ML VIAL (10:30)
[2021-05-11 10:33] LABS: COVID19 -Nasal RAPID Negative (Negative)
--- NOTE | 2021-05-11 11:00 | DI.RAD.S_ITS ---
PROCEDURE: XR FEMUR LT MIN 2V INDICATIONS: post traction application TECHNIQUE: 2 views of the femur were acquired. COMPARISON: [facility], CR, XR FEMUR LT MIN 2V, 05/11/2021, 10:04. FINDINGS: Bones: There is interval reduction of earlier noted displaced left mid femoral shaft fracture with improved alignment. No suspicious bony lesions. Soft tissues: No suspicious soft tissue calcifications or masses. IMPRESSION: Interval reduction of earlier noted left mid femoral shaft fracture with improved femoral alignment. No new fracture is seen. Dictated by: Christian Kearney M.D. on 05/11/2021 at 11:18 Approved by: Christian Kearney M.D. on 05/11/2021 at 11:25
[2021-05-11 12:15] LABS: Appearance Urine UA SL CLOUDY; Bilirubin Urine UA NEGATIVE (NEGATIVE); Color Urine UA YELLOW; Glucose Urine UA NEGATIVE (Negative); Ketones Urine UA NEGATIVE (NEGATIVE); Leukocyte Esterase Urine UA NEGATIVE (NEGATIVE); Nitrite Urine UA NEGATIVE (Negative); Occult Blood Urine UA NEGATIVE (Negative); Protein Urine UA NEGATIVE (Negative); Urobilinogen Urine UA 0.2 E.U./dL (0.2)
[2021-05-11 12:32] LABS: RBC Urine 0-1/HPF (0-5/HPF); Squamous Epithelial Cell Urine 0-1 /HPF (0-5/HPF); Transitional Epi Cells Urine 0-1/HPF (0-5/HPF); WBC Urine 0-1/HPF (0-5/HPF)
[2021-05-11 12:33] LABS: Bacteria Urine None Seen; Culture Indicated Urine Cult Not Indicated; Hyaline Casts Urine 1-5/LPF
[2021-05-11] MEDS: SODIUM CHLORIDE 0.9% 1,000 ML 125 ML IV (14:56)
== END 2021-05-11 16:55 | disposition short-term general hospital (02) ==
PROVIDERS: Emergency Provider Emergency Medicine; PCP Internal Medicine
DX: S72.302A Unspecified fracture of shaft of left femur, initial encounter for closed fracture (principal); Z20.822 Contact with and (suspected) exposure to COVID-19; X58.XXXA Exposure to other specified factors, initial encounter
CPT/HCPCS: 73502; 73552; 80053; 81001; 85025; 87635; 96361; 96374; 96376; 99284; C9803; J1170; J2250

== ENCOUNTER → 2021-06-01 09:03 | Outpatient (ROUT) | payer MEDICARE, MEDICAID, SELFPAY ==
[2021-06-01 09:47] LABS: Cholesterol 141 mg/dL (140-199); HDL Cholesterol 46 mg/dL (40-60); LDL Cholesterol Calculated 57 mg/dL (<100); Triglycerides 191 mg/dL (35-150)
== END ==
PROVIDERS: PCP Internal Medicine; Visit Provider Physician Assistant
DX: E78.5 Hyperlipidemia, unspecified (principal)
CPT/HCPCS: 80061

== ENCOUNTER → 2021-06-04 14:36 | Outpatient (ROUT) | payer MEDICARE, MEDICAID, SELFPAY ==
[2021-06-04 14:45] LABS: Appearance Urine UA SL CLOUDY; Bilirubin Urine UA NEGATIVE (NEGATIVE); Color Urine UA YELLOW; Glucose Urine UA NEGATIVE (Negative); Ketones Urine UA TRACE (NEGATIVE); Leukocyte Esterase Urine UA TRACE (NEGATIVE); Nitrite Urine UA NEGATIVE (Negative); Occult Blood Urine UA 2+ (Negative); Protein Urine UA 1+ (Negative); Urobilinogen Urine UA 0.2 E.U./dL (0.2)
[2021-06-04 14:52] LABS: RBC Urine 1-5/HPF (0-5/HPF); Squamous Epithelial Cell Urine 0-1 /HPF (0-5/HPF); WBC Urine 30-100/HPF (0-5/HPF); pH Urine UA 6.5 (4.5-8.0)
[2021-06-04 14:53] LABS: Amorphous Sediment Urine 1+; Bacteria Urine Occasional (0-1); Culture Indicated Urine Specimen Cultured; Mucus Urine 1+ (Negative)
== END ==
PROVIDERS: PCP Internal Medicine; Visit Provider Emergency Medicine
DX: E03.9 Hypothyroidism, unspecified (principal); M06.9 Rheumatoid arthritis, unspecified; M81.0 Age-related osteoporosis without current pathological fracture; I10 Essential (primary) hypertension
CPT/HCPCS: 81001; 87077; 87086; 87186

== ENCOUNTER → 2021-12-02 12:38 | Outpatient (CLI) | payer MEDICARE, MEDICAID, SELFPAY ==
--- NOTE | 2021-12-02 12:41 | DI.MRI.S_ITS ---
PROCEDURE: MR FEMUR RT WO CON INDICATIONS: RIGHT LEG PAIN/ASSISTED USE OF BISPHOSPHONATE TECHNIQUE: Noncontrast coronal T1 spin echo and STIR through both thighs; axial T1 spin echo and T2 fast spin echo with fat saturation, and sagittal T1 spin echo with fat saturation and STIR through the right femur. COMPARISON: [facility], CR, XR HIP W PEL IF DONE LT 2V, 05/11/2021, 10:04. [facility], CR, XR FEMUR LT MIN 2V, 05/11/2021, 10:59. FINDINGS: Image quality: Excellent. Bones: Postsurgical changes are seen on large [id number] coronal images within the left proximal femur from prior fracture fixation. There is associated metal artifact that obscures adjacent structures. Healing changes are partially imaged at the mid left femoral fracture site. No acute trabecular bone injury or fracture within the right femur or the included pelvic bones. No suspicious intraosseous lesion. Degenerative changes are partially imaged in the knees. Soft tissues: There is a moderate right trochanteric bursal effusion with adjacent distal gluteus medius and minimus tendinosis and possible low-grade partial tearing of the distal gluteus medius tendon. The iliotibial band appears to be intact. The origins of the rectus femoris muscle are intact. Distal iliopsoas tendon is intact. Mild proximal hamstring tendinosis. The musculature of the thigh is normal in bulk for age. There is a moderate right knee effusion. However, the internal structures of the knee are not well evaluated on this exam. A small medial popliteal cyst is present. A left knee effusion is also present. IMPRESSION: 1. No acute trabecular bone injury or fracture within the right femur. Postsurgical changes from left femoral fracture fixation are partially imaged. 2. Suspected low-grade partial tearing of the distal right gluteus medius tendon at its insertion onto the greater trochanter superimposed on chronic gluteus medius and minimus tendinosis. Moderate right trochanteric bursal effusion. 3. Mild proximal hamstring tendinosis. 4. Degenerative changes are partially imaged in the knees bilaterally with bilateral knee effusions. Small right medial popliteal cyst. Dictated by: Sandor Devi M.D. on 12/03/2021 at 8:21 Approved by: Sandor Devi M.D. on 12/03/2021 at 8:29
== END ==
PROVIDERS: Referring Provider Orthopaedic Surgery; Visit Provider Orthopaedic Surgery
DX: M79.604 Pain in right leg (principal); M84.75 Atypical femoral fracture; Z79.83 Long term (current) use of bisphosphonates; M25.451 Effusion, right hip; M71.21 Synovial cyst of popliteal space [Baker], right knee
CPT/HCPCS: 73718

== ENCOUNTER → 2022-01-08 15:29 | Outpatient (CLI) | payer MEDICARE, MEDICAID, SELFPAY ==
--- NOTE | 2022-01-08 15:30 | DI.MG.S_ITS ---
BILATERAL DIGITAL SCREENING MAMMOGRAM 3D/2D WITH CAD: 01/08/2022 CLINICAL: Routine screening. Comparison is made to exams dated: 07/03/2020 mammogram, 01/12/2019 mammogram, and 08/24/2017 mammogram - [facility]. Both breasts are heterogeneously dense, which may obscure small masses (category c / 51-75% glandular tissue). Current study was also evaluated with a Computer Aided Detection (CAD) system. There are benign post operative findings in the right breast. No significant masses, calcifications, or other findings are seen in either breast. There has been no significant interval change. IMPRESSION: BENIGN There is no mammographic evidence of malignancy. A 1 year screening mammogram is recommended. Based on the Tyrer Cuzick model (a risk assessment model) the patient's lifetime risk is 1.2% and her 10 year risk is 0.0%. According to the ACR, ACS, and NCCN guidelines, an annual breast MRI exam along with mammogram is recommended if the patient's lifetime risk is 20% or greater. This exam was interpreted at Station ID: [id number]. NOTE: For mammograms, a report in lay terms will be sent to the patient. Approximately 15% of breast malignancies will not be visualized mammographically. In the management of a palpable breast mass, a negative mammogram must not discourage biopsy of a clinically suspicious lesion. Electronically Signed By: Yeimy rubalcava/willow:01/08/2022 18:02:02 letter sent: Normal Exam ACR BI-RADS Category 2: Benign Finding(s) 3342F
== END ==
PROVIDERS: PCP Internal Medicine; Referring Provider Internal Medicine; Visit Provider Internal Medicine
DX: Z12.31 Encounter for screening mammogram for malignant neoplasm of breast (principal)
CPT/HCPCS: 77063; 77067

== ENCOUNTER → 2022-02-19 15:08 | Outpatient (CLI) | payer MEDICARE, MEDICAID, SELFPAY ==
--- NOTE | 2022-02-19 15:13 | DI.US.S_ITS ---
PROCEDURE: US CAROTID DOPPLER BI INDICATIONS: LEFT EYE CENTRAL RETINAL VEIN OCCLUSION WITH MACULAR EDEMA TECHNIQUE: Color and pulse Doppler interrogation was performed of both carotid systems, with image documentation and velocity measurements. COMPARISON: None. FINDINGS: Stenosis calculations are based on SRU (Society of Radiologists in Ultrasound) criteria. Right side: Brachial blood pressure: 55/80 mm Hg. Common carotid artery peak systolic velocity: 85 cm/sec. Internal carotid artery peak systolic velocity: 75 cm/sec. Internal carotid artery end diastolic velocity: 23 cm/sec. External carotid artery peak systolic velocity: 83 cm/sec. ICA/CCA peak systolic ratio: 0.9 . [place] scale imaging description: Minimal plaque Percent internal carotid artery stenosis: Less than 50% . Vertebral artery: Flow direction is antegrade. Left side: Brachial blood pressure: 161/87 mm Hg. Common carotid artery peak systolic velocity: 78 cm/sec. Internal carotid artery peak systolic velocity: 88 cm/sec. Internal carotid artery end diastolic velocity: 30 cm/sec. External carotid artery peak systolic velocity: 65 cm/sec. ICA/CCA peak systolic ratio: 1.1 . [place]ylton scale imaging description: Minimal plaque Percent internal carotid artery stenosis: Less than 50% . Vertebral artery: Flow direction is antegrade. IMPRESSION: Less than 50% bilateral internal carotid artery stenosis. Dictated by: Escobar Torres [facility] Interpreted: Sandor Hunt MD on 02/19/2022 at 15:57 Transcribed by: SHANAE on 02/19/2022 at 15:58 Approved by: Sandor Hunt M.D. on 02/19/2022 at 17:08
== END ==
PROVIDERS: PCP Internal Medicine; Referring Provider Internal Medicine; Visit Provider Internal Medicine
DX: H34.8120 Central retinal vein occlusion, left eye, with macular edema (principal); I65.23 Occlusion and stenosis of bilateral carotid arteries
CPT/HCPCS: 93880

== ENCOUNTER → 2022-06-08 13:36 | Outpatient (CLI) | payer MEDICARE, MEDICAID, SELFPAY ==
--- NOTE | 2022-06-08 13:37 | DI.RAD.S_ITS ---
PROCEDURE: XR LUMBAR SPINE MIN 4V INDICATIONS: LOW BACK PAIN TECHNIQUE: 5 views of the lumbar spine were acquired, including bilateral oblique views. COMPARISON: None. FINDINGS: Bones: 5 nonrib-bearing vertebrae are present. There is mild, approximately 7 millimeters of L4-L5 anterolisthesis, approximately 6 millimeters of L5-S1 anterolisthesis and approximately 4 millimeters of L3-L4 anterolisthesis. No vertebral body compression fractures. Schmorl's node in superior endplate of the L2 vertebral body. No suspicious bony lesions. Severe L4-L5 degenerative disc changes. Moderate L3-L4 and L5-S1 degenerative disc changes. Mild L1-L2 and L2-L3 degenerative disc changes. Moderate L3-L4, L4-L5 and L5-S1 facet arthropathy. Mild L1-L2 and L2-L3 facet arthropathy. Partially visualized left femur fixation hardware. Soft tissues: Overlying bowel gas pattern is normal. No suspicious soft tissue calcifications. Cholecystectomy clips. Oblique images: No pars defects. IMPRESSION: 1. Multilevel degenerative disc disease. 2. Multilevel facet arthropathy. 3. No fracture. No acute osseous lesion. If symptoms and/or clinical suspicion for pathology persists, evaluation with MRI should be considered for further assessment. Dictated by: Neema Coyle MD, PhD on 06/08/2022 at 15:32 Approved by: Neema Coyle MD, PhD on 06/08/2022 at 15:34
== END ==
PROVIDERS: PCP Internal Medicine; Referring Provider Anesthesiology; Visit Provider Anesthesiology
DX: M51.36 Other intervertebral disc degeneration, lumbar region (principal); M47.816 Spondylosis without myelopathy or radiculopathy, lumbar region; M47.817 Spondylosis without myelopathy or radiculopathy, lumbosacral region; M54.50 Low back pain, unspecified; M53.3 Sacrococcygeal disorders, not elsewhere classified; G89.29 Other chronic pain
CPT/HCPCS: 72110; 99214

== ENCOUNTER 2022-06-17 14:16 | Outpatient (CLI) | payer MEDICARE, MEDICAID, SELFPAY ==
--- NOTE | 2022-06-17 14:18 | DI.RAD.S_ITS ---
PROCEDURE: PAIN SI JOINT INJECTION OSMANI INDICATIONS: SACROILIAC DISORDER COMPARISON: [facility], CR, XR LUMBAR SPINE MIN 4V, 06/08/2022, 13:35. FINDINGS: Fluoroscopic spot filming was performed to verify placement of spinal needles involving both sacroiliac joints. Appropriate location(s) of the needle tip(s) was confirmed by injection of iodinated contrast. IMPRESSION: Intraprocedural examination within normal limits. Dictated by: Anant Peña M.D. on 06/17/2022 at 17:11 Approved by: Anant Peña M.D. on 06/17/2022 at 17:12
[2022-06-17 14:45] VITALS: BP 144/75; PULSE 52; RESP 20; TEMP 36.6; O2SAT 99
[2022-06-17 15:05] VITALS: BP 181/84; PULSE 52; RESP 18; O2SAT 97
[2022-06-17 15:10] VITALS: BP 171/81; PULSE 52; RESP 17; O2SAT 98
[2022-06-17] MEDS: IOPAMIDOL 15 ML VIAL 3 ML INJ (15:11)
[2022-06-17] MEDS: DEXAMETHASONE 10 MG/ML VIAL 20 MG INJ (15:11)
[2022-06-17] MEDS: BUPIVACAINE 0.5% (PF) 30 ML VIAL 5 ML INJ (15:12)
[2022-06-17 15:15] VITALS: BP 169/79; PULSE 51; RESP 17; O2SAT 98
[2022-06-17 15:19] VITALS: BP 168/79; PULSE 52; RESP 18; O2SAT 98
[2022-06-17 15:24] VITALS: BP 163/88; PULSE 60; RESP 18; O2SAT 99
--- NOTE | 2022-06-17 16:55 | P.PCN_ITS ---
Date/Time/Diagnoses Date of procedure: 06/17/22 Time of procedure: 15:00 Procedure Notes Physician: Damien Bravo Total Fluoroscopy time (seconds): 25 Total sedation minutes: 0 Procedure in detail & Post-procedure care: Bilateral Sacroiliac Joint Injection Indications: Gela is referred by Dr. Yanes for treatment of SI joint dysfunction with low back/buttock pain. Preoperative diagnosis: Bilateral SI joint dysfunction Postoperative diagnosis: Same Focused Examination: Ax3 Mood and affect are normal Vital Signs: VSS ASA: 2 Consent: Following review of allergies and potential side effects/complications, including, but not necessarily limited to, infection, allergic reaction, local tissue breakdown, stroke, temporary or permanent nerve injury, paralysis, and possible , the patient indicated that they understood and agreed to proceed.? An informed consent document was signed by the patient, witnessed by a nurse and placed in the patient's chart.? Additionally, other treatment options including medications and physical therapy were reviewed with the patient. All questions were answered. Site was then marked. Anesthesia: Local Position: Prone Monitoring: NIBP, Pulse oximetry, 3 lead EKG Needle used: 22 ga, 3.5 inch spinal Contrast: 2 mL Isovue M-300 Injectate: 10 mg dexamethasone with 2 mL 0.5% Bupivacaine per side Technique: The skin was prepped with chloraprep and then draped in a sterile fashion. Time out was performed as per protocol. Oxygen applied via NC. Skin and subcutaneous structures of the needle entry site was then infiltrated with 5 mL of lidocaine 1%. Under AP and lateral fluoroscopic control, the spinal needle wa s guided into the right sacroiliac joint. 1 mL contrast was injected and was consistent with intra-articular placement. There was no evidence for intravascular uptake. After negative aspiration, the above-mentioned injectate was then slowly administered and the needle withdrawn. The patient expressed no unusual discomfort or paresthesias during the injection. Skin and subcutaneous structures of the needle entry site on the left side was then infiltrated with 5 mL of lidocaine 1%. Under AP and lateral fluoroscopic control, the spinal needle was guided into the left sacroiliac joint. 1 mL cont rast was injected and was consistent with intra-articular placement. There was no evidence for intravascular uptake. After negative aspiration, the above- mentioned injectate was then slowly administered and the needle withdrawn. The patient expressed no unusual discomfort or paresthesias during the injection. Band-Aids applied to injection sites. EBL: less than 1 ml Complications: None Post Procedure: Patient was taken to the recovery and monitored. The patient was provided a Pain Log to continue to record the patient's response to the target- specific procedure prior to the patient's follow-up visit with the referring physician. Patient was stable upon discharge. Detailed post procedure instructions were provided. Patient was asked to call in the event of worsening pain, fever, weakness, numbness or bladder or bowel incontinence.
== END 2022-06-17 15:37 | disposition home or self-care (01) ==
LOC: RAD 14:17
PROVIDERS: PCP Internal Medicine; Referring Provider Anesthesiology; Visit Provider Anesthesiology
DX: M53.3 Sacrococcygeal disorders, not elsewhere classified (principal)
CPT/HCPCS: 27096; J1030; J1100

== ENCOUNTER → 2022-08-21 15:20 | Outpatient (CLI) | payer MEDICARE, MEDICAID, SELFPAY ==
--- NOTE | 2022-08-21 15:23 | DI.MRI.S_ITS ---
PROCEDURE: MR LUMBAR SPINE WO CON INDICATIONS: Chronic LBP TECHNIQUE: Noncontrast sagittal T1 spin echo and T2 fast echo, sagittal STIR, and T2 fast spin echo through the lumbar spine. In cases with scoliosis, additional coronal T2 fast spin echo may be performed. COMPARISON: [facility], MR, L-SPINE WITHOUT CONTRAST, 11/17/2012, 14:36. FINDINGS: Image quality: Excellent. Alignment and Curvature: There is slight rightward curvature of the lumbar spine. There is trace retrolisthesis of L1 on L2, trace anterolisthesis of L3 on L4, L4 on L5. Bone Marrow: Marrow is of normal overall signal. Moderate reactive endplate changes are present at L4-5, mild to moderate L3-4, L5-S1, minimal to mild T11-12, L2-3. No acute vertebral body compression fractures. Spinal Cord: Conus medullaris terminates at the L1 level. Visualized cord demonstrates normal signal and size. 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 Paraspinous Soft Tissues: No paravertebral masses. Simple left renal cyst is present. Moderate to severe disc desiccation is present throughout the lumbar spine most severe at L3-4 and L4-5. T12-L1: No disc bulge, spinal stenosis or foraminal narrowing. No interval change. L1-L2: No disc bulge, spinal stenosis or foraminal narrowing. Facet and ligamentum flavum hypertrophy are present. No interval change. L2-L3: Mild disc bulge with slnc-jz-laisjwmv spinal stenosis, slightly progressive. Mild right and moderate left foraminal narrowing with facet and ligamentum flavum hypertrophy, unchanged. L3-L4: Mild disc bulge with moderate spinal stenosis, progressive compared to prior exam. Mild bilateral foraminal narrowing with facet and ligamentum flavum hypertrophy, unchanged. L4-L5: Mild disc bulge with severe spinal stenosis and canal compression slightly progressive. Moderate bilateral foraminal narrowing with facet and ligamentum flavum hypertrophy, unchanged. L5-S1: Mild disc bulge without spinal stenosis. Moderate bilateral foraminal narrowing, right greater than left, unchanged. Facet hypertrophy is present. IMPRESSION: Multilevel degenerative changes with areas of progression as above. Multilevel spinal stenosis remaining most severe at L4-5 secondary to disc bulge with contributing effect of facet/ligamentum flavum arthropathy. Multilevel foraminal narrowing most severe at L4-5 and L5-S1 secondary to facet arthropathy. No visualized nerve root compression. Dictated by: Paulina Sawyer M.D. on 08/24/2022 at 11:24 Approved by: Paulina Sawyer M.D. on 08/24/2022 at 11:56
== END ==
PROVIDERS: PCP Internal Medicine; Referring Provider Anesthesiology; Visit Provider Anesthesiology
DX: M53.3 Sacrococcygeal disorders, not elsewhere classified (principal); M54.50 Low back pain, unspecified; M43.06 Spondylolysis, lumbar region; M48.061 Spinal stenosis, lumbar region without neurogenic claudication; M51.36 Other intervertebral disc degeneration, lumbar region; M48.07 Spinal stenosis, lumbosacral region
CPT/HCPCS: 72148

== ENCOUNTER → 2022-09-03 15:55 | Outpatient (CLI) | payer MEDICARE, MEDICAID, SELFPAY ==
--- NOTE | 2022-09-03 15:57 | DI.RAD.S_ITS ---
PROCEDURE: XR CERVICAL SPINE 4V OR 5V INDICATIONS: Cervicalgia TECHNIQUE: 5 views of the cervical spine acquired. COMPARISON: [facility], , CERVICAL SPINE 2 OR 3 VIEWS, 04/11/2013, 13:31. FINDINGS: Bones: No fractures or dislocations to the C7 level. Severe multilevel degenerative changes with disc height loss, endplate spurring, and facet arthropathy. Mild-moderate multilevel bony foraminal narrowing on oblique views. No definite cervical spine fracture identified. Soft tissues: No prevertebral soft tissue swelling. IMPRESSION: Multilevel degenerative changes of the cervical spine. Dictated by: Sandor Hunt M.D. on 09/03/2022 at 16:55 Approved by: Sandor Hunt M.D. on 09/03/2022 at 17:00
== END ==
PROVIDERS: PCP Internal Medicine; Referring Provider Anesthesiology; Visit Provider Anesthesiology
DX: M54.2 Cervicalgia (principal); M47.812 Spondylosis without myelopathy or radiculopathy, cervical region
CPT/HCPCS: 72050

== ENCOUNTER → 2022-09-17 15:35 | Outpatient (CLI) | payer MEDICARE, MEDICAID, SELFPAY ==
--- NOTE | 2022-09-17 15:36 | DI.MRI.S_ITS ---
PROCEDURE: MR CERVICAL SPINE WO CON INDICATIONS: Cervical radiculopathy TECHNIQUE: Noncontrast sagittal T1 spin echo and T2 fast spin echo, sagittal STIR, foraminal oblique sagittal T2 fast spin echo, and axial gradient echo or T2 fast spin echo through the cervical spine. COMPARISON: [facility], MR, MR CERVICAL SPINE WO CON, 09/02/2018, 13:18. FINDINGS: Image quality: Good Alignment: There is straightening of normal cervical lordosis. Marrow: Modic changes. Nonspecific lower expected signal on T1 weighted images, could be seen with anemia or smoking or other hematologic process. No focal lesion. Multilevel disc desiccation and height loss. Cord: No myelopathic cord signal Soft tissues: No pathologic prevertebral soft tissue swelling. Specific levels: C2-C3: No stenosis. C3-C4: Tiny posterior disc osteophyte complex. There is uncovertebral and facet arthropathy. Moderate left neural foraminal narrowing, secondary to a protruding osteophyte. C4-C5: Small posterior disc osteophyte complex. Facet and uncovertebral arthropathy, worse on the right. Moderate to severe right neural foraminal narrowing. Ligamentum hypertrophy. C5-C6: Moderate posterior disc osteophyte complex. Uncovertebral and facet arthropathy. Tbfg-hu-xgvsjoie central narrowing, contacting the ventral cord. Moderate right and chnw-gk-vcnuojoi left neural foraminal narrowing. Ligamentum hypertrophy. C6-C7: Small annular fissure. Posterior disc osteophyte complex. Uncovertebral and facet arthropathy. Gauq-gf-oficjruc central narrowing, with the disc osteophyte contacting the left francoise cord. Mild right and moderate left neural foraminal narrowing. C7-T1: Posterior disc osteophyte complex and uncovertebral and facet arthropathy. Mild bilateral neural foraminal narrowing. The above findings are slightly progressed compared to 2019. IMPRESSION: Spondylotic changes as above, slightly progressed compared to 2019. Dictated by: Colt Villalobos M.D. on 09/17/2022 at 16:45 Approved by: Colt Villalobos M.D. on 09/17/2022 at 16:52
== END ==
PROVIDERS: PCP Internal Medicine; Referring Provider Anesthesiology; Visit Provider Anesthesiology
DX: M47.22 Other spondylosis with radiculopathy, cervical region; M54.2 Cervicalgia
CPT/HCPCS: 72141

== ENCOUNTER 2022-10-13 07:33 | Outpatient (CLI) | payer MEDICARE, MEDICAID, SELFPAY ==
--- NOTE | 2022-10-13 07:55 | DI.RAD.S_ITS ---
PROCEDURE: PAIN L INTERLAMINAR/CAUDAL INJ INDICATIONS: SPONDYLOSIS COMPARISON: [facility], MR, MR LUMBAR SPINE WO CON, 08/21/2022, 15:34. FINDINGS: Fluoroscopic spot filming was performed to verify placement of a spinal needle at the L4-L5 level, as labeled on the films. Appropriate location of the needle tip was confirmed by injection of iodinated contrast. IMPRESSION: Intraprocedural examination within normal limits. Dictated by: Anant Peña M.D. on 10/13/2022 at 17:35 Approved by: Anant Peña M.D. on 10/13/2022 at 17:36
[2022-10-13 08:00] VITALS: BP 185/80; PULSE 49; RESP 12; TEMP 36.3; O2SAT 99
[2022-10-13 08:20] VITALS: BP 195/84; PULSE 52; RESP 14; O2SAT 100
[2022-10-13] MEDS: DEXAMETHASONE 10 MG/ML VIAL INJ (08:24)
[2022-10-13] MEDS: IOPAMIDOL 15 ML VIAL 3 ML INJ (08:24)
[2022-10-13 08:25] VITALS: BP 189/71; PULSE 49; RESP 14; O2SAT 100
[2022-10-13 08:30] VITALS: BP 207/91; PULSE 47; RESP 16; O2SAT 100
--- NOTE | 2022-10-13 08:36 | P.PCN_ITS ---
Date/Time/Diagnoses Date of procedure: 10/13/22 Time of procedure: 08:00 Procedure Notes Physician: Damien Bravo Total Fluoroscopy time (seconds): 18 Total sedation minutes: 0 Procedure in detail & Post-procedure care: L4-5 Interlaminar Epidural Steroid Injection Indications: Gela is presenting for treatment of lumbar radiculopathy with low back and leg pain. Preoperative diagnosis: Lumbar radiculopathy Postoperative diagnosis: Same Focused Examination: Ax3 Mood and affect are normal Vital Signs: VSS Consent: Following review of allergies and potential side effects/complications, including, but not necessarily limited to, infection, allergic reaction, local tissue breakdown, stroke, temporary or permanent nerve injury, paralysis, and possible , the patient indicated that they understood and agreed to proceed.? An informed consent document was signed by the patient, witnessed by a nurse and placed in the patient's chart.? Additionally, other treatment options including medications and physical therapy were reviewed with the patient. All questions were answered. Site was then marked. Anesthesia: local Position: Prone Monitoring: NIBP, Pulse oximetry, 3 lead EKG Needle used: 18 G 3.5? Tuohy Contrast: Isovue 300M Injectate: Dexamethasone 10 mg with 1% lidocaine 2 mL Technique: The skin was prepped with chloraprep and then draped in a sterile fashion. Time out was performed as per protocol. Oxygen applied via NC. Skin and subcutaneous structures of the needle entry site was then infiltrated with 3 mL of lidocaine 1%. Under AP, lateral and contralateral oblique fluoroscopic control, the Tuohy needle was guided into the L4-5 epidural space. The space was accessed with loss of resistance technique. Isovue 300M was then injected and the spread was consistent with the epidural space. There was no evidence for intravascular or intrathecal uptake. After negative aspiration, the above- mentioned injectate was then slowly administered and the needle withdrawn. The patient expressed no unusual discomfort or paresthesias during the injection. Band-Aids applied to injection sites. EBL: less than 1 ml Complications: None Post Procedure: Patient was taken to the recovery and monitored. The patient was provided a Pain Log to continue to record the patient's response to the target- specific procedure prior to the patient's follow-up visit with the referring physician. Patient was stable upon discharge. Detailed post procedure instructions were provided. Patient was asked to call in the event of worsening pain, fever, weakness, numbness or bladder or bowel incontinence.
[2022-10-13 08:37] VITALS: BP 190/92; PULSE 50; RESP 12; O2SAT 99
== END 2022-10-13 08:45 | disposition home or self-care (01) ==
PROVIDERS: PCP Internal Medicine; Referring Provider Anesthesiology; Visit Provider Anesthesiology
DX: M54.16 Radiculopathy, lumbar region (principal)
CPT/HCPCS: 62323; J1100

== ENCOUNTER 2022-12-08 13:26 | Outpatient (CLI) | payer MEDICARE, MEDICAID, SELFPAY ==
[2022-12-08] VITALS (7 sets, daily range): BP systolic 156–179; BP diastolic 69–77; PULSE 51–55; RESP 14–22; TEMP 36.3; O2SAT 93–98
--- NOTE | 2022-12-08 13:28 | DI.RAD.S_ITS ---
PROCEDURE: PAIN L/S FACET INJ/BLK 1ST OSMANI INDICATIONS: SPONDYLOSIS COMPARISON: [facility], XA, PAIN L INTERLAMINAR/CAUDAL INJ, 10/13/2022, 8:21. FINDINGS: Fluoroscopic spot filming was performed to verify placement of spinal needles on both sides at the L3, L4, and L5 levels, as labeled on the films. Appropriate location of the needle tips was confirmed by injection of iodinated contrast. IMPRESSION: Intraprocedural examination demonstrating appropriate positions of the needles. Dictated by: Anant Peña M.D. on 12/08/2022 at 17:38 Approved by: Anant Peña M.D. on 12/08/2022 at 17:39
[2022-12-08] MEDS: MIDAZOLAM 2 MG/2 ML VIAL 1 MG IV (14:15)
[2022-12-08] MEDS: BUPIVACAINE 0.5% (PF) 10 ML VIAL 5 ML INJ (14:22)
[2022-12-08] MEDS: IOPAMIDOL 15 ML VIAL 3 ML INJ (14:22)
--- NOTE | 2022-12-08 16:39 | P.PCN_ITS ---
Date/Time/Diagnoses Date of procedure: 12/08/22 Time of procedure: 14:00 Procedure Notes Physician: Damien Bravo Total Fluoroscopy time (seconds): 19 Total sedation minutes: 18 Procedure in detail & Post-procedure care: Bilateral L3, 4, 5 Lumbar Medial Branch Blocks Indications: Pat is presenting for treatment of lumbar spondylosis with low back pain. Preoperative diagnosis: Bilateral lumbar spondylosis Postoperative diagnosis: Same Pre-procedure History: Patient demonstrates today moderate to severe non- radicular back pain without neurologic deficit aggravated by hyperextension yes Back pain greater than leg pain? yes Patient today has tenderness over the suspected joint(s) yes History of post-traumatic injury? F no Hypertrophic arthropathy yes Back pain associated with suspected motion segment instability, hypermobility or pseudoarthrosis no Pre-testing pain score (VAS): 8/10 Focused Examination: Ax3 Mood and affect are normal Vital Signs: VSS ASA: 2 Consent: Following review of allergies and potential side effects/complications, including, but not necessarily limited to, infection, allergic reaction, local tissue breakdown, stroke, temporary or permanent nerve injury, paralysis, and possible , the patient indicated that they understood and agreed to proceed.? An informed consent document was signed by the patient, witnessed by a nurse and placed in the patient's chart.? Additionally, other treatment options including medications and physical therapy were reviewed with the patient. All questions were answered. Site was then marked. Anesthesia: After review of previous anesthetic history and IV conscious sedation, the patient was deemed safe to proceed with today's procedure with IV conscious sedation. IV sedation was accomplished with midazolam 1 mg administered by the RN after order by Dr. Bravo. Sedation was titrated to patient comfort during the course of the procedure. Patient remained responsive to all verbal commands. Position: Prone Monitoring: NIBP, Pulse oximetry, 3 lead EKG Needle used: 22 ga 3.5 inch spinal needle Contrast: Isovue 300M Injectate: 0.5% bupivacaine 1 mL per site Procedure: The patient was brought into the procedure room and positioned into the prone position. Skin was prepped with a Chloraprep solution, allowed to air dry, and then draped in sterile fashion.? The right L4-5 and L5-S1 facet joints were visually identified with fluoroscopy. Lidocaine 1% was used to anesthetize the skin over each target destination with a 25ga needle. A 22 ga, 3.5 inch spinal needle was advanced to the location of the medial branch at the junction of the superior articular process and the transverse process at L4,5 and the base of the SAP of the sacrum using intermittent fluoroscopy in the AP view. Isovue 300M contrast 0.2ml was injected at each level outlining the medial borders for each level and the base of the SAP of the sacrum in the AP and lateral views. There was no evidence of vascular or intrathecal uptake. The above injectate was slowly injected at each target destination. The left L4-5 and L5-S1 facet joints were visually identified with fluoroscopy. Lidocaine 1% was used to anesthetize the skin over each target destination with a 25ga needle. A 22 ga, 3.5 inch spinal needle was advanced to the location of the medial branch at the junction of the superior articular process and the transverse process at L4,5 and the base of the SAP of the sacrum using intermittent fluoroscopy in the AP view. Isovue 300M contrast 0.2ml was injected at each level outlining the medial borders for each level and the base of the SAP of the sacrum in the AP and lateral views. There was no evidence of vascular or intrathecal uptake. The above injectate was slowly injected at each target destination. At the end of the procedure the needles were withdrawn and Band- Aids were applied for a dressing. Post Procedure: Patient was taken to the recovery and monitored. The patient was provided a Pain Log to continue to record the patient's response to the target- specific procedure prior to the patient's follow-up visit with the referring physician. Patient was stable upon discharge. Detailed post procedure instructions were provided. Patient was asked to call in the event of worsening pain, fever, weakness, numbness or bladder or bowel incontinence. Postoperatively, today patient demonstrates the following changes with hyperextension and with tenderness over the suspected joint(s). Provacative testing using the Trejo's facet loading test Right side Left side Directly before the block ?VAS (0-10) = 8/10 VAS (0-10) = 8/10 5 minutes after the block VAS (0-10) = 4/10 VAS (0-10) = 4/10 Percentage relief obtained with this diagnostic block 50% 50% Any improved physical functioning directly after the blocks? Range of motion Based on the medial branches blocked today, if the patient meets insurance criteria for radiofrequency, the treatment should result in the denervation of the bilateral L4-5 and L5-S1 facet joint nerves. We would expect to denervate a total of 4 facets during the radiofrequency ablation.
== END 2022-12-08 14:51 | disposition home or self-care (01) ==
PROVIDERS: PCP Internal Medicine; Referring Provider Anesthesiology; Visit Provider Anesthesiology
DX: M47.816 Spondylosis without myelopathy or radiculopathy, lumbar region (principal)
CPT/HCPCS: 64493; 64494; 99152; J2250

== ENCOUNTER → 2023-02-08 17:01 | Outpatient (CLI) | payer MEDICARE, MEDICAID, SELFPAY ==
--- NOTE | 2023-02-08 17:08 | DI.RAD.S_ITS ---
PROCEDURE: XR HIP W PEL IF DONE OSMANI MIN 4V INDICATIONS: Bilateral hip pain TECHNIQUE: AP pelvis with lateral view(s) of the bilateral hip(s). COMPARISON: [facility], CR, XR HIP W PEL IF DONE LT 2V, 05/11/2021, 10:04. FINDINGS: Bones: Patient is status post prior internal fixation of left femoral neck with intramedullary marion and [address]. Increased lucency surrounding proximal portion of intramedullary marion and surgical screws in left femoral neck concerning for hardware loosening. Clinical correlation is recommended. Klzd-ba-vjtwlbhe bilateral hip joint osteoarthritic changes are seen with joint space narrowing, subchondral sclerosis and small marginal osteophyte formation. No evidence of avascular necrosis of femoral head. Pelvic ring appears intact. No suspicious bony lesions. Degenerative disc disease in visualized lower lumbar spine is seen. Soft tissues: The visualized bowel gas pattern is normal. No suspicious soft tissue calcifications. IMPRESSION: 1. Prior internal fixation of left femoral neck with surgical hardware in place. Increased radiolucencies surrounding hardware concerning for loosening. 2. Bilateral hip joint osteoarthritic changes. No acute fracture or dislocation. No evidence of avascular necrosis. 3. Degenerative disc disease in visualized lower lumbar spine. Dictated by: Christian Kearney M.D. on 02/09/2023 at 11:55 Approved by: Christian Kearney M.D. on 02/09/2023 at 11:57
--- NOTE | 2023-02-08 17:08 | DI.RAD.S_ITS ---
PROCEDURE: XR KNEE RT 3V INDICATIONS: Right knee pain TECHNIQUE: 3 views of the knee were acquired. COMPARISON: None. FINDINGS: Bones: No acute fracture or dislocation. Chronic appearing deformity involving proximal fibular shaft is seen. Moderate to severe tricompartmental osteoarthritis is seen most notably in lateral femoral tibial compartment. No patellar subluxation. No suspicious bony lesions. Soft tissues: Small suprapatellar joint effusion. No suspicious soft tissue calcifications. 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 No acute fracture or dislocation. Old proximal fibular shaft fracture. Small suprapatellar joint effusion. Dictated by: Christian Kearney M.D. on 02/09/2023 at 11:57 Approved by: Christian Kearney M.D. on 02/09/2023 at 12:03
== END ==
PROVIDERS: PCP Internal Medicine; Referring Provider Anesthesiology; Visit Provider Anesthesiology
DX: M17.11 Unilateral primary osteoarthritis, right knee (principal); M51.36 Other intervertebral disc degeneration, lumbar region; M25.551 Pain in right hip; M25.552 Pain in left hip; M25.561 Pain in right knee
CPT/HCPCS: 73522; 73562

== ENCOUNTER → 2023-05-23 16:17 | Outpatient (CLI) | payer MEDICARE, MEDICAID, SELFPAY ==
[2023-05-23 17:39] LABS: Add Manual Diff / Slide Review NO; Basophils Absolute Auto 100 /uL (0-100); Eosinophils Absolute Auto 200 /uL (0-450); Eosinophils Percent Auto 3.5 % (2-4); Hematocrit 36.3 % (36-46); Hemoglobin 12.1 g/dL (12.0-16.0); Lymphocytes Absolute Auto 1300 /uL (1100-4500); Lymphocytes Percent Auto 21.8 % (25-40); Mean Corpuscular HGB Conc 33.2 % (30-36); Mean Corpuscular Volume 93.3 fL (80-100); Monocytes Absolute Auto 800 /uL (0-900); Monocytes Percent Auto 13.8 % (3-14); Neutrophils Absolute Auto 3500 /uL (1500-7000); Neutrophils Percent Auto 59.9 % (50-75); Platelet Count 227 X10^3/uL (150-400); Red Blood Cell Count 3.89 X10^6/uL (4.0-5.2); Red Cell Distribution Width 13.8 % (11.6-14.8); White Blood Cell Count 5.9 X10^3/uL (4.5-11.0)
[2023-05-23 18:28] LABS: Alanine Aminotransferase 16 IU/L (<35); Albumin 4.4 g/dL (3.5-5.0); Albumin Globulin Ratio 1.2 (1.0-2.8); Alkaline Phosphatase 58 U/L (38-126); Aspartate Aminotransferase 30 IU/L (14-36); BUN Creatinine Ratio 25.3 (6-22); Bilirubin Total 0.9 mg/dL (0.2-1.3); Blood Urea Nitrogen 41 mg/dL (7-17); C-Reactive Protein Quant < 0.5 mg/dL (<1.0); Calcium 10.2 mg/dL (8.4-10.2); Carbon Dioxide 28 mmol/L (22-32); Chloride 105 mmol/L (98-107); Estimated Glomerular Filt Rate 32 mL/min (>60); Globulin 3.7 g/dL (1.7-4.1); Glucose 86 mg/dL (80-110); HEMOLYSIS < 15 (0-50); Potassium 3.9 mmol/L (3.4-5.1); Sodium 142 mmol/L (137-145); Total Protein 8.1 g/dL (6.3-8.2)
[2023-05-23 19:00] LABS: Erythrocyte Sedimentation Rate 20 MM/HR (0-20)
[2023-05-26 16:13] LABS: QuantiFERON Mitogen Value >10.00 IU/mL (.); QuantiFERON Nil Value 0.06 IU/mL (.); QuantiFERON TB Gold Plus Negative (Negative); QuantiFERON TB1 Ag Value 0.05 IU/mL (.); QuantiFERON TB2 Ag Value 0.05 IU/mL (.)
== END ==
LOC: LAB 16:19
PROVIDERS: PCP Internal Medicine; Referring Provider Physician Assistant Medical; Visit Provider Physician Assistant Medical
DX: M06.9 Rheumatoid arthritis, unspecified (principal)
CPT/HCPCS: 36415; 80053; 85025; 85651; 86140; 86480

== ENCOUNTER 2023-06-29 12:15 | Outpatient (CLI) | payer MEDICARE, MEDICAID, SELFPAY ==
[2023-06-29] VITALS (8 sets, daily range): BP systolic 144–189; BP diastolic 58–86; PULSE 54–67; RESP 12–20; TEMP 36.7; O2SAT 95–100
--- NOTE | 2023-06-29 12:49 | DI.RAD.S_ITS ---
PROCEDURE: PAIN L INTERLAMINAR/CAUDAL INJ INDICATIONS: RADICULOPATHY COMPARISON: [facility], XA, PAIN L INTERLAMINAR/CAUDAL INJ, 10/13/2022, 8:21. FINDINGS: Fluoroscopic spot filming was performed to verify placement of spinal needle at the L5-S1 level, as labeled on the films. Appropriate location of the needle tip was confirmed by injection of iodinated contrast. IMPRESSION: Intraprocedural examination demonstrates appropriate needle positioning. Approved by: Sandor Devi M.D. on 06/29/2023 at 20:58
[2023-06-29] MEDS: MIDAZOLAM 2 MG/2 ML VIAL 1 MG IV (13:20)
[2023-06-29] MEDS: iopamidoL 15 ML VIAL 3 ML INJ (13:24)
[2023-06-29] MEDS: DEXAMETHASONE 10 MG/ML VIAL INJ (13:24)
--- NOTE | 2023-06-29 16:26 | P.PCN_ITS ---
Date/Time/Diagnoses Date of procedure: 06/29/23 Time of procedure: 13:00 Procedure Notes Physician: Damien Bravo Total Fluoroscopy time (seconds): 13 Total sedation minutes: 10 Procedure in detail & Post-procedure care: L5-S1 Interlaminar Epidural Steroid Injection Indications: Pat is presenting for treatment of lumbar radiculopathy with low back and leg pain. Preoperative diagnosis: Lumbar radiculopathy Postoperative diagnosis: Same Focused Examination: Ax3 Mood and affect are normal Vital Signs: VSS ASA: 3 Consent: Following review of allergies and potential side effects/complications, including, but not necessarily limited to, infection, allergic reaction, local tissue breakdown, stroke, temporary or permanent nerve injury, paralysis, and possible , the patient indicated that they understood and agreed to proc eed.? An informed consent document was signed by the patient, witnessed by a nurse and placed in the patient's chart.? Additionally, other treatment options including medications and physical therapy were reviewed with the patient. All questions were answered. Site was then marked. Anesthesia: After review of previous anesthetic history and IV conscious sedation, the patient was deemed safe to proceed with today's procedure with IV conscious sedation. IV sedation was accomplished with midazolam 1 mg administered by the RN after order by Dr. Bravo. Sedation was titrated to patient comfort during the course of the procedure. Patient remained responsive to all verbal commands. Position: Prone Monitoring: NIBP, Pulse oximetry, 3 lead EKG Needle used: 18 G 3.5? Tuohy Contrast: Isovue 300M Injectate: Dexamethasone 10 mg with 1% lidocaine 2 mL Technique: The skin was prepped with chloraprep and then draped in a sterile fashion. Time out was performed as per protocol. Oxygen applied via NC. Skin and subcutaneous structures of the needle entry site was then infiltrated with 3 mL of lidocaine 1%. Under AP, lateral and contralateral oblique fluoroscopic control, the Tuohy needle was guided into the L5-S1 epidural space. The space was accessed with loss of resistance technique. Isovue 300M was then injected and the spread was consistent with the epidural space. There was no evidence for intravascular or intrathecal uptake. After negative aspiration, the above- mentioned injectate was then slowly administered and the needle withdrawn. The patient expressed no unusual discomfort or paresthesias during the injection. Band-Aids applied to injection sites. EBL: less than 1 ml Complications: None Post Procedure: Patient was taken to the recovery and monitored. The patient was provided a Pain Log to continue to record the patient's response to the target- specific procedure prior to the patient's follow-up visit with the referring physician. Patient was stable upon discharge. Detailed post procedure instructions were provided. Patient was asked to call in the event of worsening pain, fever, weakness, numbness or bladder or bowel incontinence.
== END 2023-06-29 13:55 | disposition home or self-care (01) ==
PROVIDERS: PCP Internal Medicine; Referring Provider Anesthesiology; Visit Provider Anesthesiology
DX: M54.16 Radiculopathy, lumbar region (principal)
CPT/HCPCS: 62323; 99152; J1100; J2250

== ENCOUNTER → 2023-09-15 17:18 | Outpatient (CLI) | payer MEDICARE, MEDICAID, SELFPAY | PROVIDERS: PCP Internal Medicine; Visit Provider Family Medicine | DX: R30.0 Dysuria (principal) | CPT/HCPCS: 87086 ==

== ENCOUNTER → 2023-09-26 13:31 | Outpatient (CLI) | payer MEDICARE, MEDICAID, SELFPAY ==
--- NOTE | 2023-09-26 13:34 | DI.ECHO.S_ITS ---
[place] +---------+ [facility] : : [address] : : [place] : : [id number] : : Phone: [phone] Echocardiogram Report + + :Name: FLORENTIN BUCK Study Date: 09/26/2023 Height: 62 in : :[facility] ReadingLocation: Weight: 126 lb : : Gender: Female BSA: 1.6 m2 : :: 1940 Age: 83 yrs BP: 180/98 mmHg: :Reason For Study: AORTIC INSUFFICIENCY : :Ordering Physician: GAEL, : :KATELYNN Performed By: Taylor Winters : :Referring: KATELYNN SIDHU : + + Interpretation Summary 1) Normal left ventricular thickness, size, and systolic function (EF 60-65%). 2) Normal right ventricular size with low normal function. 3) Mild aortic regurgitation present. 4) The ascending aorta is mildly enlarged at 4.0cm. 5) Trace/physiological pericardial effusion present. 6) Hypertension present during the study (BP 180/98mmHg). 7) Compared to the Echo done 11/24/2020, no significant change. Procedure: A two-dimensional transthoracic echocardiogram with color flow and Doppler was performed. The study quality was technically adequate. Comparison is made with the echocardiogram of 11/24/2020. The patient was in sinus bradycardia with heart rates between 45-51 bpm during the exam. Left Ventricle: The left ventricle is normal in size and wall thickness. The ejection fraction is estimated to be 60-65%. Left ventricular systolic function appears normal without focal wall motion abnormalities. Right Ventricle: The right ventricle is normal in size and function. Atria: The left atrium is moderately dilated. Right atrial size is normal. There is no Doppler evidence for an interatrial shunt. Mitral Valve: The mitral valve is normal in structure and function. There is mild mitral regurgitation. Aortic Valve: The aortic valve is trileaflet. The aortic valve opens well. There is no aortic valve stenosis. There is mild aortic regurgitation. Tricuspid Valve: The tricuspid valve is normal in structure and function. There is mild tricuspid regurgitation. The right ventricular systolic pressure is estimated to be at least 28 mmHg based on an estimated right atrial pressure of 3 mm Hg. Pulmonic Valve: The pulmonic valve leaflets are thin and pliable; valve motion is normal. There is mild pulmonic regurgitation. Great Vessels: The aortic root is normal size. The ascending aorta is mildly enlarged. The IVC is of normal diameter and collapses greater than 50% with a sniff. This suggests a low right atrial pressure of 3 mm Hg. Pericardium/ Pleura There is a trivial pericardial effusion noted. There is no pleural effusion. MMode/2D Measurements & Calculations LVIDd: 4.7 cm LVOT diam: 2.0 cm LVIDs: 3.1 cm Ao root diam: 3.2 cm FS: 33.8 % asc Aorta Diam: 4.0 cm IVSd: 0.91 cm Ao Arch Diam (Prox Trans): 2.6 cm LVPWd: 0.75 cm LV astorga. diameter/BSA (cm/m^2): 3.0 LV sys. diameter/BSA (cm/m^2): 2.0 LA A2 area: 22.1 cm2 RA long axis: 5.2 cm LA A4 area: 17.8 cm2 RA area: 15.7 cm2 LA length (vol): 5.6 cm RA vol: 40.1 ml LA vol: 59.7 ml RA : 25.5 ml/m2 LA vol index: 38.0 ml/m2 IVC diam: 2.0 cm RVD1 (basal): 3.6 cm RVD2 (mid): 2.7 cm TAPSE: 1.7 cm Doppler Measurements & Calculations Ao V2 max: 152.5 cm/sec LVOT Max Asif: 104.1 cm/sec Ao V2 mean: 104.3 cm/sec LV V1 max P.3 mmHg Ao max P.3 mmHg LV V1 VTI: 23.0 cm Ao mean P.9 mmHg UMESH(I,D): 2.0 cm2 Ao V2 VTI: 34.3 cm UMESH(V,D): 2.1 cm2 sev ratio: 0.67 UMESH indexed to BSA (cm^2/m^2): 1.3 AI P1/2t: 896.1 msec AI dec slope: 148.4 cm/sec2 MV E max asif: 58.4 cm/sec TR max asif: 247.8 cm/sec MV A max asif: 78.6 cm/sec TR max P.6 mmHg MV E/A: 0.74 PA V2 max: 76.3 cm/sec Med Peak E' Asif: 4.4 cm/sec PA V2 mean: 52.0 cm/sec E/E' med: 13.1 PA mean P.2 mmHg Lat Peak E' Asif: 5.8 cm/sec PA pr(Accel): -27.2 mmHg E/E' lat: 10.1 E/e' average: 11.6 MV dec time: 0.51 sec SV(LVOT): 69.6 ml Reading Physician:04:26 PM
[2023-09-26 15:17] LABS: BUN Creatinine Ratio 25.9 (6-22); Blood Urea Nitrogen 29 mg/dL (7-17); Calcium 9.4 mg/dL (8.4-10.2); Carbon Dioxide 30 mmol/L (22-32); Chloride 108 mmol/L (98-107); Estimated Glomerular Filt Rate 49 mL/min (>60); Glucose 83 mg/dL (80-110); HEMOLYSIS < 15 (0-50); Potassium 4.3 mmol/L (3.4-5.1); Sodium 142 mmol/L (137-145)
== END ==
PROVIDERS: PCP Internal Medicine; Referring Provider Internal Medicine Cardiovascular Disease; Visit Provider Internal Medicine Cardiovascular Disease
DX: I08.3 Combined rheumatic disorders of mitral, aortic and tricuspid valves (principal); I77.89 Other specified disorders of arteries and arterioles; I10 Essential (primary) hypertension
CPT/HCPCS: 36415; 80048; 93306

== ENCOUNTER 2024-02-02 14:17 | Outpatient (CLI) | payer MEDICARE, MEDICAID, SELFPAY ==
[2024-02-02] VITALS (9 sets, daily range): BP systolic 144–185; BP diastolic 65–90; PULSE 52–61; RESP 12–17; TEMP 37.1; O2SAT 98–100
--- NOTE | 2024-02-02 14:25 | DI.RAD.S_ITS ---
PROCEDURE: PAIN L INTERLAMINAR/CAUDAL INJ INDICATIONS: L4-5 translaminar MARK COMPARISON: [facility], , PAIN L INTERLAMINAR/CAUDAL INJ, 06/29/2023, 13:23. FINDINGS: Fluoroscopic spot filming was performed to verify placement of spinal needle at the L4-5 level, as labeled on the films. Appropriate location of the needle tip was confirmed by injection of iodinated contrast. IMPRESSION: Intraprocedural examination demonstrates appropriate needle positioning. Approved by: Sandor Devi M.D. on 02/02/2024 at 19:56
[2024-02-02] MEDS: MIDAZOLAM 2 MG/2 ML VIAL 1 MG IV (15:48)
[2024-02-02] MEDS: BETAMETHASONE 30 MG/5 ML MDV 12 MG INJ (15:51)
[2024-02-02] MEDS: DEXAMETHASONE 10 MG/ML VIAL INJ (15:51)
[2024-02-02] MEDS: iopamidoL 15 ML VIAL 3 ML INJ (15:51)
[2024-02-02] MEDS: BUPIVACAINE 0.25% (PF) VIAL 2 ML INJ (15:52)
--- NOTE | 2024-02-02 16:10 | P.PCN_ITS ---
Date/Time/Diagnoses Date of procedure: 02/02/24 Time of procedure: 16:10 Pre-procedure diagnosis: 1. HNP WITH RADICULAR FEATURES, 2. MULTILEVEL CENTRAL STENOSIS, Post-procedure diagnosis: same Procedure Notes Procedure: 1. FLUOROSCOPICALLY GUIDED CONTRAST CONTROLLED INTERLAMINAR EPIDURAL STEROID INJECTION -L4/5 Indications: Gela is referred by Dr. Yanes for treatment of Bilateral Foraminal Stenosis R>L LE symptoms. Physician: Sánchez Pizarro Total Fluoroscopy time (seconds): 11 Total sedation minutes: 12 Complications: none Procedure in detail & Post-procedure care: FINDINGS Multilevel Central Spinal Stenosis with Nerve Root Compression DESCRIPTION OF PROCEDURE Fluoroscopically guided, contrast-controlled L4/5 translaminar epidural steroid injection. Following review of allergy and review of potential side effects and complications, including, but not necessarily limited to, infection, allergic reaction, local tissue breakdown, temporary as well as permanent nerve injury, paralysis, stroke and possible , the patient indicated that the patient understood and agreed to proceed. An informed consent document was signed by the patient, witnessed by a nurse, and placed in the patient's chart. Additionally, other treatment options including modalities, medications, and physical therapy were reviewed with the patient. After review of previous anaesthesic history and IV conscious sedation the patient was deemed safe to proceed with today?s procedure with IV conscious sedation as ASA class II designation. Safety time-out was performed to confirm patient ID, procedure to be performed and site of procedure. IV sedation was accomplished with a combination of 2mg of Versed was administered by the RN after DO order, titrated to patient comfort during the course of the procedure while the patient remained responsive to all verbal commands In the prone position, following sterile prep and drape of the lumbar region, the L4/5 translaminar space was identified fluoroscopically. The skin was anesthetized via a 25-gauge, 1.5inch needle with 1% lidocaine solution. At this point, a 22-gauge short bevel spinal needle was atraumatically introduced and advanced under fluoroscopic guidance into the region of the L4/5 translaminar space. Depth was confirmed on lateral view. Radiological data, including multiple fluoroscopic views of the lumbar spine, reveal a spinal needle at the L4/5 translaminar space. Lateral views then show placement of the needle in the epidural space. Subsequent views show contrast material flowing superiorly and inferiorly in the epidural space. No vascular or intrathecal uptake is observed. At this point, using loss of resistance technique with saline and air, the epidural space was entered. This was confirmed following negative aspiration with injection of approximately 1.5cc of Isovue 200, showing excellent epidural flow without vascular or intrathecal uptake. At this point, 1cc of 1% lidocaine solution combined with 2cc or 10mg of dexamethasone and 6mg betamethasone was injected without incident. The patient tolerated the procedure well without signs or symptoms of complications prior to transfer to the recovery area continued monitoring without incident. The patient was then transferred to the recovery area where they were observed for an appropriate period of time after the injection. The patient reported a VAS score of 6 prior to the procedure and a post- procedure VAS of 0. POST OP INSTRUCTIONS The patient was provided a Pain Log to continue to record their response to the target-specific procedure prior to follow-up visit with their referring physician. Additionally, specific post-injection care instructions and a contact number to our office were provided if concerns arise regarding possible complications associated with the procedure are suspected.
== END 2024-02-02 16:35 | disposition home or self-care (01) ==
PROVIDERS: PCP Internal Medicine; Referring Provider Physical Medicine & Rehabilitation; Visit Provider Physical Medicine & Rehabilitation
DX: M51.16 Intervertebral disc disorders with radiculopathy, lumbar region (principal); M48.061 Spinal stenosis, lumbar region without neurogenic claudication
CPT/HCPCS: 62323; 99152; J0702; J1100; J2250; J3490

== ENCOUNTER → 2024-02-27 14:53 | Outpatient (CLI) | payer MEDICARE, MEDICAID, SELFPAY ==
--- NOTE | 2024-02-27 | DI.MG.S_ITS ---
BILATERAL DIGITAL SCREENING MAMMOGRAM 3D/2D WITH CAD: 02/27/2024 CLINICAL: Routine screening. Comparison is made to exams dated: 01/08/2022 mammogram, 07/03/2020 mammogram, and 01/12/2019 mammogram - [facility]. The breasts are heterogeneously dense, which may obscure small masses (category c / 51-75% glandular tissue). Current study was also evaluated with a Computer Aided Detection (CAD) system. There are benign post operative findings in the right breast. No significant masses, calcifications, or other findings are seen in either breast. There has been no significant interval change. IMPRESSION: BENIGN There is no mammographic evidence of malignancy. A 1 year screening mammogram is recommended. Based on the Tyrer Cuzick model (a risk assessment model) the patient's lifetime risk is 0.6% and her 10 year risk is 0.0%. According to the ACR, ACS, and NCCN guidelines, an annual breast MRI exam along with mammogram is recommended if the patient's lifetime risk is 20% or greater. This exam was interpreted at Station ID: [id number]. NOTE: For mammograms, a report in lay terms will be sent to the patient. Approximately 15% of breast malignancies will not be visualized mammographically. In the management of a palpable breast mass, a negative mammogram must not discourage biopsy of a clinically suspicious lesion. Electronically Signed By: Eddi conn/willow:02/28/2024 08:40:21 letter sent: Normal Exam ACR BI-RADS Category 2: Benign
== END ==
PROVIDERS: PCP Internal Medicine; Referring Provider Internal Medicine; Visit Provider Internal Medicine
DX: Z12.31 Encounter for screening mammogram for malignant neoplasm of breast (principal); R92.333 Mammographic heterogeneous density, bilateral breasts
CPT/HCPCS: 77063; 77067

== ENCOUNTER 2024-05-22 12:51 | Outpatient (CLI) | payer MEDICARE, MEDICAID, SELFPAY ==
[2024-05-22] VITALS (8 sets, daily range): BP systolic 144–166; BP diastolic 67–78; PULSE 54–62; RESP 16–19; TEMP 36.6; O2SAT 98–100
--- NOTE | 2024-05-22 12:53 | DI.RAD.S_ITS ---
PROCEDURE: PAIN L/S FACET INJ/BLK 1ST OSMANI INDICATIONS: Bilateral L4-L5 and S1 medial branch block LA COMPARISON: [facility], XA, PAIN L/S FACET INJ/BLK 1ST OSMANI, 12/08/2022, 14:23. FINDINGS/IMPRESSION: Fluoroscopic spot filming was performed to verify placement of spinal needles at the L4-5 and S1 level(s), as labeled on the films. Appropriate location(s) of the needle tip(s) was confirmed by injection of iodinated contrast. Dictated by: Scot Eli M.D. on 05/22/2024 at 17:16 Approved by: Scot Eli M.D. on 05/22/2024 at 17:16
[2024-05-22] MEDS: MIDAZOLAM 2 MG/2 ML VIAL IV (13:57)
[2024-05-22] MEDS: LIDOCAINE 1% 20 ML 5 ML INJ (14:02)
[2024-05-22] MEDS: BUPIVACAINE 0.5% (PF) 10 ML VIAL 5 ML INJ (14:02)
[2024-05-22] MEDS: iopamidoL 15 ML VIAL 3 ML INJ (14:02)
--- NOTE | 2024-05-22 14:19 | P.PCN_ITS ---
Date/Time/Diagnoses Date of procedure: 05/22/24 Time of procedure: 14:20 Pre-procedure diagnosis: 1. FACET ARTHROPATHY Post-procedure diagnosis: same Procedure Notes Procedure: 1. BILATERAL- L4, L5 and S1 DIAGNOSTIC MB BLOCKS with LA Anesthetic Indications: Pat is referred by Dr. Yanes for treatment of Bilateral Axial LBP. Physician: Sánchez Pizarro Total Fluoroscopy time (seconds): 11 Total sedation minutes: 16 Complications: none Procedure in detail & Post-procedure care: DESCRIPTION OF PROCEDURE Fluoroscopically guided, contrast-controlled bilateral L4, L5 and S1 medial branch blocks with 0.5cc of 0.5% Marcaine. Following review of allergy and review of potential side effects and complications, including, but not necessarily limited to, infection, allergic reaction, local tissue breakdown, nerve injury, paralysis, stroke and possible , the patient indicated that the patient understood and agreed to proceed. An informed consent document was signed by the patient, witnessed by a nurse, and placed in the patient's chart. After review of previous anaesthesic history and IV conscious sedation the patient was deemed safe to proceed with today's procedure with IV conscious sedation as ASA class II designation. Safety time-out was performed to confirm patient ID, procedure to be performed and site of procedure. IV sedation was accomplished with a combination of 2mg of Versed was administered by the RN after DO order, titrated to patient comfort during the course of the procedure while the patient remained responsive to all verbal commands In the prone position, following sterile prep and drape of the lumbar region, the right L4, L5 and S1 anatomical location of the medial branch of the dorsal ramus was identified fluoroscopically. Subsequently an anesthetic skin wheal us ing 1% lidocaine solution was initiated at each of the anatomical spots. Subsequently then a 22-gauge 3.5-inch spinal needle was atraumatically introduced and advanced under fluoroscopic guidance at each of the corresponding sites at the right L4, L5 and S1 MB. After negative aspiration, 0.2cc of Isovue 200 was injected, confirming placement without vascular or intrathecal uptake. Subsequently then 0.5cc of 0.5% Marcaine solution was injected at each of the corresponding sites at the right L4, L5 and S1 medial branch locations. The identical procedure was replicated on the left. The patient tolerated the procedure well without signs or symptoms of complications prior to transfer to the recovery area continued monitoring without incident. Post-procedure, the patient was monitored initiating provocative activities to measure the amount of relief from block of the facetogenic pain. The patient reported a VAS of 7 prior to the procedure and a post-procedure VAS of 1. It has been a pleasure to assist in the diagnostic and therapeutic care of your patient. POST OP INSTRUCTIONS The patient was provided with a Pain Log to complete over the next several hours and subsequent days prior to the patient's follow up with the ordering physician. If the patient has project finance analyst relief to the solution applied, then they may be a candidate for medial branch rhizotomy. The patient is aware, was provided, once again, with a Pain Log and will follow up with the referring physician for review and clinical correlation
== END 2024-05-22 14:43 | disposition home or self-care (01) ==
LOC: RAD 12:52
PROVIDERS: PCP Internal Medicine; Referring Provider Physical Medicine & Rehabilitation; Visit Provider Physical Medicine & Rehabilitation
DX: M47.816 Spondylosis without myelopathy or radiculopathy, lumbar region (principal); M47.817 Spondylosis without myelopathy or radiculopathy, lumbosacral region
CPT/HCPCS: 64493; 64494; 99152; J2250

== ENCOUNTER → 2024-07-18 16:53 | Outpatient (CLI) | payer MEDICARE, MEDICAID, SELFPAY ==
[2024-07-18 18:15] LABS: Alanine Aminotransferase 19 IU/L (<35); Albumin 4.5 g/dL (3.5-5.0); Albumin Globulin Ratio 1.6 (1.0-2.8); Alkaline Phosphatase 63 U/L (38-126); Aspartate Aminotransferase 29 IU/L (14-36); BUN Creatinine Ratio 25.2 (6-22); Bilirubin Total 0.9 mg/dL (0.2-1.3); Blood Urea Nitrogen 41 mg/dL (7-17); Carbon Dioxide 24 mmol/L (22-32); Chloride 108 mmol/L (98-107); Estimated Glomerular Filt Rate 31 mL/min (>60); Globulin 2.9 g/dL (1.7-4.1); Glucose 85 mg/dL (70-99); HEMOLYSIS < 15 (0-50); Phosphorous 3.7 mg/dL (2.8-4.1); Potassium 4.6 mmol/L (3.4-5.1); Sodium 142 mmol/L (137-145); Total Protein 7.4 g/dL (6.3-8.2)
== END ==
LOC: LAB 16:55
PROVIDERS: PCP Internal Medicine; Referring Provider Family Medicine; Visit Provider Family Medicine
DX: N18.32 Chronic kidney disease, stage 3b (principal)
CPT/HCPCS: 36415; 80053; 84100

== ENCOUNTER 2024-07-31 16:07 | Emergency (ER) | payer MEDICARE, MEDICAID, SELFPAY ==
[2024-07-31 16:12] VITALS: BP 138/63; PULSE 51; RESP 16; TEMP 36.9; O2SAT 97; BMI 21.9
--- NOTE | 2024-07-31 16:25 | DI.RAD.S_ITS ---
PROCEDURE: XR CHEST 2V INDICATIONS: L sided rib pain, worse w/ movement and deep inhalation TECHNIQUE: 2 views of the chest were acquired. COMPARISON: None. FINDINGS: Surgical changes and devices: None. Lungs and pleura: Lungs are clear. No pleural effusions or pneumothorax. Mediastinum: Mediastinal contours are normal. Heart size is enlarged. Bones and chest wall: Questionable deformity involving left posterior 7th rib is seen. Soft tissues appear unremarkable. IMPRESSION: No acute cardiopulmonary pathology. No definite displaced rib fractures. Questionable deformity involving left posterior 7th rib. If indicated, dedicated rib series can be done for further evaluation. Dictated by: Christian Kearney M.D. on 07/31/2024 at 16:56 Approved by: Christian Kearney M.D. on 07/31/2024 at 16:58
--- NOTE | 2024-07-31 17:05 | ED_ITS ---
HPI - Back Pain/Injury <Karine Garcia PA-C - Last Filed: 07/31/24 18:29> General Chief Complaint: Back Pain/Injury Stated Complaint: left side px x1day Time Seen by Provider: 07/31/24 16:35 Source: patient and family History of Present Illness HPI Narrative: 84-year-old female with chronic pain, on pain contract with Dr. Pizarro presents to the ED today with left-sided lower rib pain. Patient denies any trauma. States that she has had this left-sided rib pain since yesterday morning. Patient states that the pain is worse when she moves and not very painful when she is sitting still. Patient localizes it to the left lower ribs specifically. No abdominal pain, chest pain, shortness of breath, lightheadedness, dizziness, syncope. Patient has been taking the Percocet that she usually takes for her chronic pain. Related Data Home Medications Medication Instructions Recorded Confirmed ascorbic acid (vitamin C) 500 mg 500 mg PO QDAY ##0 09/23/12 04/23/24 tablet cholecalciferol (vitamin D3) 25 1,000 unit PO QDAY ##0 09/23/12 04/23/24 mcg (1,000 unit) tablet (Vitamin D3) nitroglycerin 0.4 mg sublingual 0.4 mg sublingual PRN ##0 09/23/12 04/23/24 tablet (Nitrostat) calcium carbonate (Calcium 500) 2 tab PO BID 10/04/17 04/23/24 cranberry extract 405 mg capsule 405 mg PO DAILY 10/04/17 04/23/24 metoprolol tartrate 50 mg tablet 50 mg PO BID 10/04/17 04/23/24 pantoprazole 40 mg tablet,delayed 40 mg PO DAILY 02/07/19 04/23/24 release (Protonix) acetaminophen 500 mg tablet 500 mg PO Q6H PRN 06/08/22 04/23/24 (Tylenol Extra Strength) naloxone 4 mg/actuation nasal spray intranasal 06/08/22 04/23/24 spray (Narcan) ramipril 10 mg capsule 10 mg PO DAILY 06/08/22 04/23/24 rosuvastatin 5 mg tablet 5 mg PO BEDTIME 06/08/22 04/23/24 dorzolamide 22.3 mg-timolol 6.8 1 drp EYE-LEFT BID 08/02/22 04/23/24 mg/mL eye drops levothyroxine 75 mcg tablet 75 mcg PO DAILY 06/13/23 04/23/24 amlodipine 5 mg tablet 5 mg PO DAILY 12/28/23 04/23/24 erythromycin 5 mg/gram (0.5 %) eye EYE-BOTH 12/28/23 04/23/24 ointment hydrocodone 10 mg-acetaminophen 1 tab PO 3XD PRN 12/28/23 04/23/24 325 mg tablet etanercept 25 mg/0.5 mL (0.5 mL) 25 mg SUBCUT QWEEK 04/23/24 04/23/24 subcutaneous syringe (Enbrel) Previous Rx's Medication Instructions Recorded tramadol 50 mg tablet 50 mg PO BID PRN pain #42 tabs 04/23/24 meloxicam 15 mg tablet 15 mg PO DAILY #30 tabs 05/10/24 Allergies Allergy/AdvReac Type Severity Reaction Status Date / Time Sulfa (Sulfonamide Allergy Mild Rash, hives Verified 04/23/24 11:04 Antibiotics) [SULFA (SULFONAMIDE ANTIBIOTICS)] amitriptyline AdvReac Mild Verified 04/23/24 11:04 gabapentin AdvReac Mild AGITATION Verified 04/23/24 11:04 meperidine [MEPERIDINE] AdvReac Mild Confusion, Verified 04/23/24 11:04 I get a little nutsy from it. Opioids-Meperidine and AdvReac Mild Hallucinati Verified 04/23/24 11:04 Related ng propoxyphene [PROPOXYPHENE] AdvReac Mild Confusion, Verified 04/23/24 11:04 I get a little nutsy. DARVOCET A500 AdvReac Mild Hallucinati Uncoded 04/23/24 11:04 ng Review of Systems <Karine Garcia PA-C - Last Filed: 07/31/24 18:29> Constitutional Constitutional: Denies chills, Denies fatigue, Denies fever(s), Denies frequent falls, Denies lethargy and Denies weakness Eyes Eyes: Denies change in vision, Denies eye discharge, Denies irritation and Denies loss of vision ENT Ears, Nose, Mouth, and Throat: Denies change in voice, Denies dizziness, Denies neck pain, Denies sore throat and Denies throat swelling Cardiovascular Cardiovascular: Denies chest pain, Denies irregular heart rhythm, Denies lightheadedness, Denies palpitations, Denies dyspnea, Denies dyspnea on exertion and Denies orthopnea Respiratory Respiratory: Denies cough, Denies dyspnea, Denies dyspnea on exertion and Denies wheezing Gastrointestinal Gastrointestinal: Denies abdominal pain, Denies change in bowel habits, Denies diarrhea, Denies nausea and Denies vomiting Musculoskeletal Musculoskeletal: Denies neck pain and Denies numbness Comments: Left lower rib pain Integumentary/Breasts Skin/Breast: Denies pruritus, Denies erythema, Denies rash and Denies wounds Neurologic Neurologic: Denies behavioral changes, Denies confusion, Denies dizziness, Denies frequent falls, Denies loss of vision, Denies numbness and Denies weakness Psychiatric Psychiatric: Denies anxiety, Denies behavioral changes, Denies confusion, Denies depression, Denies homicidal ideation and Denies suicidal ideation Endocrine Endocrine: Denies fatigue, Denies flushing and Denies palpitations Hematologic/Lymphatic Hematologic/Lymphatic: Denies easy bruising Allergic/Immunologic Allergic/Immunologic: Denies urticaria, Denies throat swelling and Denies wheezing Patient History <Karine Garcia PA-C - Last Filed: 07/31/24 18:29> Medical History Facet arthropathy, lumbar Osteoarthritis of right hip Osteoarthritis of right knee Lumbar spinal stenosis Myofascial pain Right knee pain Bilateral hip pain Spondylosis without myelopathy or radiculopathy, lumbosacral region Cervical radiculopathy Cervical spondylosis Lumbar radiculopathy Lumbar spondylolysis DDD (degenerative disc disease) Cervicalgia Low back pain Sacrococcygeal disorders, not elsewhere classified Lumbar degenerative disc disease Diverticulosis Rectal bleeding Goiter Osteoporosis Labile hypertension Rheumatoid arthritis Surgical History Hx laparoscopic cholecystectomy Social History household members: family alcohol intake: never substance use type: does not use Exam <Karine Garcia PA-C - Last Filed: 07/31/24 18:29> Narrative Exam Narrative: Const General:?cooperative, healthy appearing and comfortable [facility] Head:?normal to inspection Ears:?hearing grossly normal bilaterally Nose:?external nose normal Face and sinus:?normal facial exam and sinuses nontender Mouth:?oral mucosae normal Throat:?posterior oropharynx normal Eyes General:?appearance normal, both eyes and all related structures Neck Neck:?normal visual inspection and no lymphadenopathy noted Resp Effort & Inspection:?normal respiratory effort Auscultation:?clear to auscultation bilaterally Cardio Rate:?regular rate Rhythm:?regular rhythm Musculoskeletal/GI There is bony tenderness to palpation in the left lower ribs on the lateral side. No bruising. No abdominal tenderness to palpation. No CVA tenderness. Neuro General:?patient alert, patient awake and patient oriented x3 Initial Vital Signs Initial Vital Signs: Vital Signs Temperature 98.5 F 07/31/24 16:12 Pulse Rate 51 L 07/31/24 16:12 Respiratory Rate 16 07/31/24 16:12 Blood Pressure 138/63 07/31/24 16:12 Pulse Oximetry 97 07/31/24 16:12 Oxygen Delivery Method Room Air 07/31/24 16:12 <Mitesh Beach MD - Last Filed: 07/31/24 18:39> Initial Vital Signs Initial Vital Signs: Vital Signs Temperature 98.5 F 07/31/24 16:12 Pulse Rate 51 L 07/31/24 16:12 Respiratory Rate 16 07/31/24 16:12 Blood Pressure 138/63 07/31/24 16:12 Pulse Oximetry 97 07/31/24 16:12 Oxygen Delivery Method Room Air 07/31/24 16:12 Course <Karine Garcia PA-C - Last Filed: 07/31/24 18:29> Orders Ordered: ED Orders 07/31/24 16:25 Chest [XR chest 2V] Stat 07/31/24 17:06 CT chest wo con Stat Vital Signs Vital signs: Vital Signs - 8 hr 07/31/24 16:12 07/31/24 18:23 Temperature 98.5 F Pulse Rate 51 L 52 L Respiratory Rate 16 16 Blood Pressure 138/63 156/66 H Pulse Oximetry 97 99 Oxygen Delivery Method Room Air Room Air <Mitesh Beach MD - Last Filed: 07/31/24 18:39> Orders Ordered: ED Orders 07/31/24 16:25 Chest [XR chest 2V] Stat 07/31/24 17:06 CT chest wo con Stat Vital Signs Vital signs: Vital Signs - 8 hr 07/31/24 16:12 07/31/24 18:23 Temperature 98.5 F Pulse Rate 51 L 52 L Respiratory Rate 16 16 Blood Pressure 138/63 156/66 H Pulse Oximetry 97 99 Oxygen Delivery Method Room Air Room Air MDM - Back Pain/Injury <Karine Garcia PA-C - Last Filed: 07/31/24 18:29> MDM Narrative Medical decision making narrative: 84-year-old female with chronic pain, on pain contract with Dr. Pizarro presents to the ED today with left-sided lower rib pain. Chest x-ray was obtained which shows no acute cardiopulmonary pathology. No definite displaced rib fractures. Questionable deformity involving left posterior 7th rib. CT was obtained to further characterize this finding. CT findings are as follows: IMPRESSION: 1. No cause for patient's pain is identified. 2. Pulmonary nodules as described above including a 6 mm right apical nodule with spiculated borders. Recommend follow-up CT chest in 3-6 months. 3. Cardiomegaly. Dilated ascending thoracic aorta measuring up to 4.1 cm. 4. Please see above for additional findings. Discussed findings with patient. Recommend supportive care with her pain medications and lidocaine patches, heat packs/ice packs. Recommend follow-up with PCP as soon as possible. ED return precautions were discussed with patient. Patient verbalized understanding. Medical records reviewed: Yes Discharge Plan Departure Patient Disposition: Home Clinical Impression: Rib pain Instructions: DI for Rib Contusion Activity Restrictions/Additional Instructions: You were evaluated in the ED today for left-sided rib pain. The CT scan did not show any rib fractures. The CT scan did a right-sided lung nodule. It is recommended that you follow-up with your primary care provider regarding this. It is possible that your rib pain is from a rib contusion. You may continue taking your pain medications, applying ice and heat packs, lidocaine patches. Return to the ED if you have worsening symptoms, chest pain, shortness of breath. Prescriptions: No Action ascorbic acid (vitamin C) 500 MG tablet 500 mg PO QDAY Qty: 0 cholecalciferol (vitamin D3) [Vitamin D3] 1,000 unit Tablet 1,000 unit PO QDAY Qty: 0 nitroglycerin [Nitrostat] 0.4 MG tablet, sublingual 0.4 mg Sublingual PRN Qty: 0 meloxicam 15 mg tablet 15 mg PO DAILY Qty: 30 2RF calcium carbonate [Calcium 500] 500 mg calcium (1,250 mg) Tablet 2 tab PO BID cranberry extract 405 mg Capsule 405 mg PO DAILY metoprolol tartrate 50 mg tablet 50 mg PO BID Patient Comments: take 1 tablet by mouth twice a day pantoprazole [Protonix] 40 mg Tablet,Delayed Release (Dr/Ec) 40 mg PO DAILY dorzolamide-timolol 22.3-6.8 mg/mL drops 1 drp EYE-LEFT BID Patient Comments: instill 1 drop into left eye twice a day levothyroxine 75 mcg tablet 75 mcg PO DAILY amlodipine 5 mg tablet 5 mg PO DAILY erythromycin 5 mg/gram (0.5 %) ointment EYE-BOTH hydrocodone-acetaminophen 10-325 mg tablet 1 tab PO 3XD PRN ramipril 10 mg capsule 10 mg PO DAILY rosuvastatin 5 mg tablet 5 mg PO BEDTIME Patient Comments: take 1 tablet by mouth nightly naloxone [Narcan] 4 mg/actuation spray,non-aerosol intranasal acetaminophen [Tylenol Extra Strength] 500 mg tablet 500 mg PO Q6H PRN Enbrel 25 mg/0.5 mL (0.5) syringe 25 mg SUBCUT QWEEK Patient Comments: [NO ORIGINAL SIG] tramadol 50 mg tablet 50 mg PO BID PRN (Reason: pain) Qty: 42 1RF Referrals: Francoise Yanes MD [Primary Care Provider] - Stand Alone Forms: Patient Portal/API/Survey ED Sign-out <Mitesh Beach MD - Last Filed: 07/31/24 18:39> Cosign ED Attending Giulianoature Attestation: I was immediately available in the department for consultation. ?This documentation has been reviewed and I agree with assessment and plan. Supervised by Mitesh Beach MD
--- NOTE | 2024-07-31 17:06 | DI.CT.S_ITS ---
PROCEDURE: CT CHEST WO CON INDICATIONS: Left sided rib pain TECHNIQUE: Noncontrast 5 mm thick sections acquired from the pulmonary apices to the posterior costophrenic angles. 1 mm lung window, 5 mm thick coronal and sagittal and 7 mm axial MIP reformats were then acquired. For radiation dose reduction, the following was used: automated exposure control, adjustment of mA and/or kV according to patient size. COMPARISON: None. FINDINGS: Image quality: Diagnostic. Lower Neck: No enlarged lymph nodes. Thyroid: No thyroid nodules which require sonographic follow up, per consensus guidelines. Axillae: No enlarged lymph nodes. Chest Wall: Unremarkable. Bones: Multilevel degenerative changes of the spine. Decreased osseous mineralization. Lungs and Pleura: No pneumothorax or pleural effusions. Right apical pulmonary nodule measuring 6 mm with mildly spiculated margins (3/68). Sub solid right lower lobe nodule measuring 5 mm (3/214). Triangular right lower lobe nodule measuring 5 mm (3/178). Heart: Heart size is enlarged. Mild coronary artery calcifications. Small pericardial effusion. Thoracic Vessels: Mildly dilated ascending thoracic aorta measuring 4.1 cm. Atherosclerotic vascular calcifications. Mediastinum and Mary: No enlarged lymph nodes. Esophagus: No wall thickening. No hiatal hernia. Upper Abdomen: Visualized upper abdomen solid organs and bowel loops appear normal. IMPRESSION: 1. No cause for patient's pain is identified. 2. Pulmonary nodules as described above including a 6 mm right apical nodule with spiculated borders. Recommend follow-up CT chest in 3-6 months. 3. Cardiomegaly. Dilated ascending thoracic aorta measuring up to 4.1 cm. 4. Please see above for additional findings. Dictated by: Bronson Mann M.D. on 07/31/2024 at 17:58 Approved by: Bronson Mann M.D. on 07/31/2024 at 18:04
[2024-07-31 18:23] VITALS: BP 156/66; PULSE 52; RESP 16; O2SAT 99
== END 2024-07-31 18:23 | disposition home or self-care (01) ==
PROVIDERS: Emergency Provider Student in an Organized Health Care Education/Training Program; PCP Internal Medicine
DX: R07.81 Pleurodynia (principal)
CPT/HCPCS: 71046; 71250; 99281; 99284

== ENCOUNTER 2024-09-04 13:51 | Outpatient (CLI) | payer MEDICARE, MEDICAID, SELFPAY ==
[2024-09-04] VITALS (8 sets, daily range): BP systolic 151–192; BP diastolic 70–90; PULSE 48–60; RESP 14–16; TEMP 36.6; O2SAT 92–100
[2024-09-04] MEDS: MIDAZOLAM 2 MG/2 ML VIAL IV (15:40)
[2024-09-04] MEDS: iopamidoL 15 ML VIAL 3 ML INJ (15:45)
[2024-09-04] MEDS: DEXAMETHASONE 10 MG/ML VIAL 20 MG INJ (15:45)
[2024-09-04] MEDS: BETAMETHASONE 30 MG/5 ML MDV 12 MG INJ (15:46)
[2024-09-04] MEDS: BUPIVACAINE 0.25% (PF) VIAL 2 ML INJ (15:46)
[2024-09-04] MEDS: LIDOCAINE 1% 20 ML INJ (15:48)
[2024-09-04] MEDS: BETAMETHASONE 30 MG/5 ML MDV 6 MG INJ (15:49)
--- NOTE | 2024-09-04 16:03 | PM.PROC.IR.1 ---
Date/Time/Diagnoses Date of procedure: 09/04/24 Time of procedure: 16:04 Pre-procedure diagnosis: 1. FORAMINAL STENOSIS WITH LE SYMPTOMS Procedure Notes Procedure: 1. FLUOROSCOPICALLY GUIDED CONTRAST CONTROLLED TRANSFORAMINAL EPIDURAL STEROID INJECTION - BILATERAL L4/5 TFESI Indications: Gela is referred by Dr. Yanes for treatment of Foraminal Stenosis with bilateral LE Symptoms Physician: Sánchez Pizarro Total Fluoroscopy time (seconds): 12 Total sedation minutes: 16 Complications: none Procedure in detail & Post-procedure care: FINDINGS Foraminal Nerve Root Compression secondary to disc disease and facet hypertrophy DESCRIPTION OF PROCEDURE Following review of allergy and review of potential side effects and complications, including, but not necessarily limited to, infection, allergic reaction, local tissue breakdown, stroke, temporary or permanent nerve injury, paralysis, and possible , the patient indicated that the patient understood and agreed to proceed. An informed consent document was signed by the patient, witnessed by a nurse, and placed in the patient's chart. Additionally, other treatment options including medications, modalities, and physical therapy were reviewed with the patient. After review of previous anaesthesic history and IV conscious sedation the patient was deemed safe to proceed with today?s procedure with IV conscious sedation as ASA class II designation. Safety time-out was performed to confirm patient ID, procedure to be performed and site of procedure. IV sedation was accomplished with a combination of 2mg of Versed was administered by the RN after DO order, titrated to patient comfort during the course of the procedure while the patient remained responsive to all verbal commands In the prone position following sterile prep and drape of the lumbar region, the right L4/5 posterior neuroforamen was identified fluoroscopically. The skin was anesthetized via a 25-gauge 1.5-inch needle with 1% lidocaine solution. At this point, a 25-gauge 3.5-inch spinal needle was atraumatically introduced and advanced under fluoroscopic guidance through the posterior right L4/5 neuroforamen to approximately the anterior aspect of the canal. Depth was confirmed on lateral view. Following negative aspiration, injection of approximately 1.5cc of Isovue 200 under live fluoroscopy in the AP view confirmed excellent flow along the nerve root, into the epidural space without vascular or intrathecal uptake observed Radiological data, including multiple fluoroscopic views of the lumbosacral spine, reveal a spinal needle at the right L4/5 posterior neuroforamen. Subsequent views show flow of contrast material flowing superiorly and inferiorly along the nerve root confirming epidural flow. Subsequently, a test dose of 1.5cc of 1% lidocaine solution was administered and patient was observed for two minutes for signs or symptoms of complications, including abdominal pain, shortness of breath, bilateral upper or lower extremity weakness, nausea and vomiting, prior to steroid injection. At this point, a total of 2cc or 10mg of dexamethasone and 6mg betamethasone was injected without incident. Attention was then refocused to the left L4/5 level where the identical procedure was replicated. The procedure tolerated the procedure well without signs or symptoms of complications prior to transfer to the recovery area continued monitoring without incident. The patient was then transferred to the recovery area where they were observed for an appropriate time after the injection. The patient reported a VAS score of 7 prior to the procedure and a post-procedure VAS of 0. POST OP INSTRUCTIONS The patient was provided a Pain Log to continue to record their response to the target-specific procedure prior to follow-up visit with their referring physician. Additionally, specific post-injection care instructions and a contact number to our office were provided if concerns arise regarding possible complications associated with the procedure are suspected.
== END 2024-09-04 16:20 | disposition home or self-care (01) ==
LOC: RAD 13:52
PROVIDERS: PCP Internal Medicine; Referring Provider Internal Medicine; Visit Provider Physical Medicine & Rehabilitation
DX: M51.16 Intervertebral disc disorders with radiculopathy, lumbar region (principal); M48.062 Spinal stenosis, lumbar region with neurogenic claudication
CPT/HCPCS: 64483; 99152; J0702; J1100; J2250

== ENCOUNTER → 2024-10-19 16:29 | Outpatient (CLI) | payer MEDICARE, MEDICAID, SELFPAY ==
--- NOTE | 2024-10-19 16:31 | DI.RAD.S_ITS ---
PROCEDURE: XR KNEE RT 3V INDICATIONS: RIGHT KNEE PAIN TECHNIQUE: 3 views of the knee were acquired. COMPARISON: [facility], , XR KNEE RT 3V, 02/08/2023, 17:21. FINDINGS: Bones: No fractures or dislocations. No suspicious bony lesions. Tricompartmental arthritic changes most severe laterally. Soft tissues: Moderate joint effusion. No suspicious soft tissue calcifications. IMPRESSION: Prominent arthritic changes. No visualized acute fracture or dislocation. However, if clinical concern and/or pain persist, short interval imaging followup in 7-10 days is recommended, as occult injury cannot be definitively excluded. Dictated by: Paulina Sawyer M.D. on 10/19/2024 at 17:08 Approved by: Paulina Sawyer M.D. on 10/19/2024 at 17:09
== END ==
PROVIDERS: PCP Internal Medicine; Referring Provider Physical Medicine & Rehabilitation; Visit Provider Physical Medicine & Rehabilitation
DX: M17.11 Unilateral primary osteoarthritis, right knee (principal); M25.561 Pain in right knee; M25.461 Effusion, right knee; G89.29 Other chronic pain
CPT/HCPCS: 73562

== ENCOUNTER → 2025-02-01 16:42 | Outpatient (CLI) | payer MEDICARE, MEDICAID, SELFPAY | PROVIDERS: PCP Internal Medicine; Referring Provider Internal Medicine; Visit Provider Internal Medicine | DX: G89.4 Chronic pain syndrome (principal); F11.90 Opioid use, unspecified, uncomplicated | CPT/HCPCS: 80307 ==

== ENCOUNTER → 2025-02-18 15:10 | Outpatient (CLI) | payer MEDICARE, MEDICAID, SELFPAY ==
--- NOTE | 2025-02-18 15:15 | DI.CT.S_ITS ---
PROCEDURE: CT CHEST WO CON INDICATIONS: Pulmonary nodule < 6 mm TECHNIQUE: Noncontrast 2.0-2.5 mm thick sections acquired from the pulmonary apices to the posterior costophrenic angles. 7 mm thick axial MIP and 5 mm coronal and sagittal reformats were then acquired. For radiation dose reduction, the following was used: automated exposure control, adjustment of mA and/or kV according to patient size. COMPARISON: [facility], CT, [facility], 07/31/[facility]24, 17:21. FINDINGS: Image quality: Diagnostic. Lower Neck: No enlarged lymph nodes. Thyroid: No thyroid nodules which require sonographic follow up, per consensus guidelines. Axillae: No enlarged lymph nodes. Chest Wall: Unremarkable. Bones: Unremarkable. Lungs and Pleura: No pneumothorax or pleural effusions. Similar appearance of right apical nodule measuring approximately 6 mm with mildly spiculated borders. Stable sub solid right lower lobe nodule measuring 5 mm (3/186). Stable triangular right lower lobe nodule measuring 5 mm (3/154). Heart: Heart size is enlarged, stable. Mild coronary artery calcifications. No pericardial effusion. Thoracic Vessels: Mildly dilated ascending thoracic aorta measuring 4.1 cm. Atherosclerotic vascular calcifications. Mediastinum and Mary: No enlarged lymph nodes. Esophagus: No wall thickening. No hiatal hernia. Upper Abdomen: Visualized upper abdomen solid organs and bowel loops appear normal. IMPRESSION: 1. Stable right apical pulmonary nodule measuring 6 mm with spiculated borders. Recommend 6-12 month follow-up CT to assess stability. 2. Mildly dilated ascending thoracic aorta measuring 4.1 cm is stable. Stable cardiomegaly. 3. Please see above for additional findings. Dictated by: Bronson Mann M.D. on 02/18/2025 at 16:56 Approved by: Bronson Mann M.D. on 02/18/2025 at 17:02
== END ==
LOC: CT 15:14
PROVIDERS: PCP Internal Medicine; Referring Provider Internal Medicine; Visit Provider Internal Medicine
DX: R91.1 Solitary pulmonary nodule (principal); I77.810 Thoracic aortic ectasia; I51.7 Cardiomegaly; I25.10 Atherosclerotic heart disease of native coronary artery without angina pectoris
CPT/HCPCS: 71250